=== PATIENT | male | born 1955 | race Caucasian/White ===

== ENCOUNTER → 2020-11-11 08:45 | Outpatient (BNVA) | payer MEDICAID, SELFPAY | PROVIDERS: PCP Internal Medicine; Visit Provider Internal Medicine Pulmonary Disease | DX: J44.9 Chronic obstructive pulmonary disease, unspecified (principal); J45.20 Mild intermittent asthma, uncomplicated; R91.8 Other nonspecific abnormal finding of lung field; R06.00 Dyspnea, unspecified; R60.0 Localized edema; Z87.891 Personal history of nicotine dependence; Z79.899 Other long term (current) drug therapy | CPT/HCPCS: 99212 ==

== ENCOUNTER 2020-11-22 16:51 | Emergency (ER) | payer MEDICAID, SELFPAY ==
[2020-11-22 16:57] VITALS: BP 170/103; PULSE 92; RESP 18; TEMP 37.2; O2SAT 20; BMI 34.7
--- NOTE | 2020-11-22 16:59 | XR_ITS ---
EXAMINATION: XR hand wrist LT CLINICAL INFORMATION: Reason for Exam pt s/p laceration c saw COMPARISON: None. TECHNIQUE: 3 views left hand FINDINGS: There is posttraumatic deformity of the distal tuft of the third distal phalanx with absence of the soft tissues and osseous structures. There is a displaced ossific fracture fragment dorsally and medially. There is soft tissue swelling and deformity. No other abnormality seen in the remaining fingers and hand. XR/XR hand wrist LT IMPRESSION: Posttraumatic deformity of the distal tuft of the third distal phalanx with absence of the distal tuft and surrounding soft tissues consistent with history of laceration. There is a displaced ossific fragment dorsally and medially. There is diffuse soft tissue swelling and deformity.
--- NOTE | 2020-11-22 17:25 | ED.WOUNDLAC ---
HPI - Wound/Laceration General Chief Complaint: Wound/Laceration Stated Complaint: lac with saw Time Seen by Provider: 11/22/20 16:59 Source: patient Mode of arrival: ambulatory Limitations: no limitations History of Present Illness HPI narrative: Patient presents to ED for left middle finger laceration. Patient states he was fixing his boiler and was using a saw and his finger got caught in the saw by accident while not looking. Patient states he is up-to-date with his tetanus. Patient states no other trauma. Related Data Home Medications Medication Instructions Recorded Confirmed acetaminophen 500 mg capsule 500 mg PO QID PRN 11/11/20 albuterol sulfate 90 mcg/actuation 2 puff INHALATION QID 11/11/20 aerosol inhaler allopurinol 100 mg tablet 100 mg PO DAILY 11/11/20 amlodipine 10 mg tablet 10 mg PO DAILY 11/11/20 aspirin 81 mg tablet,delayed 81 mg PO DAILY 11/11/20 release atorvastatin 40 mg tablet 40 mg PO DAILY 11/11/20 bisacodyl 5 mg tablet,delayed 5 mg PO BEDTIME 11/11/20 release fluticasone propionate 50 1 spray INTRANASAL DAILY 11/11/20 mcg/actuation nasal spray,suspension glyburide 5 mg tablet 5 mg PO DAILY 11/11/20 lisinopril 40 mg tablet 40 mg PO DAILY 11/11/20 metformin 1,000 mg tablet 1,000 mg PO DAILY 11/11/20 omeprazole 20 mg tablet,delayed 20 mg PO DAILY 11/11/20 release ondansetron HCl 4 mg tablet 4 mg PO Q6H 11/11/20 peg 3350-electrolytes 236 240 ml PO Q10M 11/11/20 gram-22.74 gram-6.74 gram-5.86 gram solution tramadol 50 mg tablet 50 mg PO DAILY 11/11/20 Previous Rx's Medication Instructions Recorded prednisone 5 mg tablet 5 mg PO DAILY #30 tab 08/29/20 lorazepam 1 mg tablet 1 mg PO ONCE PRN 1 Days #1 tab 11/11/20 clindamycin HCl 300 mg PO TID 10 Days #30 cap 11/22/20 oxycodone-acetaminophen [Percocet] 1 tab PO TID PRN #9 tab 11/22/20 Allergies Allergy/AdvReac Type Severity Reaction Status Date / Time penicillin V Allergy Unknown Unknown Verified 11/11/20 08:48 Penicillins [PENICILLINS] Allergy Unknown RASH Verified 11/11/20 08:48 Review of Systems Review of Systems: Yes all other systems are reviewed and are negative Constitutional: Constitutional: Reports as per HPI and Reports no additional constitutional complaints Eyes: Eyes: Reports as per HPI and Reports no additional eye complaints ENT: Reports system reviewed and no additional complaints, except as documented and Reports as per HPI Cardiovascular: Cardiovascular: Reports as per HPI and Reports no additional cardiovascular complaints Respiratory: Respiratory: Reports as per HPI and Reports no additional respiratory complaints Gastrointestinal: Gastrointestinal: Reports as per HPI and Reports no additional gastrointestinal complaints Genitourinary: Genitourinary: Reports no additional male genitourinary complaints and Reports as per HPI Musculoskeletal: Musculoskeletal: Reports no additional musculoskeletal complaints and Reports as per HPI Comments: Left middle finger laceration. Neurologic: Reports system reviewed and no additional complaints, except as documented and Reports as per HPI Psychiatric: Psychiatric: Reports no additional psychiatric complaints and Reports as per HPI [facility] Past Medical History Medical History (Updated 11/23/20 @ 00:00 by Judy Smith) Diabetes HTN (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) Social History Social History (Updated 11/11/20 @ 08:52 by Sabrina Wilson MA) Smoking Status: Never smoker Use of substances other than those prescribed or required for medical reasons: No Advance Directives: No Advance Directives Information Provided: No Physical Exam Vital Signs: Vital Signs: Last Vital Signs Temp 98.9 F 11/22/20 20:00 Pulse 68 11/22/20 20:00 Resp 15 11/22/20 20:00 BP 142/68 H 11/22/20 20:00 Pulse Ox 98 11/22/20 20:00 Body Mass Index 34.7 Const: General: cooperative, healthy appearing, comfortable, no acute distress, well developed, alert, awake and Physically active Orientation/consciousness: patient oriented x3 HENMT: Head: Yes normal to inspection and Yes No palpable skull fracture present Eyes: General: appearance normal, both eyes and all related structures Neck: Neck: Yes normal visual inspection, Yes full ROM, Yes no lymphadenopathy, Yes no meningeal signs, Yes trachea midline, Yes supple and No tender Chest: Chest palpation & inspection: normal inspection of the chest and normal palpation of entire chest wall Resp: Effort & Inspection: normal respiratory effort and able to speak in complete sentences Cardio: Jugular venous distension: no JVD Heart sounds: S1 normal heart sound present and S2 normal heart sound present GI: Inspection: Yes normal to inspection and No abdominal wall ecchymosis Palpation (GI): Soft to palpation, not firm, nontender, no guarding and not rigid : General: Yes CVA tenderness and Yes no CVA tenderness Back/Spine/Pelvis: Back: no CVA tenderness and CVA tenderness Skin: General skin exam: no rashes or lesions noted and elasticity normal Neuro: General: patient oriented x3, no meningeal signs and CN's II-XI intact bilaterally Cranial nerves: Yes CN's II-XII intact bilaterally Extrem: Other: Left middle finger laceration at the IP through another version presenting as partial amputation/crush injury. Finger is macerated with no borders to bring wound back together. Patient has sensation at the dIP and able to flex and extend finger and at DIP. Psych: Appearance: grossly normal, well kempt and not disheveled Course Course Course Narrative: Patient's laceration is severe when not be able to be repaired in the ED. plan stat x-ray to [facility] any fractures and contact Orthopedic provider on-call. Reevaluation(s) Reevaluation #1: Spoke with PA tomorrow of Orthopedics who contacted Dr. Mar of hand surgeon and recommend patient receive 1 dose of IV antibiotics and very loosely closed the wound as best as possible. Recommend good wound cleaning. And pressure dressing and patient will follow-up with orthopedic clinic. As expected wound margins cannot be repaired will just put some stictcehes to help with the bleeding. Do not need any preop labs. States patient will have office procedure. Time: 18:00 Reevaluation #2: Patient wound was clean with normal saline and Betadine. Also normal saline flush was used to clean directly into the wound. Left middle finger was anesthetized with lidocaine 2% and 5 mL was used. Size 4 nylon sutures was used to loosely hold tip of the DIP to rest the finger as recommended by orthopedic PA who was contacted the hand surgeon. 3 sutures were placed Pressure dressing was placed. Patient given clindamycin IV. Patient states he is up-to-date with tetanus. Time: 20:50 MDM - Wound/Laceration MDM Narrative Medical decision making narrative: Complex laceration of left middle finger, partial amputation Discharge Plan Discharge Clinical Impression: Laceration Patient Disposition: Home, Self-Care Instructions: Laceration (ED) Additional Instructions: Return to the ED immediately for worsening pain, fever, chills, profuse bleeding, or any other concerning symptoms. Please follow-up with hand surgeon you were referred to by Tuesday for office procedure for left middle index finger partial amputation at the distal interphalangeal. Keep wound covered at all times. Please be compliant with antibiotics. Prescriptions: New clindamycin HCl 300 mg capsule 300 mg PO TID 10 Days Qty: 30 RF: 0 oxycodone-acetaminophen [Percocet] 5-325 mg tablet 1 tab PO TID PRN (Reason: pain) Qty: 9 RF: 0 No Action prednisone 5 mg tablet 5 mg PO DAILY Qty: 30 RF: 3 lorazepam [Ativan] 1 mg tablet 1 mg PO ONCE PRN (Reason: anxiety) 1 Days Qty: 1 RF: 0 Referrals: Karen Mar MD [Physician] - 2 days (Please follow-up with hand surgeon by Tuesday for partial amputation of left middle distal interphalangeal of middle finger. Patient discharged on antibiotics and pressure dressing.) Interventions: ED Discharge Assessment Last Done: 11/22/20 21:38 Discharge Date/Time: 11/22/20 21:40 Print Language: Croatian
[2020-11-22] MEDS: Lidocaine HCl 2 % MPF 5 ML VIAL INFILTRATI ×2 (18:44→18:45)
[2020-11-22] MEDS: oxyCODONE HCl Immed Release 5 MG TABLET PO (18:44)
[2020-11-22 19:03] VITALS: BP 147/91; PULSE 68; RESP 15; O2SAT 98
[2020-11-22] MEDS: Ketorolac Tromethamine 30 MG/ML VIAL IVPUSH (19:15)
[2020-11-22] MEDS: Clindamycin Phosphate/D5W 600 MG/50 ML PIGGYBACK 100 MG IV (19:15)
[2020-11-22 20:00] VITALS: BP 142/68; PULSE 68; RESP 15; TEMP 37.2; O2SAT 98
== END 2020-11-22 21:40 | disposition home or self-care (01) ==
PROVIDERS: Emergency Provider Emergency Medicine
DX: S68.123A Partial traumatic metacarpophalangeal amputation of left middle finger, initial encounter (principal); W31.2XXA Contact with powered woodworking and forming machines, initial encounter; Y93.89 Activity, other specified; Y92.018 Other place in single-family (private) house as the place of occurrence of the external cause; Y99.9 Unspecified external cause status
CPT/HCPCS: 13131; 73110; 73130; 96365; 96375; 99284; J1885

== ENCOUNTER 2020-11-24 12:19 | Outpatient (REF) | payer MEDICAID, SELFPAY ==
--- NOTE | 2020-11-24 12:24 | XR_ITS ---
EXAMINATION: XR HAND, LEFT CLINICAL INFORMATION: Laceration COMPARISON: Previous x-ray October 2019 TECHNIQUE: PA, lateral, and oblique views of the left hand. FINDINGS: There is amputation of the distal tuft of the left third finger. There is an ossified density in the soft tissues dorsal to the remaining distal phalanx of the third finger. This is new in the interval from October 2019. There is evidence of trauma to the overlying soft tissues. No soft tissue foreign body is seen. There is a cortical excrescence of the radial distal aspect of the proximal phalanx of the fifth finger probably representing an osteochondroma. This is similar to previous exam. XR/XR hand LT 2V IMPRESSION: Amputation of the distal tuft of the third finger and trauma to the overlying soft tissues. Soft tissue ossification dorsal to the remaining distal phalanx questionable for displaced fracture fragment.
== END 2020-11-24 12:20 | disposition home or self-care (01) ==
LOC: HO.XRAY 12:19
PROVIDERS: Visit Provider Orthopaedic Surgery
DX: S68.623A Partial traumatic transphalangeal amputation of left middle finger, initial encounter (principal)
CPT/HCPCS: 73120; 99202

== ENCOUNTER 2020-11-25 07:42 | Day surgery (SDC) | payer MEDICAID, SELFPAY ==
[2020-11-25 08:13] LABS: Glucose, Whole Blood 133 mg/dL (60-115)
[2020-11-25 08:16] VITALS: BMI 36.1
[2020-11-25 08:24] VITALS: BP 169/91; PULSE 58; RESP 18; TEMP 37.2; O2SAT 98
--- NOTE | 2020-11-25 11:37 | W.PM.OPN ---
Operative Note Operative Note Date of Service: 11/25/20 Narrative: Operative Note Narrative: Preop diagnosis: Left middle finger partial traumatic amputation Postop diagnosis: Same Procedure: 1. Left middle finger DIP level revision amputation 2. I&D of left middle finger amputation site Surgeon: Karen Mar MD Anesthesia: Mac plus regional block Findings: Traumatic amputation through distal phalanx with significant soft tissue injury and loss Implants: None Tourniquet time: None minutes EBL: 5.0 ml Specimen: Known Drains: None Complications: None Disposition: Brought to the recovery room in stable condition Plan: Continue 10 day course of oral antibiotics Follow-up in 1 week for wound check Anticipate suture removal 3 weeks postop Indications: The patient is a 65 year old man with a left middle finger traumatic amputation through the distal phalanx secondary to a table saw . The risks and benefits of operative treatment, including but not limited to risk of damage to blood vessels, nerves, tendons, infection, recurrence, persistent pain or numbness, incomplete resolution of preoperative symptoms, or need for further surgery were discussed with the patient and they wished to proceed with surgery. Procedure: Once consent was obtained a digital block was performed by me in preop hold using a combination of 1% lidocaine with 1/100 1000 epinephrine. The patient was brought back to the operating suite and placed in the operating table in a supine position. A tourniquet was applied to the proximal aspect of the left upper extremity and the limb was prepped and draped in a standard surgical fashion. A tourniquet was not inflated during the case. There was significant soft tissue loss and degloving of the distal phalanx. The wound was relatively clean with no debris or signs of infection. The wound was debrided devitalized tissue using iris scissors and # 15. Blade. After evaluating the soft tissues I made the decision to proceed with a DIP level revision amputation. The remaining distal phalanx was carefully detached from its tendinous and ligamentous insertions and the distal phalanx was removed. A rongeur was used to remove some of the cartilage from the distal articular surface of the middle phalanx. The wound was then copiously irrigated with normal saline.. There was a flap of soft tissue attached by a fairly narrow skin bridge across the dorsum of the digit extending ulnarly. Even though it had a fairly narrow pedicle of tissue, a flap of tissue appear to be reasonably well perfused. This flap of tissue was used to cover some dorsally and then over the distal ulnar aspect of the amputation site. It was reapproximated to some of the remaining volar soft tissue using some 4-0 Prolene suture material. I was satisfied with our closure, and the tissue appeared to be well perfused. A sterile dressing was then applied, assuring that it was relatively loose about the digit. The patient appears to have tolerated the procedure well and with no complications. All digits were well vascularized conclusion of the case.
[2020-11-25 13:13] VITALS: BP 147/87; PULSE 59; RESP 18; TEMP 37.1; O2SAT 98
== END 2020-11-25 13:38 | disposition home or self-care (01) ==
PROVIDERS: Visit Provider Orthopaedic Surgery
PROC: (CPT 26951; principal; 2020-11-25 09:50)
DX: S68.623A Partial traumatic transphalangeal amputation of left middle finger, initial encounter (principal); W27.0XXA Contact with workbench tool, initial encounter; Y93.89 Activity, other specified; Y92.9 Unspecified place or not applicable; Y99.8 Other external cause status; I10 Essential (primary) 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; E11.9 Type 2 diabetes mellitus without complications; J45.909 Unspecified asthma, uncomplicated; Z79.51 Long term (current) use of inhaled steroids; Z79.84 Long term (current) use of oral hypoglycemic drugs; Z88.0 Allergy status to penicillin; Z79.899 Other long term (current) drug therapy; Z79.52 Long term (current) use of systemic steroids
CPT/HCPCS: 26951; 11042; 82947

== ENCOUNTER → 2020-12-02 12:33 | Outpatient (BNVA) | payer MEDICAID, SELFPAY | PROVIDERS: Visit Provider Orthopaedic Surgery | DX: S68.623D Partial traumatic transphalangeal amputation of left middle finger, subsequent encounter (principal) | CPT/HCPCS: 99212 ==

== ENCOUNTER → 2020-12-09 08:34 | Outpatient (BNVA) | payer MEDICAID, SELFPAY | PROVIDERS: Visit Provider Orthopaedic Surgery | DX: S68.623D Partial traumatic transphalangeal amputation of left middle finger, subsequent encounter (principal) | CPT/HCPCS: 99212 ==

== ENCOUNTER → 2020-12-10 13:20 | Outpatient (REF) | payer MEDICAID, SELFPAY ==
--- NOTE | 2020-12-10 13:24 | CA_ITS ---
Transthoracic Echocardiogram Patient (Last, First, Middle): Abimael Duncan, Gender: Male Date of : 1955 Age: 65 Procedure Date: 12/10/2020 Procedure Type: Transthoracic Echocardiogram Location: OP Height: 170.18 cm Weight: 104.33 kg BSA: 2.15 m2 Heart Rate: bpm BP: 128 / 70 mmHg Tower Foreman: Referring MD: Eliecer Tatum MD Band Instrument Maker: Kevin Chester MD Symptoms: R06.00 - Dyspnea, unspecified Study Quality: Good ECG Rhythm: Sinus Conclusions: - Essentially normal study Findings Left Ventricle Normal left ventricular size, thickness, and systolic function. The visually estimated ejection fraction is between 60-65%. Diastolic function is normal for age. Right Ventricle Normal right ventricular cavity size and systolic function. Atria The left atrium is mildly dilated. The right atrium is normal in size. Aortic Valve Normal aortic valve structure and function. There is no aortic valve stenosis. There is no aortic valve regurgitation. Mitral Valve Normal mitral valve structure and function. There is trace mitral valve regurgitation. There is no mitral valve stenosis. Pulmonic Valve The pulmonic valve is likely normal. Tricuspid Valve Normal tricuspid valve structure. There is trace tricuspid valve regurgitation. The right ventricular systolic pressure is normal. The right ventricular systolic pressure is 25 mmHg. Normal right atrial pressure. There is no evidence of pulmonary 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. Great Vessels All visible segments of the aorta are normal in size. The pulmonary artery was not well visualized. Venous The inferior vena cava is normal in size and collapses greater than 50% with inspiration. Pericardium/Pleural There is no evidence of pericardial effusion. Prior Study Comparison No significant change compared to prior study dated: 03/05/2019. Measurements 2D Linear Measurements IVSd: 1.28 0.6-0.9/0.6-1.0 cm LVIDd: 5.03 3.9-5.3/4.2-5.9 cm LVIDd Index: 2.34 2.4-3.2/2.2-3.1 cm/m2 LVIDs: 3.01 2.0-3.6 cm LVPWd: 1.28 0.7-1.1 cm Ao Root: 3.10 2.1-3.5 cm LA Diam: 4.10 2.7-3.8/3.0-4.0 cm LAIDs Index: 1.91 1.5-2.3 cm/m2 LV Mass: 322.38 67-162/88-224 g LV Mass Index: 149.94 43-95/49-115 g/m2 LVOT Diam: 2.20 3.0+(-)1.3 cm 2D Systolic Function EF 4C: 61.50 >55% EF 2C: 59.00 >55% EF BiP: 58.90 >55% Mitral Valve MV Pk E: 0.84 MV PK A: 0.73 MV Decel Time: 222.00 E/A: 1.20 E'Lateral: 9.19 E'Medial: 6.77 E/E' Med: 12.40 E/E' Lat: 9.10 PHT: 65.00 MVA PHT: 3.38 Decel [place]: 3.78 Aortic Valve AoV Pk Dwayne: 1.71 AoV Mn Dwayne: 1.02 AoV VTI: 0.36 AoV Pk Grad: 12.00 Aov Mn Grad: 5.00 DANA Cont.VTI: 2.84 LVOT LVOT Pk Dwayne: 1.17 LVOT Mn Dwayne: 0.78 LVOT VTI: 0.27 LVOT Pk Grad: 5.00 LVOT Mn Grad: 3.00 LVOT Diam: 2.20 LVOT Area: 3.80 Diastolic Function MV Pk E: 0.84 MV Pk A: 0.73 E/A: 1.20 E'Medial: 6.77 E/E' Med: 12.40 E' Laterial: 9.19 E/E' Lat: 9.10 Tricuspid Valve TR Pk Dwayne: 2.37 TR Pk Grad: 22.00 RA Press: 3.00 RVSP: 25.00 Great Vessels Aorta Ao Root-2D: 3.10 2.0-3.7 cm Ao Asc: 3.80 2.1-3.4 cm Pulmonary Valve PV Pk Dwanye: 1.21 Peak PV Grad: 6.00 Updated in Other Vendor System with Status of Final Kevin Chester MD electronically signed on 12/11/2020 2:03:55 PM with status of Final
== END ==
LOC: HO.CARD 13:20
PROVIDERS: Visit Provider Internal Medicine Pulmonary Disease
DX: R06.00 Dyspnea, unspecified (principal)
CPT/HCPCS: 93306

== ENCOUNTER → 2020-12-16 13:25 | Outpatient (BNVA) | payer MEDICAID, SELFPAY | PROVIDERS: Visit Provider Orthopaedic Surgery | DX: S68.623D Partial traumatic transphalangeal amputation of left middle finger, subsequent encounter (principal); M25.649 Stiffness of unspecified hand, not elsewhere classified | CPT/HCPCS: 99212 ==

== ENCOUNTER → 2021-01-02 10:00 | Outpatient (BNVA) | payer MEDICAID, SELFPAY | PROVIDERS: Visit Provider Physician Assistant | DX: S68.623A Partial traumatic transphalangeal amputation of left middle finger, initial encounter (principal) | CPT/HCPCS: 99212 ==

== ENCOUNTER → 2021-01-09 11:00 | Outpatient (BNVA) | payer MEDICAID, SELFPAY | PROVIDERS: PCP Nurse Practitioner Family; Visit Provider Internal Medicine Pulmonary Disease | DX: J44.9 Chronic obstructive pulmonary disease, unspecified (principal); K21.9 Gastro-esophageal reflux disease without esophagitis; R91.8 Other nonspecific abnormal finding of lung field | CPT/HCPCS: 99212 ==

== ENCOUNTER → 2021-01-14 10:05 | Outpatient (BNVA) | payer MEDICAID, SELFPAY | PROVIDERS: PCP Internal Medicine; Visit Provider Student in an Organized Health Care Education/Training Program | DX: M35.3 Polymyalgia rheumatica (principal); M1A.00X0 Idiopathic chronic gout, unspecified site, without tophus (tophi); Z79.52 Long term (current) use of systemic steroids | CPT/HCPCS: 99212 ==

== ENCOUNTER → 2021-01-19 12:11 | Outpatient (BNVA) | payer MEDICAID, SELFPAY | PROVIDERS: Visit Provider Orthopaedic Surgery | DX: S68.623D Partial traumatic transphalangeal amputation of left middle finger, subsequent encounter (principal) | CPT/HCPCS: 99212 ==

== ENCOUNTER 2021-02-05 10:30 | Outpatient (RCR) | payer MEDICAID, SELFPAY ==
--- NOTE | 2020-12-22 13:28 | MHC.OT.OEV ---
[address] [phone] F: [phone] Occupational Therapy Evaluation Diagnosis: S/P L MF transphalagngeal DP amputation Date of Onset: 11/22/20 Date of Surgery: 11/25/20 Attending Provider: Karen Mar Prescribed Treatment: Evaluate and treat MD Follow Up Appointment: 12/23/20 History of Current Condition: Pt was fixing boiler and got his left MF finger caught in a saw while not looking. Underwent partial traumatic transphalangeal amputation of the left middle finger on 11/25/[address] Mar. 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 Independent with ADLs. Living Situation, Family and/or Social Support: Lives with , has supportive son Current Level of Function and Occupation Self Care, Employment, Leisure: assists with IADLs. Emerging independence with ADLs since surgery. Sleep: Occasional disturbances with sleep due to pain Driving: No problems reported Vision: Low vision Pain Assessment Pain Score: 0-6/10 Pain Scale Used: Numeric (0 - 10) Pain Location and Description: L MF Aggravating Factors: Cold Alleviating Factors: Exercise, ball squeeze, not currently taking pain medication Skin and Soft Tissue Assessment Skin and Soft Tissue: Missing Swelling Wound Comments: Healing wound on L MF, Dry and Cracked. Scant blood drainage. Pin size opening. R hand arthritic particularly in IPs Sensory Assessment Temperature: Light Touch: Left Impaired Proprioception: Vibration: Comments: [place] beatriz monofilaments: diminished protective sensation in L digits, reports numbness in L MF HX of DM Edema Assessment Upper Extremity: Left Impaired Lower Extremity: Comments: L PIP circ 7.7 cm; MCP circ 23.2 cm R PIP circ 8.0cm; MCP circ 23.5 cm Dexterity Assessment Dexterity: B/L Impaired Comments: Functional dexterity: L 80.02 sec (nonfunctional), R 61 sec Special Tests Comments: AROM(PROM) Strength Wrist Flexion: Extension: Ulnar Deviation: Radial Deviation: Comments: GROSSLY WFL, GUARDING LUE Flexion: Extension: Ulnar Deviation: Radial Deviation: Comments: Digits Index MCP: PIP: DIP: Long MCP: L 0/60; R 0/69 PIP: L 0/51; R 0/90 DIP: Ring MCP: PIP: DIP: Small MCP: PIP: DIP: Comments: Gross Grasp: R 55 lbs Lateral Pinch: R 11 lbs Two-Point Pinch: R 2 lbs Three-Jaw Navin: Comments: Deferred L hand strength Patient Education Primary Language: Photofinishing Laboratory Worker Required: No Current Knowledge: Understands information with skills for self-management Teaching Method: Demonstration Handouts Education Needs Identified on Evaluation: ADL's Disease Information Equipment Use Exercise Pain How did patient/family demonstrate learning? Patient demonstrates Patient verbalizes Barriers to Learning: Vision Readiness for Learning: Accepting Who was educated? 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 Pt is now 3 weeks, 6 days post surgery with limitations in ROM, strength, pain, sensation and functional grasp. Pt is retired and independent at baseline with ADLs, IADLs and drives. Pt will continue to benefit from skilled OT to achieve optimal functional level. STG Duration: 3 weeks Short Term Goals: Ind HEP Ind edema management Ind with sensory regeneration tasks L PIP flexion >75 deg L gross grasp >40 lbs Report pain <3/10 with functional use LTG Duration: 6 weeks Obstetrics Gyn Physician Goals: L PIP flexion >85 deg L gross grasp >50 lbs Improve functional dexterity test < 45 sec in L hand Make fist with L tip <1cm to DPC Frequency and Duration: The patient will be seen 2x/week 6 weeks Treatment Plan: Therapeutic Exercise Therapeutic Activity Home Exercise Program Splinting Neuro Re-ed Patient Education Desensitization/Sensory Re-ed Edema Control ADL Training Ultrasound Paraffin Fluidotherapy MHP Cold Packs Joint Mobilization Soft Tissue Mobilization Kinesiotaping Electronically Signed By: Poornima Chavez OT/s Reviewed/agree with student documentation: Yes Therapist: Vanda Garcia OTR/L Please sign and return to therapist, Thank you for your referral.
--- NOTE | 2021-02-05 11:07 | MHC.OT.DC ---
[address] [phone] F: [phone] Occupational Therapy Discharge Note Provider: Dr. Mar Diagnosis: S/P L MF transphalagngeal DP amputation Date of Surgery: 11/25/20 Date of Evaluation: 12/22/20 Date of Discharge: 02/05/21 Treatments to Date: 5 Cancellations to Date: 0 No Shows to Date: 1 Discharge Status: Achieved Goals Improved Function Independent with HEP Discharge Summary: Abimael is progressing very well. He has good sense of self management for range, tendon gliding, strengthening, desensitization and scar/stump/edema management w/ massage and coban wrapping. He is motivated and hopeful to return to full activity soon. Left D3 MCP 84 PIP flex 90 degrees Left D3 1 cm tip-palm Gross Grasp L 55lb [place] Krista 4.31 Electronically Signed By: Amber Yates OTR/L Please Sign and return to therapist, thank you for your referral.
== END 2021-02-24 07:48 | disposition other institution (70) ==
LOC: HO.OT 10:30
PROVIDERS: PCP Internal Medicine; Visit Provider Orthopaedic Surgery
DX: S68.623D Partial traumatic transphalangeal amputation of left middle finger, subsequent encounter (principal); M25.649 Stiffness of unspecified hand, not elsewhere classified
CPT/HCPCS: 97110; 97140; 97167; 97530

== ENCOUNTER → 2021-02-12 10:58 | Outpatient (BNVA) | payer MEDICAID, SELFPAY | PROVIDERS: Visit Provider Physician Assistant ==

== ENCOUNTER → 2021-02-23 08:44 | Outpatient (BNVA) | payer MEDICAID, SELFPAY | PROVIDERS: Visit Provider Orthopaedic Surgery | DX: S68.623D Partial traumatic transphalangeal amputation of left middle finger, subsequent encounter (principal) | CPT/HCPCS: 99212 ==

== ENCOUNTER → 2021-02-25 14:21 | Outpatient (BNVA) | payer MEDICAID, SELFPAY | PROVIDERS: Visit Provider Internal Medicine Cardiovascular Disease | DX: R06.00 Dyspnea, unspecified (principal); I10 Essential (primary) 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; Z79.899 Other long term (current) drug therapy | CPT/HCPCS: 93005; 99212 ==

== ENCOUNTER 2021-03-19 08:24 | Day surgery (SDC) | payer MEDICAID, SELFPAY ==
[2021-03-13 10:47] VITALS: BMI 35.7
--- NOTE | 2021-03-18 10:40 | HO.ANESPROP2 ---
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) Abnormal colonoscopy (Acute) HTN (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) (Acute) Polymyalgia rheumatica (Acute) Past Medical History Medical History Asthma Asthma-COPD overlap syndrome Diabetes Gastroesophageal reflux disease Gout History of high cholesterol HTN (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) 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 home 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 Polymyalgia rheumatica Pulmonary nodules Surgical History Surgical History Hx of circumcision Hx of colonoscopy Status post amputation of finger Social History Social History Household Members: Spouse Alcohol intake: current Alcohol intake frequency: does not drink Smoking Status: Never smoker Advance Directives Information Provided: No Current occupational status: unemployed Meds Allergies Allergy/AdvReac Type Severity Reaction Status Date / Time Penicillins [PENICILLINS] Allergy Intermediate RASH Verified 03/13/21 10:36 Home Medications Medication Instructions Recorded Confirmed Last Taken Type acetaminophen 500 mg capsule 500 mg PO QID PRN 11/11/20 02/12/21 Unknown History albuterol sulfate 90 mcg/actuation 2 puff INHALATION QID 11/11/20 03/13/21 Unknown History aerosol inhaler amlodipine 10 mg tablet 10 mg PO DAILY 11/11/20 03/13/21 Unknown History aspirin 81 mg tablet,delayed 81 mg PO DAILY 11/11/20 03/19/21 03/01/21 History release atorvastatin 40 mg tablet 40 mg PO DAILY 11/11/20 03/13/21 Unknown History fluticasone propionate 50 1 spray INTRANASAL DAILY 11/11/20 03/13/21 Unknown History mcg/actuation nasal spray,suspension glyburide 5 mg tablet 5 mg PO DAILY 11/11/20 03/13/21 Unknown History lisinopril 40 mg tablet 40 mg PO DAILY 11/11/20 03/13/21 Unknown History metformin 1,000 mg tablet 1,000 mg PO DAILY 11/11/20 03/13/21 Unknown History ondansetron HCl 4 mg tablet 4 mg PO Q6H 11/11/20 03/13/21 Unknown History tramadol 50 mg tablet 50 mg PO DAILY 11/11/20 03/13/21 Unknown History fluticasone furoate-vilanterol 1 puff PO DAILY 03/13/21 03/13/21 Unknown History [Breo Ellipta] Exam Exam Date and Time: March 18, 2021 1040 Height,Weight and Vital Signs: Height 5 ft 7 in Weight 103.6 kg Assessment and Plan Assessment Anesthesia Assessment: Chart Reviewed Documented by User: Marnie Temple 03/19/21 09:40 [facility] Past Medical History Medical History Asthma Asthma-COPD overlap syndrome Diabetes Gastroesophageal reflux disease Gout History of high cholesterol 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 (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) 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 Polymyalgia rheumatica Pulmonary nodules Surgical History Surgical History Hx of circumcision Hx of colonoscopy Status post amputation of finger Social History Social History Household Members: Spouse Alcohol intake: current Alcohol intake frequency: does not drink Smoking Status: Never smoker Advance Directives Information Provided: No Current occupational status: unemployed Meds Allergies Allergy/AdvReac Type Severity Reaction Status Date / Time Penicillins [PENICILLINS] Allergy Intermediate RASH Verified 03/13/21 10:36 Home Medications Medication Instructions Recorded Confirmed Last Taken Type acetaminophen 500 mg capsule 500 mg PO QID PRN 11/11/20 02/12/21 Unknown History albuterol sulfate 90 mcg/actuation 2 puff INHALATION QID 11/11/20 03/13/21 Unknown History aerosol inhaler amlodipine 10 mg tablet 10 mg PO DAILY 11/11/20 03/13/21 Unknown History aspirin 81 mg tablet,delayed 81 mg PO DAILY 11/11/20 03/19/21 03/01/21 History release atorvastatin 40 mg tablet 40 mg PO DAILY 11/11/20 03/13/21 Unknown History fluticasone propionate 50 1 spray INTRANASAL DAILY 11/11/20 03/13/21 Unknown History mcg/actuation nasal spray,suspension glyburide 5 mg tablet 5 mg PO DAILY 11/11/20 03/13/21 Unknown History lisinopril 40 mg tablet 40 mg PO DAILY 11/11/20 03/13/21 Unknown History metformin 1,000 mg tablet 1,000 mg PO DAILY 11/11/20 03/13/21 Unknown History ondansetron HCl 4 mg tablet 4 mg PO Q6H 11/11/20 03/13/21 Unknown History tramadol 50 mg tablet 50 mg PO DAILY 11/11/20 03/13/21 Unknown History fluticasone furoate-vilanterol 1 puff PO DAILY 03/13/21 03/13/21 Unknown History [Breo Ellipta] Exam Airway Mallampati Class: III TM Dist: >3cm Denture: Upper and Lower Loose/Missing/Broken Teeth: Yes, Upper and Lower Heart: RRR Lungs: CTA Assessment and Plan Assessment Anesthesia Assessment: Anesthesia Plan Discussed Final Anesthetic Review NPO: Yes ASA Class: III Final Preanesthetic Review: Meds/Allgs Chart Reviewed, Consent Obtained/Reviewed and Anes Risks/Benef Reviewed Patient Risk: Intermediate Procedure Risk: Low Anesthetic Plan Anesthetic Plan: MAC: Disposition: Standard PACU
[2021-03-19 08:29] VITALS: BP 157/89; PULSE 86; RESP 20; TEMP 36.1; O2SAT 98
[2021-03-19] MEDS: Lactated Ringers 1,000 ML 100 ML IVCONT (08:40)
[2021-03-19 09:13] LABS: Glucose, Whole Blood 189 mg/dL (60-115)
--- NOTE | 2021-03-19 09:37 | MHC.SHP ---
Pre-Procedural Eval Section B Chief Complaint: Screening Relevant Family History (Specify if Yes): No Relevant Social History: None Present Medications: see Short Stay Collaborative assessment Medical History: Significant History (Asthma Asthma-COPD overlap syndrome Diabetes Gastroesophageal reflux disease Gout History of high cholesterol HTN (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) [facility] 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 Polymyalgia rheumatica Pulmonary nodules) History of Previous Operations: Relevant previous surgery/procedure and date(s) (Hx of circumcision Hx of colonoscopy Status post amputation of finger) Allergies: Allergies Allergy/AdvReac Type Severity Reaction Status Date / Time Penicillins [PENICILLINS] Allergy Intermediate RASH Verified 03/13/21 10:36 Review of Systems Sugical H&P ROS: Negative: Constitution, Cardiovascular, Respiratory, Neurological, Psychiatric, Hem-Onc, Allergic/Immunologic, Gastrointestinal, Genitourinary, Musculoskeletal, Integumentary, Endocrine and Eyes/Ears/Nose/Throat Exam Surgical H&P Exam: Normal: HEENT, Normal: Heart, Normal: Lungs, Normal: Extremities, Normal: Abdomen, Normal: Skin and Normal: Neurological Plan Diagnosis/Plan: Unchanged I have reviewed the history and physical and performed a pertinent physical examination on my patient. No changes have occurred unless specified.
--- NOTE | 2021-03-19 09:39 | PM.OP ---
Brief Operative Note Date of Service: 03/19/21 Pre-op diagnosis: colon screening Post-op diagnosis: same Procedure: see op note Surgeon: Louis Milner MD Anesthesia: MAC Was an Safekeeping Clerk used for this Procedure?: No Estimated blood loss (mL): 0 Condition: stable Disposition: PACU
--- NOTE | 2021-03-19 09:39 | W.PM.OPN ---
Operative Note Operative Note Date of Service: 03/19/21 Narrative: Operative Information Procedure Description: Colonoscopy COLONOSCOPY Instrument: Olympus variable stiffness pediatric scope 190L Colonoscopy Monitoring: Vital signs and clinical assessment, continuous EKG monitoring, Pulse oximetry, Carbon Dioxide monitoring and blood pressure monitoring were done throughout the procedure. Colon withdrawal time was 15 minutes. Procedure: The patient was placed in the left lateral decubitis position and pre-procedure medications were administered. After a digital rectal examination of the ano-rectum, the video colonoscope was inserted into the rectum and advanced through the colon to the cecum/TI. The colonoscope was slowly withdrawn in a retrograde panoramic fashion and the colon mucosa was carefully examined including a retroflexed view of the rectum. Findings and interventions are described below. Procedure Difficulty:easy Findings: Severe simmons diverticulosis with variable sized tics thru out the colon Terminal Ileum-normal Cecum:normal Ascending Colon: 9-10 mm sessile polyp removed in retroflexion with cold snare. 5-7 mm sessile polyp removed with forceps. Transverse Colon -normal Descending Colon:normal Sigmoid Colon: normal Rectum: Retroflexion with moderate sized internal hemorrhoids, grade I Anorectum - normal Colon preparation: [place] Bowel Preparation Scale Right colon; 2 Transverse colon: 2 Left colon; 1 (0 = Unprepared colon segment with mucosa not seen due to solid stool that cannot be cleared. 1 = Portion of mucosa of the colon segment seen, but other areas of the colon segment not well seen due to staining, residual stool and/or opaque liquid. 2 = Minor amount of residual staining, small fragments of stool and/or opaque liquid, but mucosa of colon segment seen well. 3 = Entire mucosa of colon segment seen well with no residual staining, small fragments of stool or opaque liquid) Impression and Post Procedure Diagnosis: polyps internal hemorrhoids diverticular disease Plan: High fiber diet leaflet Avoid straining at stool, epsom salts and sitz bath, anusol supps or cream prn Repeat Colonoscopy in 1-2 years or earlier if clinically indicated Above findings were reviewed with the patient and relevant handouts were provided if indicated.
[2021-03-19 10:23] VITALS: BP 116/69; PULSE 63; RESP 16; TEMP 36.6; O2SAT 95
[2021-03-19 10:38] VITALS: BP 132/86; PULSE 70; RESP 17; TEMP 36.6; O2SAT 98
== END 2021-03-19 11:02 | disposition home or self-care (01) ==
PROVIDERS: Visit Provider Internal Medicine Gastroenterology
PROC: 0DJD8ZZ Inspection of Lower Intestinal Tract, Via Natural or Artificial Opening Endoscopic (ICD-10-PCS; CPT 45378; principal; 2021-03-19 10:00)
DX: Z12.11 Encounter for screening for malignant neoplasm of colon (principal); D12.2 Benign neoplasm of ascending colon; K57.30 Diverticulosis of large intestine without perforation or abscess without bleeding; K64.0 First degree hemorrhoids; J44.9 Chronic obstructive pulmonary disease, unspecified; R91.8 Other nonspecific abnormal finding of lung field; I10 Essential (primary) 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; E11.9 Type 2 diabetes mellitus without complications; M35.3 Polymyalgia rheumatica; Z79.52 Long term (current) use of systemic steroids; Z79.82 Long term (current) use of aspirin; Z79.51 Long term (current) use of inhaled steroids; Z79.84 Long term (current) use of oral hypoglycemic drugs; Z79.899 Other long term (current) drug therapy
CPT/HCPCS: 45385; 45380; 82947; 88305

== ENCOUNTER → 2021-04-15 09:37 | Outpatient (BNVA) | payer MEDICARE, MEDICAID, SELFPAY | PROVIDERS: Visit Provider Physician Assistant | DX: D12.6 Benign neoplasm of colon, unspecified (principal); K57.30 Diverticulosis of large intestine without perforation or abscess without bleeding | CPT/HCPCS: 99212 ==

== ENCOUNTER → 2021-08-26 14:14 | Outpatient (BNVA) | payer MEDICARE, MEDICAID, SELFPAY | PROVIDERS: Visit Provider Internal Medicine Cardiovascular Disease | DX: I10 Essential (primary) 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 (principal) | CPT/HCPCS: 99212 ==

== ENCOUNTER → 2021-09-02 09:33 | Outpatient (BNVA) | payer MEDICARE, MEDICAID, SELFPAY | PROVIDERS: Visit Provider Internal Medicine Pulmonary Disease | DX: J45.909 Unspecified asthma, uncomplicated (principal); R91.8 Other nonspecific abnormal finding of lung field | CPT/HCPCS: 99212 ==

== ENCOUNTER → 2021-09-09 09:47 | Outpatient (BNVA) | payer MEDICARE, MEDICAID, SELFPAY | PROVIDERS: PCP Internal Medicine; Visit Provider Nurse Practitioner Family | DX: M35.3 Polymyalgia rheumatica (principal); M1A.00X0 Idiopathic chronic gout, unspecified site, without tophus (tophi) | CPT/HCPCS: 99212 ==

== ENCOUNTER 2021-10-12 09:54 | Outpatient (REF) | payer MEDICARE, MEDICAID, SELFPAY ==
--- NOTE | ~2021-10-12 | XR_ITS ---
EXAMINATION: XR HAND, RIGHT XR HAND, LEFT CLINICAL INFORMATION: Bilateral pain. COMPARISON: Radiographs right hand 11/03/2019, radiographs left hand 11/24/2020. TECHNIQUE: Each hand is imaged in 4 views. There are total of 8 views. FINDINGS: Right: There is no fracture or dislocation or destructive process. Ulnar variance is neutral. There is no interval carpal narrowing or erosive change or chondrocalcinosis. Again, there is a benign corticated ossicle lateral wrist just distal to the radial styloid. The MCP and PIP joints are unremarkable. Again, there are osteoarthritic changes involving the 3rd finger DIP joint. No erosive change. Small exostosis from the lateral aspect head 1st metacarpal, stable. No periarticular mineralization or tophi. Left: There has been amputation of the 3rd finger distal phalanx since prior study 11/24/2020. No destructive process or periostitis. The ulnar variance is neutral. The carpus shows no joint narrowing or erosive change or chondrocalcinosis. The MCP, PIP, DIP joints are unremarkable. XR/XR hand RT min 3V IMPRESSION: Right: -Osteoarthritic changes 3rd finger DIP joint similar to prior study. -No erosive changes. Left: -Amputation 3rd finger distal phalanx since prior exam 11/24/2020. -No focal joint narrowing or erosive changes.
--- NOTE | ~2021-10-12 | XR_ITS ---
EXAMINATION: XR SHOULDER, LEFT CLINICAL INFORMATION: Left shoulder pain COMPARISON: 01/15/2020 TECHNIQUE: AP external rotation, Grashey, scapular Y, and axillary views of the left shoulder. FINDINGS: At the glenohumeral joint, alignment is normal and joint space is maintained. No glenohumeral arthritic deformity, fracture or subluxation. The humeral head is well positioned over the intact glenoid. The acromioclavicular joint is notable for a small marginal osteophytes. No hook-shaped acromion or acromiohumeral distance narrowing. No calcium deposition within rotator cuff tendons. The visualized left lung is normal. XR/XR shoulder LT min 2V IMPRESSION: * Chronic, mild osteoarthritis of the acromioclavicular joint. * No evidence of calcific tendinitis at the rotator cuff.
--- NOTE | ~2021-10-12 | XR_ITS ---
EXAMINATION: XR HAND, RIGHT XR HAND, LEFT CLINICAL INFORMATION: Bilateral pain. COMPARISON: Radiographs right hand 11/03/2019, radiographs left hand 11/24/2020. TECHNIQUE: Each hand is imaged in 4 views. There are total of 8 views. FINDINGS: Right: There is no fracture or dislocation or destructive process. Ulnar variance is neutral. There is no interval carpal narrowing or erosive change or chondrocalcinosis. Again, there is a benign corticated ossicle lateral wrist just distal to the radial styloid. The MCP and PIP joints are unremarkable. Again, there are osteoarthritic changes involving the 3rd finger DIP joint. No erosive change. Small exostosis from the lateral aspect head 1st metacarpal, stable. No periarticular mineralization or tophi. Left: There has been amputation of the 3rd finger distal phalanx since prior study 11/24/2020. No destructive process or periostitis. The ulnar variance is neutral. The carpus shows no joint narrowing or erosive change or chondrocalcinosis. The MCP, PIP, DIP joints are unremarkable. XR/XR hand LT min 3V IMPRESSION: Right: -Osteoarthritic changes 3rd finger DIP joint similar to prior study. -No erosive changes. Left: -Amputation 3rd finger distal phalanx since prior exam 11/24/2020. -No focal joint narrowing or erosive changes.
[2021-10-12 10:04] LABS: MANUAL DIFF FLAG NO
[2021-10-12 10:37] LABS: Basophils Percent Auto 0.2 % (0-2); Eosinophils Absolute Auto 0.3 X10*3/uL (0.0-0.4); Eosinophils Percent Auto 4.3 % (0-4); Hematocrit 43.5 % (42.0-52.0); Hemoglobin 14.5 g/dl (14.0-18.0); Imm Gran Abs Auto 0.02 X10*3/uL (0.00-0.03); Imm Gran Pct Auto 0.3 % (0.0-0.4); Lymphocytes Absolute Auto 2.1 X10*3/uL (1.2-4.9); Lymphocytes Percent Auto 36.3 % (20-40); Mean Corpuscular HGB Conc 33.3 g/dl (31.0-36.0); Mean Corpuscular Hemoglobin 29.8 pg (27.0-33.0); Mean Corpuscular Volume 89.5 fL (80.0-98.0); Mean Platelet Volume 11.4 fL (9.4-12.4); Monocytes Absolute Auto 0.5 X10*3/uL (0.1-1.2); Monocytes Percent Auto 9.3 % (2-11); Neutrophils Absolute Auto 2.9 x10*3/uL (2.0-8.3); Neutrophils Percent Auto 49.6 % (45-73); Platelet Count 267 X10*3/uL (160-400); Red Blood Count 4.86 X10*6/uL (4.60-5.80); Red Cell Distribution Width 11.5 % (11.0-16.0); White Blood Count 5.8 X10*3/uL (4.8-10.8)
[2021-10-12 11:12] LABS: Alanine Aminotransferase 16 U/L (0-40); Alkaline Phosphatase 79 U/L (39-117); Anion Gap 13 (12-20); Aspartate Amino Transferase 12 U/L (5-37); Bilirubin Total 0.5 mg/dL (0.0-1.0); Blood Urea Nitrogen 14 mg/dL (9-16); C Reactive Protein 0.29 mg/dL (< or = 0.50); Calcium 9.2 mg/dL (8.4-10.2); Carbon Dioxide 26 mmol/L (22-29); Chloride 103 mmol/L (96-108); Estimated Glomerular Filt Rate > 60; Glucose Random 312 mg/dL (60-115); Potassium 4.4 mmol/L (3.3-5.1); Sodium 138 mmol/L (135-145); Total Protein 7.3 g/dL (6.5-8.0); Uric Acid 5.7 mg/dL (3.4-7.0)
[2021-10-12 11:22] LABS: Erythrocyte Sedimentation Rate 5 MM/HR (0-15)
== END 2021-10-12 09:55 | disposition home or self-care (01) ==
LOC: HO.XRAY 09:54
PROVIDERS: Student in an Organized Health Care Education/Training Program; PCP Nurse Practitioner Family; Visit Provider Nurse Practitioner Family
DX: M1A.00X0 Idiopathic chronic gout, unspecified site, without tophus (tophi) (principal); M35.3 Polymyalgia rheumatica; M25.512 Pain in left shoulder; M79.642 Pain in left hand; M79.641 Pain in right hand
CPT/HCPCS: 36415; 73030; 73130; 80053; 84550; 85025; 85652; 86140

== ENCOUNTER 2021-10-30 07:35 | Outpatient (REF) | payer MEDICARE, MEDICAID, SELFPAY ==
[2021-10-30 10:35] LABS: Alanine Aminotransferase 20 U/L (0-40); Albumin Level 4.2 g/dL (3.5-5.0); Alkaline Phosphatase 78 U/L (39-117); Anion Gap 13 (12-20); Aspartate Amino Transferase 17 U/L (5-37); Blood Urea Nitrogen 13 mg/dL (9-16); Calcium 9.4 mg/dL (8.4-10.2); Carbon Dioxide 26 mmol/L (22-29); Chloride 105 mmol/L (96-108); Estimated Glomerular Filt Rate > 60; Glucose Random 152 mg/dL (60-115); Potassium 4.6 mmol/L (3.3-5.1); Sodium 139 mmol/L (135-145); Total Protein 7.5 g/dL (6.5-8.0)
[2021-10-30 10:41] LABS: Erythrocyte Sedimentation Rate 8 MM/HR (0-15)
[2021-10-30 10:59] LABS: Uric Acid 6.2 mg/dL (3.4-7.0)
== END 2021-10-30 07:36 | disposition home or self-care (01) ==
LOC: HO.LAB 07:35
PROVIDERS: PCP Internal Medicine; Visit Provider Nurse Practitioner Family
DX: M35.3 Polymyalgia rheumatica (principal); M1A.00X0 Idiopathic chronic gout, unspecified site, without tophus (tophi)
CPT/HCPCS: 36415; 80053; 84550; 85652; 86140; 99212

== ENCOUNTER 2022-01-01 08:06 | Outpatient (REF) | payer MEDICARE, MEDICAID, SELFPAY ==
[2022-01-01 09:52] LABS: C Reactive Protein 0.39 mg/dL (< or = 0.50)
[2022-01-01 10:25] LABS: Erythrocyte Sedimentation Rate 5 MM/HR (0-15)
== END 2022-01-01 08:07 | disposition home or self-care (01) ==
LOC: HO.LAB 08:06
PROVIDERS: PCP Internal Medicine; Visit Provider Nurse Practitioner Family
DX: M35.3 Polymyalgia rheumatica (principal); M1A.00X0 Idiopathic chronic gout, unspecified site, without tophus (tophi); Z79.52 Long term (current) use of systemic steroids
CPT/HCPCS: 36415; 85652; 86140; 99212

== ENCOUNTER 2022-02-19 10:41 | Outpatient (REF) | payer MEDICARE, MEDICAID, SELFPAY ==
--- NOTE | ~2022-02-19 | CT_ITS ---
EXAMINATION: CT CHEST WITHOUT CONTRAST CLINICAL INFORMATION: Pulmonary nodules. COMPARISON: Previous chest CT most recent November 2018 and chest x-ray November 2019. TECHNIQUE: Multidetector volumetric CT imaging of the chest was done. Axial MIP volume rendering provided. Sagittal and coronal reformatted images were obtained. This CT examination was performed using dose optimization techniques as appropriate, variously including the following: *Automated exposure control *Adjustment of mA and/or kV according to patient size (this includes techniques or standardized protocols for targeted exams where dose is matched to indication/reason for exam; i.e. extremities or head) *Use of iterative reconstruction technique DLP: 236 mGy-cm FINDINGS: LUNGS: There is a new 4 mm semisolid right lower lobe peripheral or subpleural nodule adjacent to the major fissure axial image 284 series 5. The calcified right pulmonary nodules and 4 mm noncalcified right lower lobe nodule adjacent to the major fissure probably representing a subpleural lymph node are stable. MEDIASTINUM: There are calcified right hilar and mediastinal lymph nodes likely related to old granulomatous disease. No enlarged lymph nodes are seen. The mediastinum is otherwise normal. PLEURA: There is no pleural effusion. No pleural mass or thickening. AXILLA: No lymphadenopathy. UPPER ABDOMEN: The liver is low in attenuation suggestive of fatty infiltration. OSSEOUS STRUCTURES: There are degenerative changes of the spine. CT/CT chest wo con IMPRESSION: New 4 mm semisolid peripheral or subpleural right lower lobe nodule adjacent to the major fissure. This may represent a subpleural lymph node. Otherwise calcified and noncalcified right pulmonary nodules are stable. Fleischner guidelines were followed.
== END 2022-02-19 10:42 | disposition home or self-care (01) ==
LOC: HO.CT 10:41
PROVIDERS: PCP Internal Medicine; Visit Provider Internal Medicine Pulmonary Disease
DX: R91.8 Other nonspecific abnormal finding of lung field (principal)
CPT/HCPCS: 71250

== ENCOUNTER 2022-03-08 09:28 | Outpatient (REF) | payer MEDICARE, MEDICAID, SELFPAY ==
[2022-03-08 10:00] LABS: MANUAL DIFF FLAG NO
[2022-03-08 11:10] LABS: Basophils Percent Auto 0.1 % (0-2); Eosinophils Absolute Auto 0.3 X10*3/uL (0.0-0.4); Eosinophils Percent Auto 3.6 % (0-4); Hematocrit 41.9 % (42.0-52.0); Hemoglobin 13.8 g/dl (14.0-18.0); Imm Gran Abs Auto 0.02 X10*3/uL (0.00-0.03); Imm Gran Pct Auto 0.3 % (0.0-0.4); Lymphocytes Absolute Auto 1.6 X10*3/uL (1.2-4.9); Lymphocytes Percent Auto 20.4 % (20-40); Mean Corpuscular HGB Conc 32.9 g/dl (31.0-36.0); Mean Corpuscular Hemoglobin 29.7 pg (27.0-33.0); Mean Corpuscular Volume 90.3 fL (80.0-98.0); Mean Platelet Volume 11.2 fL (9.4-12.4); Monocytes Absolute Auto 0.8 X10*3/uL (0.1-1.2); Neutrophils Percent Auto 65.6 % (45-73); Platelet Count 242 X10*3/uL (160-400); Red Blood Count 4.64 X10*6/uL (4.60-5.80); Red Cell Distribution Width 11.8 % (11.0-16.0); White Blood Count 7.7 X10*3/uL (4.8-10.8)
[2022-03-08 11:39] LABS: C Reactive Protein 1.51 mg/dL (< or = 0.50)
[2022-03-08 12:11] LABS: Erythrocyte Sedimentation Rate 7 MM/HR (0-15)
== END 2022-03-08 09:29 | disposition home or self-care (01) ==
LOC: HO.LAB 09:28
PROVIDERS: Nurse Practitioner Family; PCP Internal Medicine; Visit Provider Internal Medicine Pulmonary Disease
DX: J45.909 Unspecified asthma, uncomplicated (principal); Z91.09 Other allergy status, other than to drugs and biological substances; R91.8 Other nonspecific abnormal finding of lung field; M35.3 Polymyalgia rheumatica
CPT/HCPCS: 36415; 82785; 85025; 85652; 86003; 86140; 99212

== ENCOUNTER → 2022-03-09 08:54 | Outpatient (BNVA) | payer MEDICARE, MEDICAID, SELFPAY | PROVIDERS: PCP Internal Medicine; Visit Provider Nurse Practitioner Family | DX: M35.3 Polymyalgia rheumatica (principal); M1A.00X0 Idiopathic chronic gout, unspecified site, without tophus (tophi) | CPT/HCPCS: 99212 ==

== ENCOUNTER → 2022-05-06 08:47 | Outpatient (BNVA) | payer MEDICARE, MEDICAID, SELFPAY | PROVIDERS: PCP Internal Medicine; Visit Provider Nurse Practitioner Family | DX: M35.3 Polymyalgia rheumatica (principal); M1A.00X0 Idiopathic chronic gout, unspecified site, without tophus (tophi) | CPT/HCPCS: 99212 ==

== ENCOUNTER 2022-05-07 09:18 | Outpatient (REF) | payer MEDICARE, MEDICAID, SELFPAY ==
[2022-05-07 10:40] LABS: C Reactive Protein 0.34 mg/dL (< or = 0.50); Uric Acid 5.8 mg/dL (3.4-7.0)
[2022-05-07 10:49] LABS: Erythrocyte Sedimentation Rate 6 MM/HR (0-15)
== END 2022-05-07 09:19 | disposition home or self-care (01) ==
LOC: HO.LAB 09:18
PROVIDERS: Visit Provider Nurse Practitioner Family
DX: M35.3 Polymyalgia rheumatica (principal)
CPT/HCPCS: 36415; 84550; 85652; 86140

== ENCOUNTER → 2022-06-02 09:16 | Outpatient (BNVA) | payer MEDICARE, MEDICAID, SELFPAY | PROVIDERS: PCP Internal Medicine; Visit Provider Internal Medicine Pulmonary Disease | DX: J45.909 Unspecified asthma, uncomplicated (principal); Z91.09 Other allergy status, other than to drugs and biological substances; R91.8 Other nonspecific abnormal finding of lung field | CPT/HCPCS: 99212 ==

== ENCOUNTER 2022-06-23 08:34 | Outpatient (REF) | payer MEDICARE, MEDICAID, SELFPAY | END 2022-06-23 08:35 | disposition home or self-care (01) | LOC: HO.MDS 08:34 | PROVIDERS: Visit Provider Internal Medicine Pulmonary Disease | DX: J45.50 Severe persistent asthma, uncomplicated (principal); Z79.52 Long term (current) use of systemic steroids | CPT/HCPCS: 96372 ==

== ENCOUNTER 2022-07-07 09:06 | Outpatient (REF) | payer MEDICARE, MEDICAID, SELFPAY ==
[2022-07-07 11:37] LABS: C Reactive Protein 0.39 mg/dL (< or = 0.50)
[2022-07-07 12:33] LABS: Erythrocyte Sedimentation Rate 7 MM/HR (0-15)
== END 2022-07-07 09:07 | disposition home or self-care (01) ==
LOC: HO.LAB 09:06
PROVIDERS: PCP Nurse Practitioner Family; Visit Provider Nurse Practitioner Family
DX: M35.3 Polymyalgia rheumatica (principal)
CPT/HCPCS: 36415; 85652; 86140

== ENCOUNTER → 2022-07-15 07:50 | Outpatient (BNVA) | payer MEDICARE, MEDICAID, SELFPAY | PROVIDERS: PCP Internal Medicine; Visit Provider Nurse Practitioner Family | DX: M35.3 Polymyalgia rheumatica (principal); M1A.00X0 Idiopathic chronic gout, unspecified site, without tophus (tophi) | CPT/HCPCS: 99212 ==

== ENCOUNTER 2022-07-21 09:29 | Outpatient (REF) | payer MEDICARE, MEDICAID, SELFPAY | END 2022-07-21 09:30 | disposition home or self-care (01) | LOC: HO.MDS 09:29 | PROVIDERS: Visit Provider Internal Medicine Pulmonary Disease | DX: J45.50 Severe persistent asthma, uncomplicated (principal); M35.3 Polymyalgia rheumatica; Z79.52 Long term (current) use of systemic steroids | CPT/HCPCS: 96372; J2357 ==

== ENCOUNTER 2022-08-13 08:22 | Outpatient (REF) | payer MEDICARE, MEDICAID, SELFPAY ==
[2022-08-13 10:15] LABS: Erythrocyte Sedimentation Rate 6 MM/HR (0-15)
== END 2022-08-13 08:23 | disposition home or self-care (01) ==
LOC: HO.LAB 08:22
PROVIDERS: Visit Provider Nurse Practitioner Family
DX: M35.3 Polymyalgia rheumatica (principal)
CPT/HCPCS: 36415; 85652; 86140

== ENCOUNTER → 2022-08-16 09:42 | Outpatient (BNVA) | payer MEDICARE, MEDICAID, SELFPAY | PROVIDERS: PCP Internal Medicine; Visit Provider Nurse Practitioner Family | DX: M35.3 Polymyalgia rheumatica (principal); M1A.00X0 Idiopathic chronic gout, unspecified site, without tophus (tophi) | CPT/HCPCS: 99212 ==

== ENCOUNTER 2022-08-17 08:30 | Outpatient (REF) | payer MEDICARE, MEDICAID, SELFPAY | END 2022-08-17 08:31 | disposition home or self-care (01) | LOC: HO.MDS 08:30 | PROVIDERS: Visit Provider Internal Medicine Pulmonary Disease | DX: J45.50 Severe persistent asthma, uncomplicated (principal); Z79.52 Long term (current) use of systemic steroids | CPT/HCPCS: 96372 ==

== ENCOUNTER 2022-08-25 13:25 | Outpatient (REF) | payer MEDICARE, MEDICAID, SELFPAY ==
--- NOTE | ~2022-08-25 | CT_ITS ---
EXAMINATION: CT CHEST WITHOUT CONTRAST CLINICAL INFORMATION: Asthma. COMPARISON: None TECHNIQUE: Multidetector volumetric CT imaging of the chest was done. Axial MIP volume rendering provided. Sagittal and coronal reformatted images were obtained. This CT examination was performed using dose optimization techniques as appropriate, variously including the following: *Automated exposure control *Adjustment of mA and/or kV according to patient size (this includes techniques or standardized protocols for targeted exams where dose is matched to indication/reason for exam; i.e. extremities or head) *Use of iterative reconstruction technique DLP: 220 mGy-cm FINDINGS: ROVING TELLER: Unremarkable. LUNGS: The lungs are well expanded and clear of acute pneumonic process. There is 5 mm calcified nodule right upper lobe axial image 263/7, 5 mm nodule in right minor fissure axial image 324/7, previously measured 4 mm and a 3 mm nodule in the right major fissure axial image 371/7. No additional pulmonary nodule seen. There are mild atelectatic changes right middle lobe and lingula. MEDIASTINUM: Thyroid lobes are symmetric and normal. The central trachea and the bronchi are widely patent. The heart size and the great vessels are normal caliber. There are small shotty lymph nodes in the pretracheal space and aortic window. Small calcified lymph nodes are seen in the right subcarinal space. CORONARY ARTERY CALCIFICATION: Mild coronary artery calcifications are seen. PLEURA: There is no pleural effusion. No pleural mass or thickening. AXILLA: No lymphadenopathy. UPPER ABDOMEN: The liver is diffusely attenuated without any focal lesion. Spleen, pancreas and bilateral adrenal glands unremarkable. OSSEOUS STRUCTURES: No aggressive lytic or sclerotic process seen. There is mild ventral spondylosis mid dorsal and lumbar spine. CT/CT chest wo IV con IMPRESSION: 5 mm semisolid nodule right lower lobe adjacent to major fissure with minimal change since last study. There is a right upper lobe calcified granuloma and a calcified lymph node right subcarinal region likely old granulomatous disease. Fleischner guidelines were followed.
== END 2022-08-25 13:26 | disposition home or self-care (01) ==
LOC: HO.CT 13:25
PROVIDERS: Visit Provider Internal Medicine Pulmonary Disease
DX: J45.909 Unspecified asthma, uncomplicated (principal)
CPT/HCPCS: 71250

== ENCOUNTER → 2022-09-13 13:17 | Outpatient (BNVA) | payer MEDICARE, MEDICAID, SELFPAY | PROVIDERS: PCP Internal Medicine; Referring Provider Internal Medicine; Visit Provider Internal Medicine Cardiovascular Disease | DX: J45.909 Unspecified asthma, uncomplicated (principal); I10 Essential (primary) 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; R07.89 Other chest pain | CPT/HCPCS: 93005; 99212 ==

== ENCOUNTER 2022-09-14 08:12 | Outpatient (REF) | payer MEDICARE, MEDICAID, SELFPAY | END 2022-09-14 08:13 | disposition home or self-care (01) | LOC: HO.MDS 08:12 | PROVIDERS: Visit Provider Internal Medicine Pulmonary Disease | DX: J45.50 Severe persistent asthma, uncomplicated (principal); Z79.52 Long term (current) use of systemic steroids | CPT/HCPCS: 96372; J2357 ==

== ENCOUNTER → 2022-09-22 09:42 | Outpatient (BNVA) | payer MEDICARE, MEDICAID, SELFPAY | PROVIDERS: PCP Internal Medicine; Visit Provider Internal Medicine Pulmonary Disease | DX: J45.909 Unspecified asthma, uncomplicated (principal); Z91.09 Other allergy status, other than to drugs and biological substances; R91.8 Other nonspecific abnormal finding of lung field | CPT/HCPCS: 99212 ==

== ENCOUNTER 2022-09-30 09:41 | Outpatient (REF) | payer MEDICARE, MEDICAID, SELFPAY ==
[2022-09-30 10:30] LABS: Blood Urea Nitrogen 25 mg/dL (9-16); C Reactive Protein 0.76 mg/dL (< or = 0.50); Estimated Glomerular Filt Rate 58
[2022-09-30 11:12] LABS: Erythrocyte Sedimentation Rate 5 MM/HR (0-15)
== END 2022-09-30 09:42 | disposition home or self-care (01) ==
LOC: HO.LAB 09:41
PROVIDERS: PCP Nurse Practitioner Family; Visit Provider Nurse Practitioner Family
DX: M1A.00X0 Idiopathic chronic gout, unspecified site, without tophus (tophi) (principal); M35.3 Polymyalgia rheumatica
CPT/HCPCS: 36415; 82565; 84520; 84550; 85652; 86140

== ENCOUNTER 2022-10-12 07:36 | Outpatient (REF) | payer MEDICARE, MEDICAID, SELFPAY | END 2022-10-12 07:37 | disposition home or self-care (01) | LOC: HO.MDS 07:36 | PROVIDERS: Visit Provider Internal Medicine Pulmonary Disease | DX: J45.50 Severe persistent asthma, uncomplicated (principal); Z79.52 Long term (current) use of systemic steroids | CPT/HCPCS: 96372; J2357 ==

== ENCOUNTER → 2022-11-18 10:42 | Outpatient (BNVA) | payer MEDICARE, MEDICAID, SELFPAY | PROVIDERS: PCP Nurse Practitioner Family; Visit Provider Nurse Practitioner Family | DX: M35.3 Polymyalgia rheumatica (principal); M79.672 Pain in left foot; M1A.00X0 Idiopathic chronic gout, unspecified site, without tophus (tophi); Z79.52 Long term (current) use of systemic steroids | CPT/HCPCS: 99212 ==

== ENCOUNTER 2022-11-22 09:54 | Outpatient (REF) | payer MEDICARE, MEDICAID, SELFPAY ==
--- NOTE | ~2022-11-22 | XR_ITS ---
EXAMINATION: XR FOOT, LEFT CLINICAL INFORMATION: Left foot pain. COMPARISON: None TECHNIQUE: AP, lateral, and oblique views of the left foot. FINDINGS: The bones and soft tissues are normal. No fracture. Alignment is anatomic. Joint spaces are maintained. XR/XR foot LT 2V IMPRESSION: Unremarkable left foot.
[2022-11-22 11:05] LABS: C Reactive Protein 0.46 mg/dL (< or = 0.50)
[2022-11-22 12:13] LABS: Erythrocyte Sedimentation Rate 10 MM/HR (0-15)
== END 2022-11-22 09:55 | disposition home or self-care (01) ==
LOC: HO.LAB 09:54
PROVIDERS: Visit Provider Nurse Practitioner Family
DX: M35.3 Polymyalgia rheumatica (principal); M79.672 Pain in left foot
CPT/HCPCS: 36415; 73620; 85652; 86140

== ENCOUNTER → 2022-12-30 15:31 | Outpatient (BNVA) | payer MEDICARE, MEDICAID, SELFPAY | PROVIDERS: PCP Nurse Practitioner Family; Visit Provider Nurse Practitioner Family | DX: M35.3 Polymyalgia rheumatica (principal); M79.672 Pain in left foot; M1A.00X0 Idiopathic chronic gout, unspecified site, without tophus (tophi) | CPT/HCPCS: 99212 ==

== ENCOUNTER 2023-01-18 09:36 | Outpatient (REF) | payer MEDICARE, MEDICAID, SELFPAY ==
[2023-01-18 11:38] LABS: C Reactive Protein 1.04 mg/dL (< or = 0.50)
[2023-01-18 12:09] LABS: Erythrocyte Sedimentation Rate 13 MM/HR (0-15)
== END 2023-01-18 09:37 | disposition home or self-care (01) ==
LOC: HO.LAB 09:36
PROVIDERS: Visit Provider Nurse Practitioner Family
DX: M35.3 Polymyalgia rheumatica (principal)
CPT/HCPCS: 36415; 85652; 86140

== ENCOUNTER 2023-02-01 09:44 | Outpatient (REF) | payer MEDICARE, MEDICAID, SELFPAY ==
[2023-02-01 11:28] LABS: Erythrocyte Sedimentation Rate 7 MM/HR (0-15)
[2023-02-01 11:40] LABS: C Reactive Protein 0.98 mg/dL (< or = 0.50)
== END 2023-02-01 09:45 | disposition home or self-care (01) ==
LOC: HO.LAB 09:44
PROVIDERS: Visit Provider Nurse Practitioner Family
DX: M35.3 Polymyalgia rheumatica (principal)
CPT/HCPCS: 36415; 85652; 86140

== ENCOUNTER 2023-03-04 08:50 | Outpatient (REF) | payer MEDICARE, MEDICAID, SELFPAY ==
[2023-03-04 09:46] LABS: C Reactive Protein 3.64 mg/dL (< or = 0.50)
[2023-03-04 09:58] LABS: Erythrocyte Sedimentation Rate 7 MM/HR (0-15)
== END 2023-03-04 08:51 | disposition home or self-care (01) ==
LOC: HO.LAB 08:50
PROVIDERS: Visit Provider Nurse Practitioner Family
DX: M35.3 Polymyalgia rheumatica (principal)
CPT/HCPCS: 36415; 85652; 86140

== ENCOUNTER → 2023-03-07 11:45 | Outpatient (BNVA) | payer MEDICARE, MEDICAID, SELFPAY | PROVIDERS: PCP Nurse Practitioner Family; Visit Provider Nurse Practitioner Family | DX: M35.3 Polymyalgia rheumatica (principal); M1A.00X0 Idiopathic chronic gout, unspecified site, without tophus (tophi) | CPT/HCPCS: 99212 ==

== ENCOUNTER 2023-03-23 09:50 | Outpatient (REF) | payer MEDICARE, MEDICAID, SELFPAY ==
[2023-03-23 12:57] LABS: C Reactive Protein 0.27 mg/dL (< or = 0.50)
[2023-03-23 13:57] LABS: Erythrocyte Sedimentation Rate 5 MM/HR (0-15)
== END 2023-03-23 09:51 | disposition home or self-care (01) ==
LOC: HO.LAB 09:50
PROVIDERS: Absent Provider Nurse Practitioner Family; PCP Nurse Practitioner Family; Visit Provider Internal Medicine Pulmonary Disease
DX: M35.3 Polymyalgia rheumatica (principal); J45.909 Unspecified asthma, uncomplicated; R91.8 Other nonspecific abnormal finding of lung field; Z91.09 Other allergy status, other than to drugs and biological substances
CPT/HCPCS: 36415; 85652; 86140; 99212

== ENCOUNTER → 2023-04-06 13:36 | Outpatient (BNVA) | payer MEDICARE, MEDICAID, SELFPAY | PROVIDERS: PCP Nurse Practitioner Primary Care; Visit Provider Nurse Practitioner Family | DX: M35.3 Polymyalgia rheumatica (principal); M1A.00X0 Idiopathic chronic gout, unspecified site, without tophus (tophi); R07.89 Other chest pain; Z79.82 Long term (current) use of aspirin; Z79.52 Long term (current) use of systemic steroids; Z79.899 Other long term (current) drug therapy | CPT/HCPCS: 99212 ==

== ENCOUNTER 2023-04-07 09:08 | Outpatient (REF) | payer MEDICARE, MEDICAID, SELFPAY ==
[2023-04-07 09:52] LABS: C Reactive Protein 0.27 mg/dL (< or = 0.50)
[2023-04-07 10:22] LABS: Erythrocyte Sedimentation Rate 4 MM/HR (0-15)
== END 2023-04-07 09:09 | disposition home or self-care (01) ==
LOC: HO.LAB 09:08
PROVIDERS: Visit Provider Nurse Practitioner Family
DX: M35.3 Polymyalgia rheumatica (principal)
CPT/HCPCS: 36415; 85652; 86140

== ENCOUNTER → 2023-04-14 14:42 | Outpatient (BNVA) | payer MEDICARE, MEDICAID, SELFPAY | PROVIDERS: PCP Nurse Practitioner Primary Care; Visit Provider Internal Medicine Cardiovascular Disease | DX: R07.89 Other chest pain (principal) | CPT/HCPCS: 93005; 99212 ==

== ENCOUNTER → 2023-04-21 09:45 | Outpatient (REF) | payer MEDICARE, MEDICAID, SELFPAY ==
--- NOTE | 2023-04-21 09:47 | CA_ITS ---
Acquisition Time: 2023-04-21 10:50:43 Total Exercise Time: 00:07:33 Test Indications: CHEST PAIN Medications: SEE H Protocol: CHETAN Max HR: 106 BPM 69% of Pred: 153 BPM Max BP: 166/076 mmHG Max Work Load: 8.7 METS Exercise stress test with exercise 7 min 33 sec of Chetan protocol, achieving 69% MPHR, 8.7 METs, with fatigue and moderate shortness of breath and request to stop, no chest discomfort, without arrythmia, with blunted chronormotropic and normotensive response to exercise, without EKG changes meeting criteria for ischemia at achieved workload. Test reviewed with Dr Briceño. Referred By: Christiano Briceño Overread By: ABRAHAN JOHNSTON
== END ==
LOC: HO.CARD 09:45
PROVIDERS: PCP Nurse Practitioner Primary Care; Visit Provider Internal Medicine Cardiovascular Disease
DX: R07.89 Other chest pain (principal)
CPT/HCPCS: 93017

== ENCOUNTER → 2023-05-09 09:55 | Outpatient (BNVA) | payer MEDICARE, MEDICAID, SELFPAY | PROVIDERS: PCP Nurse Practitioner Primary Care; Visit Provider Internal Medicine Rheumatology | DX: M35.3 Polymyalgia rheumatica (principal); Z79.52 Long term (current) use of systemic steroids | CPT/HCPCS: 99212 ==

== ENCOUNTER 2023-06-01 14:01 | Emergency (ER) | payer MEDICARE, MEDICAID, SELFPAY ==
--- NOTE | ~2023-06-01 | XR_ITS ---
EXAMINATION: XR HAND, LEFT CLINICAL INFORMATION: Injury at base of thumb COMPARISON: Left hand 10/12/2021 TECHNIQUE: PA, lateral, and oblique views of the left hand. FINDINGS: Again seen is amputation of the distal phalanx of the third digit unchanged from prior. There is disruption of the soft tissues at the level of the first metacarpal phalangeal joint indicative of a soft tissue injury. No bony abnormality or fracture is seen. No radiopaque foreign body detected. No significant arthritic changes are seen. XR/XR hand LT 2V IMPRESSION: No evidence of an acute osseous injury. Soft tissue injury as described above.
--- NOTE | 2023-06-01 14:04 | ED.WOUNDLAC ---
HPI - Wound/Laceration General Chief Complaint: Wound/Laceration Stated Complaint: L Thumb Lac Time Seen by Provider: 06/01/23 15:35 Source: patient and family (patient's son) Mode of arrival: ambulatory Limitations: no limitations History of Present Illness HPI narrative: Patient is a 68 year old assigned male at with a history of GERD, diabetes, HTN, and asthma presenting to the emergency department today with a laceration to his left thumb. Patient states that he was using a hand saw and caught his left hand. Patient denies any dizziness, lightheadedness, abdominal pain, nausea, vomiting, fever, chills, blurry vision, double vision, loss of vision, chest pain, difficulty breathing, shortness of breath, back pain, night sweats, pain with urination, increased urinary frequency, increased urinary urgency, blood in his urine or stool, syncope or a near syncopal episode, bowel incontinence, bladder incontinence, bowel retention, bladder retention, or any other complaints at this time. Patient states that he had his last tetanus shot 2 years ago. Onset (ago): minute(s) Patient tetanus UTD: Yes Context: accidental Associated symptoms: none Treatments prior to arrival: bandage Related Data Home Medications Medication Instructions Recorded Confirmed acetaminophen 500 mg capsule 500 mg PO QID PRN 11/11/20 05/09/23 albuterol sulfate 90 mcg/actuation 2 puff inhalation QID 11/11/20 05/09/23 aerosol inhaler (ProAir HFA) amlodipine 10 mg tablet (Norvasc) 10 mg PO DAILY 11/11/20 05/09/23 aspirin 81 mg tablet,delayed 81 mg PO DAILY 11/11/20 05/09/23 release fluticasone propionate 50 1 spray intranasal DAILY 11/11/20 05/09/23 mcg/actuation nasal spray,suspension glyburide 5 mg tablet 5 mg PO DAILY 11/11/20 04/14/23 lisinopril 40 mg tablet 40 mg PO DAILY 11/11/20 05/09/23 metformin 1,000 mg tablet 1,000 mg PO DAILY 11/11/20 05/09/23 omeprazole 40 mg capsule,delayed 40 mg PO DAILY PRN 10/30/21 05/09/23 release atorvastatin 20 mg tablet 20 mg PO DAILY 09/13/22 05/09/23 dulaglutide 1.5 mg/0.5 mL 1.5 mg subcut QWEEK 09/13/22 05/09/23 subcutaneous pen injector (Trulicity) empagliflozin 25 mg tablet 25 mg PO QAM 09/13/22 05/09/23 (Jardiance) glipizide 5 mg tablet 5 mg PO DAILY 09/13/22 05/09/23 Previous Rx's Medication Instructions Recorded budesonide-formoterol HFA 160 2 puff inhalation BID 30 days #1 ea 03/23/23 mcg-4.5 mcg/actuation aerosol inhaler (Symbicort) prednisone 1 mg tablet 1 mg PO Q OTHER DAY #15 tabs 05/09/23 cephalexin 500 mg capsule 500 mg PO Q6H 7 days #28 caps 06/01/23 doxycycline hyclate 100 mg tablet 100 mg PO BID 7 days #14 tabs 06/01/23 Allergies Allergy/AdvReac Type Severity Reaction Status Date / Time Penicillins [PENICILLINS] Allergy Intermediate RASH Verified 05/09/23 10:39 Review of Systems Constitutional: Constitutional: Reports no additional constitutional complaints, Denies chills, Denies fever(s) and Denies night sweats Eyes: Eyes: Reports no additional eye complaints, Denies blurry vision, Denies change in vision, Denies diplopia, Denies eye discharge, Denies loss of vision and Denies eye pain ENT: Denies dizziness Cardiovascular: Cardiovascular: Reports no additional cardiovascular complaints, Denies chest pain, Denies lightheadedness, Denies Loss of Consciousness and Denies dyspnea Respiratory: Respiratory: Reports no additional respiratory complaints and Denies dyspnea Gastrointestinal: Gastrointestinal: Reports no additional gastrointestinal complaints, Denies abdominal pain, Denies melena, Denies hematochezia, Denies change in bowel habits and Denies change in stool character Genitourinary: Genitourinary: Reports no additional male genitourinary complaints, Denies hematuria, Denies oliguria, Denies difficulty urinating, Denies dysuria, Denies urinary frequency, Denies urinary hesitancy, Denies urinary incontinence and Denies urinary urgency Musculoskeletal: Musculoskeletal: Reports no additional musculoskeletal complaints, Denies numbness and Denies tingling Comments: left hand laceration Neurologic: Denies dizziness, Denies loss of vision, Denies numbness and Denies tingling Psychiatric: Psychiatric: Reports no additional psychiatric complaints Endocrine: Endocrine: Reports no additional endocrine complaints Hematologic/Lymphatic: Hematologic/Lymphatic: Reports no additional hematologic/lymphatic complaints Allergic/Immunologic: Allergic/Immunologic: Reports no additional allergic/immunologic complaints [facility] Past Medical History Attestation statement: The following information was validated with the patient. 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 Polymyalgia rheumatica Pulmonary nodules Surgical History Hx of circumcision Hx of colonoscopy Status post amputation of finger Family History Family History Mother Myocardial infarction, Onset Age: 58 Social History Social History Household Members: Spouse Household Members Other:: son Housing: House Alcohol intake: current Alcohol intake frequency: a few times a week Alcohol type: beer Patient Tobacco Use Status: Never used Tobacco Smoked in Last 30 Days: No Use of substances other than those prescribed or required for medical reasons: No Advance Directives: No Advance Directives Information Provided: Yes Current occupational status: retired Physical Exam Vital Signs: Vital Signs: Last Vital Signs Pulse 67 06/01/23 14:06 Resp 20 06/01/23 14:06 BP 90/58 L 06/01/23 14:06 Pulse Ox 98 06/01/23 14:06 O2 Del Method Room Air 06/01/23 14:06 BMI result Body Mass Index 33.7 Const: General: cooperative, no acute distress, alert and awake Nutritional Appearance: well nourished Orientation/consciousness: patient oriented x3 Limitations: no limitations HEENT: Head: Yes normal to inspection and Yes atraumatic Ears: hearing grossly normal bilaterally and external ears normal General nose exam: Normal external nose present, no nasal discharge noted and no epistaxis Face and sinus: Yes normal facial exam, No abrasion and No laceration Mouth: Normal oral and palatal mucosa present, no drooling and no muffled voice Eyes: General: appearance normal, both eyes and all related structures Periorbital: periorbital findings normal Eyelids: Yes eyelids normal Conjunctivae: conjunctivae normal Pupils: Equal, round and reactive pupils present EOM: EOMs intact bilaterally Neck: Neck: Yes normal visual inspection, Yes full ROM and Yes no lymphadenopathy Chest: Chest palpation & inspection: normal inspection of the chest Resp: Effort & Inspection: normal respiratory effort and able to speak in complete sentences GI: Inspection: Yes normal to inspection Neuro: General: patient oriented x3 and moves all extremities Cranial nerves: Yes Equal, round and reactive pupils present Cognition (Neuro): normal cognition Motor exam (neuro): 5/5 motor strength present throughout Sensory Exam: Normal double simultaneous stimulation for sensation Coordination: [id number] test normal Extrem: Other: patient has a partial amputation of the left 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 Patient has a 3cm laceration to the left palm at the base of the thumb with jagged edges, no active bleeding. General: Yes full ROM (able to touch left thumb to all left finger tips) and Yes capillary refill normal Psych: Appearance: grossly normal Mental Status: mental status grossly normal Affect: normal affect Attitude: cooperative Thought process: Normal thought process present Thought content: Normal thought content present Insight: Good insight present (Psych) Course Course Course Narrative: RME - 68 yo right hand dominant male with history of DM, PMR, HTN, gout who presents to the ER for evaluation of a left hand laceration sustained on a table saw just prior to arrival. he got lightheaded and dizzy after he cut himself. slight oozing on arrival to the ER with 1.5 inch lac that will require suture repair. TDAP UTD in last 2 years Plan: lac repair Medications Administered Discontinued Medications Generic Name Dose Route Start Last Admin Trade Name Freq PRN Reason Stop Dose Admin Lidocaine HCl 10 ml 06/01/23 16:15 06/01/23 16:41 Lidocaine Hcl 1 % Mpf 5 Ml Vial SUBCUT 06/01/23 16:16 10 ml ONCE ONE Administration Medical Decision Making Medical Decision Making [facility] Narrative: Patient is a 68 year old assigned male at with a history of HTN, gout, asthma, GERD, and diabetes presenting to the emergency department today with a laceration to his left palm. Patient's physical exam was as noted in the physical exam portion of this chart. Patient's left hand x-ray showed no acute process. I explained my physical exam findings as well as all test results to the patient and the patient's son. I answered all questions asked by the patient and the patient's son. Patient's left hand was soaked in an idoine and saline mixture. Patient's left hand laceration was repaired with 3 5-0 prolene sutures and dermabond, without incident. Patient's PMS was intact prior to and after laceration repair. I stressed the importance of the patient not getting the repaired area wet for at LEAST 7 days. I stressed the importance of the patient having his sutures removed in 7-10 days. I stressed the importance of the patient performing daily wound checks and dressing changes. Given the organic nature of the injury and his history of diabetes, patient will be given antibiotics. Patient has a known rash to N however, has not had any issues with cephalsporins before and is willing to take one. I stressed the importance of the patient taking his medication as prescribed. I stressed the importance of the patient following up with his primary care provider. I stressed the importance of the patient returning to the emergency department immediately if his symptoms were to worsen or if he were to develop any dizziness, shortness of breath, difficulty breathing, chest pain, blurry vision, loss of vision, nausea, vomiting, abdominal pain, fever, chills, back pain, or any other complaints. Patient [and the patient's] verbalized agreement and understanding with this treatment plan and discharge. Differential Diagnosis Differential Diagnoses: The differential diagnosis associated with the presentation includes Laceration Abrasion Avulsion Independent Interpretation I performed an independent interpretation of an: Plain X-Ray Interpretation: My interpretation is in agreement with the radiologist's impression of this imaging study. EXAMINATION: XR HAND, LEFT CLINICAL INFORMATION: Injury at base of thumb? COMPARISON: Left hand 10/12/2021? TECHNIQUE: PA, lateral, and oblique views of the left hand. FINDINGS: Again seen is amputation of the distal phalanx of the third digit unchanged from prior. There is disruption of the soft tissues at the level of the first metacarpal phalangeal joint indicative of a soft tissue injury. No bony abnormality or fracture is seen. No radiopaque foreign body detected. No significant arthritic changes are seen. XR/XR hand LT 2V IMPRESSION: No evidence of an acute osseous injury. Soft tissue injury as described above. Dictated By: Martin Brown MD Signed By: Electronically signed by Martin Brown MD 06/01/23 [id number] Radiology Impression Discussion of test interpretation with radiology: I have reviewed the radiologist's reading. Independent Historian Clinical information obtained from an independent historian. History obtained from or confirmed by: Other (patient's son provided additional history and confirmed the history provided by the patient. ) Prescription Management I considered prescription management with: Antibiotic (given the organic nature of the injury (saw + wood) and his history of diabetes, patient prescribed antibiotics for this injury.) Chronic Conditions Patient?s care impacted by: Diabetes Procedures Laceration Laceration 1: Site: hand Side (If applicable): left Size (cm): 3 Description: irregular Depth: simple, single layer Local Anesthetic: lidocaine 1% Amount of anesthesia used (mL): 5 Pre-repair: wound explored, irrigated extensively and deep structures intact Skin layer closed with: other (prolene and dermabond) Size (cm): 5-0 and other Number of sutures: 3 Technique: simple, interrupted and other (and dermabond) Discharge Plan Discharge Clinical Impression: Laceration of hand Patient Disposition: Home, Self-Care Instructions: Care For Your Stitches (DC), Laceration (DC), Skin Adhesive Care (ED) Additional Instructions: Take your antibiotics as prescribed. Have your sutures removed in 7-10 days. The skin glue will dissolve on it's own in 7-10 days. Do NOT get the affected area wet. Perform daily wound checks and dressing changes. Follow up with your primary care provider. Return to the emergency department immediately if your symptoms worsen or if you develop any dizziness, shortness of breath, difficulty breathing, chest pain, blurry vision, loss of vision, nausea, vomiting, abdominal pain, fever, chills, back pain, or any other complaints. Prescriptions: New cephalexin 500 mg capsule 500 mg PO Q6H 7 Days Qty: 28 0RF doxycycline hyclate 100 mg tablet 100 mg PO BID 7 Days Qty: 14 0RF No Action amlodipine [Norvasc] 10 mg tablet 10 mg PO DAILY aspirin 81 mg tablet,delayed release (DR/EC) 81 mg PO DAILY fluticasone propionate 50 mcg/actuation spray,suspension 1 spray intranasal DAILY Rx Instructions: administer into each nostril albuterol sulfate [ProAir HFA] 90 mcg/actuation HFA aerosol inhaler 2 puff inhalation QID glyburide 5 mg tablet 5 mg PO DAILY lisinopril 40 mg tablet 40 mg PO DAILY metformin 1,000 mg tablet 1,000 mg PO DAILY acetaminophen 500 mg capsule 500 mg PO QID PRN Trulicity 1.5 mg/0.5 mL pen injector 1.5 mg subcut QWEEK glipizide 5 mg tablet 5 mg PO DAILY Jardiance 25 mg tablet 25 mg PO QAM atorvastatin 20 mg tablet 20 mg PO DAILY omeprazole 40 mg capsule,delayed release(DR/EC) 40 mg PO DAILY PRN budesonide-formoterol [Symbicort] 160-4.5 mcg/actuation HFA aerosol inhaler 2 puff inhalation BID 30 Days Qty: 1 6RF prednisone 1 mg tablet 1 mg PO Q OTHER DAY Qty: 15 1RF Referrals: [facility] [Primary Care Provider] - Interventions: ED Discharge Assessment Last Done: 06/01/23 16:54 Discharge Date/Time: 06/01/23 16:55 Print Language: Slovenian
[2023-06-01 14:06] VITALS: BP 90/58; PULSE 67; RESP 20; O2SAT 98; BMI 33.7
[2023-06-01] MEDS: Lidocaine HCl 1 % MPF 5 ML VIAL 10 ML SUBCUT (16:41)
== END 2023-06-01 16:55 | disposition home or self-care (01) ==
PROVIDERS: Emergency Provider Emergency Medicine
DX: S61.012A Laceration without foreign body of left thumb without damage to nail, initial encounter (principal); W27.0XXA Contact with workbench tool, initial encounter; I10 Essential (primary) 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; Y93.9 Activity, unspecified; Y92.9 Unspecified place or not applicable; Y99.9 Unspecified external cause status
CPT/HCPCS: 12002; 73120; 99284

== ENCOUNTER 2023-08-08 08:46 | Outpatient (AMB) | payer MEDICARE, MEDICAID, SELFPAY ==
--- NOTE | 2023-08-08 08:47 | MHC.OFFVIS ---
Intake Vital Signs 08/08/23 09:05 Height 5 ft 7 in Weight 228 lb 2.855 oz BMI 35.7 BP 132/64 Blood Pressure Location Rt brachial Position Sitting Pulse 62 Pulse Source Pulse Oximeter Temp 97.5 F Temp Source Skin Pulse Oximetry (%) 96 Oxygen Delivery Method Room Air Intake Visit Reasons: PMR Intake Note: Patient presents today for PMR follow up. Door Liner Required: Yes Door Liner Language: Fiberglass Laminator Name: Megan [id number] Information Interpreted: clinical only Accompanied by: Spouse Allergies Penicillins [PENICILLINS] Allergy (Intermediate, Verified 08/08/23 09:14) RASH Medication List - Last Reviewed 08/08/23 by BRYSON Wallace acetaminophen 500 mg PO QID PRN albuterol sulfate 90 mcg/actuation (ProAir HFA) 2 puffs inhalation QID amlodipine (Norvasc) 10 mg PO DAILY aspirin 81 mg PO DAILY aspirin 1 tab PO DAILY atorvastatin 20 mg PO DAILY budesonide-formoterol 160-4.5 mcg/actuation (Symbicort) 2 puffs inhalation BID 30 days dulaglutide (Trulicity) 1.5 mg subcut QWEEK empagliflozin (Jardiance) 25 mg PO QAM fluticasone propionate 50 mcg/actuation 1 spray intranasal DAILY glipizide ER 5 mg PO QAM glyburide 5 mg PO DAILY hydroxyzine HCl 25 mg PO BEDTIME PRN lisinopril 40 mg PO DAILY metformin 1,000 mg PO DAILY naproxen 500 mg PO BID omeprazole 40 mg PO DAILY PRN prednisone 1 mg PO Q OTHER DAY HPI HPI Comments History of Present Illness Details The patient returns today with his for evaluation of his PMR. We utilized the [employer] translating service to facilitate the visit. He remains on prednisone 1 mg every other day. He still indicates he has some pain in his legs on days that he does not take the prednisone. There is no headache, jaw claudication or visual disturbance. Takes occasional acetaminophen for pains as well. Diabetes control seems to be good. 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 Polymyalgia rheumatica Pulmonary nodules Surgical History Hx of circumcision Status post amputation of finger Hx of colonoscopy Family History Mother Myocardial infarction, Onset Age: 58 Social History (Updated 08/08/23 @ 09:15 by BRYSON Wallace) Household Members: Spouse Household Members Other:: son Housing: House Alcohol intake: current Alcohol intake frequency: a few times a week Alcohol type: beer Patient Tobacco Use Status: Former Tobacco user Current occupational status: retired Review of Systems Const Details: Negative for appetite change, weight change, fever, chills, malaise and fatigue Eyes Details: Negative for vision change, dry eyes,headaches and dizziness Card Details: Negative chest pain, edema and syncope Resp Details: Negative for SOB, cough and wheezing GI Details: Negative indigestion/heartburn, nausea, abdominal pain, bowel changes, diarrhea, constipation and bloody stool. Endo Details: Negative for polyuria and polydypsia Physical Exam Vital Signs: Last Vital Signs Temp 97.5 F 08/08/23 09:05 Pulse 62 08/08/23 09:05 BP 132/64 08/08/23 09:05 Pulse Ox 96 08/08/23 09:05 Oxygen Delivery Method Room Air 08/08/23 09:05 BMI result Body Mass Index 35.7 APPEARANCE: Patient in no acute distress EYES no redness, pupils equal and reactive to light, eyelids normal; no temporal artery tenderness, redness or swelling. EXTREMITIES: No edema, no calf tenderness, normal peripheral pulses. JOINT EXAM: ?? Cervical Spine: Full range of motion without pain; no tenderness. Thoracic Spine:? No tenderness on palpation. Lumbar Spine:? Alignment normal.? Full range of motion without pain, no tenderness to palpation. Hands:? LEFT: Normal pain-free range of motion without tenderness, soft tissue swelling, increased warmth or erythema. Able to make a full fist and has a good yard stocker strength. Loss of DIP 3rd digit (trauma) ? RIGHT: Normal pain-free range of motion without tenderness, soft tissue swelling, increased warmth or erythema. Able to make a full fist and has a good yard stocker strength. Heberdens node 3rd digit. Wrists:? Normal pain-free range of motion without tenderness, swelling, increased warmth or erythema. Elbows: Normal pain-free range of motion without tenderness, swelling, increased warmth or erythema. Shoulders:?? LEFT: Full range of motion with slight pain with full abduction. Slight trapezial and anterior tenderness. No swelling, weakness, erythema or warmth. ? RIGHT: Full range of motion with no pain. No tenderness, swelling, weakness, erythema or warmth. The Hips:? Full range of motion without pain. Hip bursa:? No tenderness. Knees:? Normal pain-free range of motion without tenderness, swelling, increased warmth or erythema.? There is no effusion or crepitation Results Reviewed Results Reviewed: Laboratory Tests 04/07/23 09:15 ESR 4 C-Reactive Protein 0.27 Assessment & Plan Assessment & Plan (1) Polymyalgia rheumatica: Comment: January 2020-started on 15mg prednisone Self stopped prednisone October 2021-restarted 7 mg prednisone now tapered off, August 2022 Prednisone restarted September 2022. Code(s): M35.3 - Polymyalgia rheumatica Plan PMR with still apparently some symptoms on days that he does not take the prednisone. We will recheck his inflammatory markers but they have been low for quite a while. There are no signs of giant cell arteritis. ESR and CRP are ordered for today. We will get back to him with recommendations on the prednisone dose when blood work returns. A follow-up at 3-4 months would be reasonable. Coding Level of Care Code Est Pt Level 3 (12353) Diagnoses Polymyalgia rheumatica M35.3
[2023-08-08 09:05] VITALS: BP 132/64; PULSE 62; TEMP 36.4; O2SAT 96; BMI 35.7
== END 2023-08-08 09:09 | disposition home or self-care (01) ==
PROVIDERS: PCP Nurse Practitioner Primary Care; Visit Provider Internal Medicine Rheumatology
DX: M35.3 Polymyalgia rheumatica (principal)
CPT/HCPCS: 99213

== ENCOUNTER → 2023-08-08 08:46 | Outpatient (BNVA) | payer MEDICARE, MEDICAID, SELFPAY | PROVIDERS: PCP Nurse Practitioner Primary Care; Visit Provider Internal Medicine Rheumatology | DX: M35.3 Polymyalgia rheumatica (principal) | CPT/HCPCS: 36415; 85652; 86140; 99212 ==

== ENCOUNTER 2023-08-08 09:13 | Outpatient (REF) | payer MEDICAID, SELFPAY ==
[2023-08-08 11:23] LABS: C Reactive Protein 0.33 mg/dL (< or = 0.50)
[2023-08-08 11:59] LABS: Erythrocyte Sedimentation Rate 6 MM/HR (0-15)
== END 2023-08-08 09:14 | disposition home or self-care (01) ==
LOC: HO.10HDL 09:13
PROVIDERS: Visit Provider Internal Medicine Rheumatology
DX: M35.3 Polymyalgia rheumatica (principal)
CPT/HCPCS: 36415; 85652; 86140

== ENCOUNTER 2023-08-11 12:52 | Outpatient (REF) | payer MEDICARE, MEDICAID, SELFPAY ==
--- NOTE | ~2023-08-11 | CT_ITS ---
EXAMINATION: CT CHEST WITHOUT CONTRAST CLINICAL INFORMATION: Other nonspecific abnormal finding of lung field. Follow-up pulmonary nodules COMPARISON: Previous chest CT scans most recent August 2022 TECHNIQUE: Multidetector volumetric CT imaging of the chest was done. Axial MIP volume rendering provided. Sagittal and coronal reformatted images were obtained. This CT examination was performed using dose optimization techniques as appropriate, variously including the following: *Automated exposure control *Adjustment of mA and/or kV according to patient size (this includes techniques or standardized protocols for targeted exams where dose is matched to indication/reason for exam; i.e. extremities or head) *Use of iterative reconstruction technique DLP: 227 mGy-cm FINDINGS: ORTHOPAEDIC DOCTOR: Right lung nodule LUNGS: Stable 5 mm calcified right upper lobe nodule axial image 254 series 5. Stable 4 mm peripheral or subpleural noncalcified right lower lobe nodule axial image 320 series 5 probably representing a pleural lymph node. Stable 6 mm calcified right middle lobe nodule axial image 368 series 5. Scarring or subsegmental atelectasis In the right middle lobe and lingula, stable. No new pulmonary findings. MEDIASTINUM: Calcified right hilar lymph and subcarinal mediastinal nodes. Small noncalcified paratracheal mediastinal lymph nodes. These are stable. No enlarged lymph nodes. Normal heart size. No pericardial effusion. Mild coronary artery calcification. Normal caliber thoracic aorta. CORONARY ARTERY CALCIFICATION: Mild PLEURA: There is no pleural effusion. No pleural mass or thickening. AXILLA: No lymphadenopathy. UPPER ABDOMEN: Fatty liver. OSSEOUS STRUCTURES: Degenerative changes of the spine. CT/CT chest wo IV con IMPRESSION: Old granulomatous disease. Stable calcified and noncalcified pulmonary nodules. According to Fleischner criteria no additional chest CT follow-up recommended. Mild coronary artery calcification. Fatty infiltration of the liver. Fleischner guidelines were followed.
== END 2023-08-11 12:53 | disposition home or self-care (01) ==
LOC: HO.CT 12:52
PROVIDERS: PCP Nurse Practitioner Primary Care; Visit Provider Internal Medicine Pulmonary Disease
DX: R91.8 Other nonspecific abnormal finding of lung field (principal)
CPT/HCPCS: 71250

== ENCOUNTER 2023-08-29 14:44 | Outpatient (AMB) | payer MEDICARE, MEDICAID, SELFPAY ==
--- NOTE | 2023-08-29 15:05 | A.OFFVIS_ITS ---
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 Required: No Cultural Centre Manager: Cultural Centre Manager Present Accompanied by: Spouse Allergies Penicillins [PENICILLINS] Allergy (Intermediate, Verified 08/08/23 09:14) RASH Medication List - Last Reconciled 08/29/23 by Christiano Briceño MD acetaminophen 500 mg PO QID PRN albuterol sulfate 90 mcg/actuation (ProAir HFA) 2 puffs inhalation QID amlodipine (Norvasc) 10 mg PO DAILY aspirin 1 tab PO DAILY atorvastatin 20 mg PO DAILY budesonide-formoterol 160-4.5 mcg/actuation (Symbicort) 2 puffs inhalation BID 30 days dulaglutide (Trulicity) 1.5 mg subcut QWEEK empagliflozin (Jardiance) 25 mg PO QAM fluticasone propionate 50 mcg/actuation 1 spray intranasal DAILY glipizide ER 5 mg PO QAM hydroxyzine HCl 25 mg PO BEDTIME PRN lisinopril 40 mg PO DAILY metformin 1,000 mg PO DAILY naproxen 500 mg PO BID omeprazole 40 mg PO DAILY PRN prednisone 1 mg PO Q OTHER DAY HPI HPI Comments History of Present Illness Details Pleasant 67-year-old gentleman here for follow-up. He has background 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. He has history of asthma and is following with pulmonology. Previously had cardiac catheterization performed for chest discomfort which did not reveal any coronary disease. He is saying when he is exerting he gets chest discomfort and shortness of breath. He is describing a tightness in his chest. Blood pressure control is good currently. 08/29/23: He returns for follow-up. He was referred for exercise stress tests. He was able to exercise for 7 minutes 33 seconds on Neo protocol without any significant chest discomfort. He has some shortness of breath and fatigue. His blood pressure response was good but heart rate rise was blunted. He returns for follow-up and is complaining that off and on he gets right-sided chest pain. He is also following with pulmonology. These symptoms do not happen with activity. He during stress test he did not have any chest discom fort. 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 Polymyalgia rheumatica Gastroesophageal reflux disease Asthma Gout History of high cholesterol Laceration of right hand involving extensor tendon HTN (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) Diabetes Pulmonary nodules Asthma-COPD overlap syndrome Dyspnea on exertion Surgical History Hx of circumcision Status post amputation of finger Hx of colonoscopy Family History Mother Myocardial infarction, Onset Age: 58 Social History (Updated 08/08/23 @ 09:15 by BRYSON Wallace) Household Members: Spouse Household Members Other:: son Housing: House Alcohol intake: current Alcohol intake frequency: a few times a week Alcohol type: beer Patient Tobacco Use Status: Former Tobacco user Current occupational status: retired Review of Systems Const Denies chills, Denies fatigue, Denies fever(s), Denies frequent falls, Denies weakness, Denies weight gain and Denies weight loss ENT Denies dizziness Card Denies chest pain, Denies leg edema, Denies lightheadedness, Denies palpitations , Denies dyspnea, Denies dyspnea on exertion, Denies orthopnea and Denies other (loss of consciousness) Resp Denies cough, Denies dyspnea and Denies dyspnea on exertion GI Denies hematochezia and Denies change in stool character Musc Denies abnormal gait, Denies muscle weakness, Denies numbness, Denies radiating pain into limb and Denies tingling Neuro Denies abnormal gait, Denies dizziness, Denies frequent falls, Denies numbness, Denies tingling and Denies weakness Endo Denies fatigue and Denies palpitations Physical Exam Vital Signs: Last Vital Signs Pulse 90 08/29/23 15:06 BP 108/62 08/29/23 15:06 BMI result Body Mass Index 34.2 GENERAL APPEARANCE: in no acute distress, well developed, well nourished. NECK/THYROID: no carotid bruit, no jugular venous distention. SKIN: no suspicious lesions, warm and dry. HEART: no murmurs, regular rate and rhythm, S1, S2 normal. LUNGS: clear to auscultation bilaterally. ABDOMEN: normal, bowel sounds present, soft, nontender, nondistended. EXTREMITIES: no clubbing, cyanosis, or edema. PERIPHERAL PULSES: equal. NEUROLOGIC: nonfocal, alert and oriented. PSYCH: mood/affect full range. Assessment & Plan Assessment & Plan (1) HTN (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): Code(s): I10 - Essential (primary) 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 (2) Chest discomfort: Code(s): R07.89 - Other chest pain Plan Pleasant 68-year-old gentleman who is here for follow-up. He previously had cardiac catheterization performed. No coronary disease was noticed. On last visit he was complaining of chest discomfort. Was referred for exercise stress test. During exercise he had dyspnea but no chest discomfort. No dynamic EKG changes were noticed. He was able to exercise to 8.7 metabolic equivalents. On follow-up he is complaining of right-sided chest discomfort off and on. Clearly not exertional and as mentioned he did not have any exercise related symptoms. I have reassured him that this is unlikely to be a cardiac symptoms. He is following with pulmonology. If he does not find a cause then he should see Gastroenterology. He will see us back in 1 year. Thank you for allowing me to participate in the care of your patient. Please feel free to contact me if you have any questions. Coding Level of Care Code Est Pt Level 3 (07860) Diagnoses HTN (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) I10 Chest discomfort R07.89
[2023-08-29 15:06] VITALS: BP 108/62; PULSE 90; BMI 34.2
== END 2023-08-29 15:30 | disposition home or self-care (01) ==
PROVIDERS: PCP Nurse Practitioner Primary Care; Visit Provider Internal Medicine Cardiovascular Disease
DX: I10 Essential (primary) 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 (principal); R07.89 Other chest pain
CPT/HCPCS: 99213

== ENCOUNTER → 2023-08-29 14:44 | Outpatient (BNVA) | payer MEDICARE, MEDICAID, SELFPAY | PROVIDERS: PCP Nurse Practitioner Primary Care; Visit Provider Internal Medicine Cardiovascular Disease | DX: R07.89 Other chest pain (principal); I10 Essential (primary) 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 | CPT/HCPCS: 99212 ==

== ENCOUNTER 2023-08-30 11:24 | Outpatient (AMB) | payer MEDICARE, MEDICAID, SELFPAY ==
[2023-08-30 11:25] VITALS: BP 111/64; PULSE 77; O2SAT 96; BMI 35.0
--- NOTE | 2023-08-30 11:25 | MHC.OFFVIS ---
Intake Vital Signs 08/30/23 11:25 Height 5 ft 7 in Weight 223 lb 12.307 oz BMI 35.0 BP 111/64 Blood Pressure Location Rt brachial Position Sitting Pulse 77 Pulse Source Doppler Pulse Oximetry (%) 96 Oxygen Delivery Method Room Air Intake Visit Reasons: Asthma Allergies Penicillins [PENICILLINS] Allergy (Intermediate, Verified 08/30/23 11:26) RASH HPI Asthma HPI Details 68-year-old gentleman, former under 20 pack-year smoker, quit 2003 followed for pulmonary nodules, asthma, environmental allergies, and dyspnea on exertion after walking 2-3 blocks.? He tried Xolair, however did not receive significant symptomatic benefit. At the last office visit his been switched to Symbicort and now his symptoms are well controlled. He denies any recent exacerbations. He completed his follow-up CT chest that showed old granulomatous nodules. 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 Polymyalgia rheumatica Gastroesophageal reflux disease Asthma Gout History of high cholesterol Laceration of right hand involving extensor tendon HTN (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) Diabetes Pulmonary nodules Asthma-COPD overlap syndrome Dyspnea on exertion Surgical History Hx of circumcision Status post amputation of finger Hx of colonoscopy Family History Mother Myocardial infarction, Onset Age: 58 Social History (Updated 08/30/23 @ 11:27 by Deidra Gutierrez Edmundo) Household Members: Spouse Household Members Other:: son Housing: House Alcohol intake: current Alcohol intake frequency: a few times a week Alcohol type: beer Patient Tobacco Use Status: Former Tobacco user Current occupational status: retired Review of Systems Const Denies daytime sleepiness, Denies excessive sweating, Denies fatigue, Denies fever(s), Denies lethargy, Denies malaise, Denies night sweats, Denies snoring and Denies weight loss Eyes Denies blurry vision and Denies itchy eyes ENT Denies nasal congestion, Denies post nasal drip, Denies sinus pain, Denies sinus pressure and Denies other ( Thrush) Card Denies chest pain, Denies pedal edema, Denies dyspnea, Denies orthopnea and Denies paroxysmal nocturnal dyspnea Resp Denies cough, Denies hemoptysis, Denies excessive phlegm production, Denies dyspnea, Denies snoring and Denies wheezing GI Denies abdominal pain and Denies heartburn Musc Denies myalgias, Denies arthralgias and Denies joint swelling Skin/Breast Denies rash Neuro Denies memory loss and Denies seizure-like activity Psych Denies abnormal sleep pattern, Denies anxiety and Denies memory loss Endo Denies excessive sweating, Denies fatigue and Denies heat intolerance Zoltan/Lymph Denies easy bruising Aller/Immun Denies itchy eyes, Denies seasonal rhinorrhea and Denies wheezing Physical Exam Vital Signs: Last Vital Signs Pulse 77 08/30/23 11:25 BP 111/64 08/30/23 11:25 Pulse Ox 96 08/30/23 11:25 Oxygen Delivery Method Room Air 08/30/23 11:25 BMI result Body Mass Index 35.0 Const General: no acute distress and alert Nutritional Appearance: not obese Orientation/consciousness: Other orientation findings ( oriented) HEENT Head: Yes atraumatic Eyes General: appearance normal, both eyes and all related structures Sclerae: sclerae normal EOM: EOMs intact bilaterally Neck Neck: Yes supple Lymphatic: no lymphadenopathy noted Resp Effort & Inspection: normal respiratory effort and no use of accessory muscles Auscultation: clear to auscultation bilaterally Cardio Rate: regular rate Rhythm: regular rhythm Heart sounds: no gallops, no murmurs and no rubs Skin General skin exam: other ( warm) Extrem General: No clubbing, No cyanosis and No edema Assessment & Plan Assessment & Plan (1) Asthma-COPD overlap syndrome: Code(s): J44.9 - Chronic obstructive pulmonary disease, unspecified Plan: Well controlled on Symbicort and albuterol MDI. Continue current regimen. (2) Pulmonary nodules: Code(s): R91.8 - Other nonspecific abnormal finding of lung field Plan: Results of CT chest reviewed, old granulomatous nodules. No further imaging follow-up required at this time. Coding Level of Care Code Est Pt Level 4 (28823) Diagnoses Asthma-COPD overlap syndrome J44.9 Pulmonary nodules R91.8
== END 2023-08-30 11:40 | disposition home or self-care (01) ==
PROVIDERS: Visit Provider Internal Medicine Pulmonary Disease
DX: J44.9 Chronic obstructive pulmonary disease, unspecified (principal); R91.8 Other nonspecific abnormal finding of lung field
CPT/HCPCS: 99214

== ENCOUNTER → 2023-08-30 11:24 | Outpatient (BNVA) | payer MEDICARE, MEDICAID, SELFPAY | PROVIDERS: Visit Provider Internal Medicine Pulmonary Disease | DX: J44.9 Chronic obstructive pulmonary disease, unspecified (principal); R91.8 Other nonspecific abnormal finding of lung field; Z91.09 Other allergy status, other than to drugs and biological substances | CPT/HCPCS: 99212 ==

== ENCOUNTER 2023-09-23 10:01 | Outpatient (REF) | payer MEDICARE, MEDICAID, SELFPAY ==
[2023-09-23 11:51] LABS: Anion Gap 10 (12-20); Blood Urea Nitrogen 20 mg/dL (9-16); Calcium 9.4 mg/dL (8.4-10.2); Carbon Dioxide 29 mmol/L (22-29); Chloride 106 mmol/L (96-108); Cholesterol 157 mg/dL (<200); Estimated Glomerular Filt Rate > 60; Glucose Random 177 mg/dL (60-115); HDL Cholesterol 47 mg/dL (>40); LDL Cholesterol Calculated 81 mg/dL (<100); Potassium 4.2 mmol/L (3.3-5.1); Sodium 141 mmol/L (135-145); Triglycerides 148 mg/dL (<150)
[2023-09-23 12:24] LABS: Prostate Specific Antigen 0.14 ng/mL (<0.05-4.0)
[2023-09-23 12:30] LABS: Creatinine Urine 57.91 mg/dL
== END 2023-09-23 10:02 | disposition home or self-care (01) ==
LOC: HO.HHCL 10:01
PROVIDERS: Visit Provider Nurse Practitioner Primary Care
DX: E11.69 Type 2 diabetes mellitus with other specified complication (principal); E78.5 Hyperlipidemia, unspecified; I10 Essential (primary) 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; R39.15 Urgency of urination; Z12.5 Encounter for screening for malignant neoplasm of prostate
CPT/HCPCS: 36415; 80048; 80061; 82043; 82570; 84153

== ENCOUNTER → 2023-11-16 10:36 | Outpatient (REF) | payer MEDICARE, MEDICAID, SELFPAY | LOC: HO.SL 10:36 | PROVIDERS: PCP Internal Medicine; Visit Provider Nurse Practitioner Primary Care | DX: G47.33 Obstructive sleep apnea (adult) (pediatric) (principal); R06.83 Snoring; R40.0 Somnolence | CPT/HCPCS: 95806 ==

== ENCOUNTER → 2023-11-16 19:00 | Outpatient (BNV) | payer MEDICARE, MEDICAID, SELFPAY | PROVIDERS: PCP Internal Medicine; Visit Provider Internal Medicine | DX: G47.33 Obstructive sleep apnea (adult) (pediatric) (principal) | CPT/HCPCS: 95806 ==

== ENCOUNTER 2023-12-01 10:16 | Outpatient (AMB) | payer MEDICAID, SELFPAY ==
[2023-12-01 10:32] VITALS: BP 130/90; PULSE 65; TEMP 36.1; O2SAT 96; BMI 35.8
--- NOTE | 2023-12-01 10:32 | MHC.OFFVIS ---
Intake Vital Signs 12/01/23 10:32 Height 5 ft 7 in Weight 228 lb 6.382 oz BMI 35.8 BP 130/90 H Blood Pressure Location Lt brachial Position Sitting Pulse 65 Pulse Source Pulse Oximeter Temp 97 F Temp Source Skin Pulse Oximetry (%) 96 Oxygen Delivery Method Room Air Intake Visit Reasons: NOVEMBER 2023-pmr with emt i/85 Intake Note: Patient last seen 08/08/[address] Vaz, presents today for follow up. Currently on prednisone 1 mg qd. Requesting prednisone refill. Lining Stamper Required: Yes Lining Stamper Language: Sales And Marketing Professional Name: Refused Information Interpreted: clinical only Accompanied by: Spouse Allergies Penicillins [PENICILLINS] Allergy (Intermediate, Verified 12/01/23 10:34) RASH HPI HPI Comments History of Present Illness Details Mr Duncan, 68 yo male, returns today with his for follow-up of his PMR. He refused the [employer] translating service for this visit. He remains on prednisone 1 mg every other day. He still indicates he has some pain in his legs on days that he does not take the prednisone. There is no headache, jaw claudication or visual disturbance. Takes occasional acetaminophen for pains as well. Diabetes control seems to be good. He reports he cannot lift more than 10lbs and sometimes he cannot because of weakness, no pain. He can lift from the ground but cannot lift overhead. 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 Polymyalgia rheumatica Gastroesophageal reflux disease Asthma Gout History of high cholesterol Laceration of right hand involving extensor tendon HTN (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) Diabetes Pulmonary nodules Asthma-COPD overlap syndrome Dyspnea on exertion Surgical History Hx of circumcision Status post amputation of finger Hx of colonoscopy Family History Mother Myocardial infarction, Onset Age: 58 Social History Household Members: Spouse Household Members Other:: son Housing: House Alcohol intake: current Alcohol intake frequency: a few times a week Alcohol type: beer Patient Tobacco Use Status: Former Tobacco user Current occupational status: retired Review of Systems Const All systems reviewed & are unremarkable except as noted in HPI and below Physical Exam Vital Signs: BMI result Body Mass Index 35.8 APPEARANCE: Patient in no acute distress, groomed, nourished. normal gait EYES no redness, eyelids normal; no temporal artery tenderness, redness or swelling. EXTREMITIES: No edema, no calf tenderness, normal peripheral pulses. JOINT EXAM: Hands:? LEFT: Normal pain-free range of motion without tenderness, soft tissue swelling, increased warmth or erythema. Able to make a full fist and has a good solder leveler printed circuit boards strength. Loss of DIP 3rd digit (trauma). ? RIGHT: Normal pain-free range of motion without tenderness, soft tissue swelling, increased warmth or erythema. Able to make a full fist and has a good solder leveler printed circuit boards strength. Heberdens node 3rd digit. Wrists:? Normal pain-free range of motion without tenderness, swelling, increased warmth or erythema. Elbows: Normal pain-free range of motion without tenderness, swelling, increased warmth or erythema. Shoulders:?? LEFT: Full range of motion with slight pain with full abduction. Slight trapezial and anterior tenderness. No swelling, weakness, erythema or warmth. ? RIGHT: Full range of motion with no pain. No tenderness, swelling, weakness, erythema or warmth. The Hip bursa:? No tenderness. no tenderness to thighs and buttocks Knees:? Normal pain-free range of motion without tenderness, swelling, increased warmth or erythema.? There is no effusion or crepitation Assessment & Plan Assessment & Plan (1) Polymyalgia rheumatica: Comment: January 2020-started on 15mg prednisone Self stopped prednisone October 2021-restarted 7 mg prednisone now tapered off, August 2022 Prednisone restarted September 2022. Code(s): M35.3 - Polymyalgia rheumatica (2) Muscle weakness of left upper extremity: Code(s): M62.81 - Muscle weakness (generalized) (3) Muscle weakness of right upper extremity: Code(s): M62.81 - Muscle weakness (generalized) (4) senior living (current) use of systemic steroids: Code(s): Z79.52 - senior living (current) use of systemic steroids Plan #PMR:Mr Paul here for follow-up of PMR. He still apparently has some symptoms on days that he does not take the prednisone. He continues on prednisone 1mg QOD and seem to be doing well on that. His inflammatory marker have been at goal for quite a while. There are no signs of giant cell arteritis on PE today. #Upper Extremity Weakness/Alf Use of Steroids: He does have some upper extremity weakness which may be from halfway use of prednisone use deconditioning. He refused PT so I am encouraging him to start a muscle training routine to regain some strength. I have recommended starting with ten lb weights and do 5 reps 3 times per week and progress according to the outline I gave him. He agrees and does have the equipment at home. I discussed with him that without this exercise his muscles will continue to weaken. He is also on atorvastatin so there is consideration of the possible side effects on muscles. Normal follow-up at 3-4 months would be reasonable but I will see him in 6 weeks to see how things a progressing with the routine. . 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
== END 2023-12-01 11:15 | disposition home or self-care (01) ==
PROVIDERS: PCP Internal Medicine; Visit Provider Nurse Practitioner Family
DX: M35.3 Polymyalgia rheumatica (principal); M62.81 Muscle weakness (generalized); Z79.52 Long term (current) use of systemic steroids
CPT/HCPCS: 99213

== ENCOUNTER → 2023-12-01 10:16 | Outpatient (BNVA) | payer MEDICAID, SELFPAY | PROVIDERS: PCP Internal Medicine; Visit Provider Nurse Practitioner Family ==

== ENCOUNTER 2023-12-06 08:25 | Outpatient (REF) | payer MEDICARE, MEDICAID, SELFPAY | END 2023-12-06 08:26 | disposition home or self-care (01) | LOC: HO.SH 08:25 | PROVIDERS: Visit Provider Nurse Practitioner Primary Care | DX: Z01.118 Encounter for examination of ears and hearing with other abnormal findings (principal); H90.3 Sensorineural hearing loss, bilateral | CPT/HCPCS: 92557; 92567 ==

== ENCOUNTER 2023-12-20 09:27 | Outpatient (REF) | payer MEDICARE, MEDICAID, SELFPAY ==
--- NOTE | 2023-12-20 10:59 | MHC.AU.HA1 ---
Hearing Aid Evaluation Date of Visit: 12/20/23 Coroner Technician Used: Syriac- In Person Historical Information: Description of Hearing: Moderate to severe sensorineural hearing loss. Current personal amplification information, if applicable: None. Summary: Accompanied by . Reviewed hearing aid options. His primary objectives are to have clearer hearing for TV and conversations. Abimael would like to proceed with an ITC style aid, concerned about losing a RONAK and it fitting with his glasses. He is not interested in pairing aids with a phone at this time. Impressions taken without incidence Au. Hearing Aid Prescription: Based on the individual?s shared listening needs, communication environments, dexterity, desire for connectivity, and personal preferences, the following prescription for amplification has been made: Right ear: Make, Model, Color: Oticon Own 2 ITC Battery Size: 312 Left ear: Make, Model, Color: Oticon Own 2 ITC Battery Size: 312 Plan of Care: Patient wishes to purchase hearing aids as prescribed Action Taken/Action Needed: [place]old Impressions Taken Hearing Instrument Fitting to be scheduled when materials arrive Primary Diagnosis: H90.3 Bilateral Sensorineural Hearing Loss Signature: Provider: Swetha Mares, [facility]
== END 2023-12-20 09:28 | disposition home or self-care (01) ==
LOC: HO.HAP 09:27
PROVIDERS: Visit Provider Nurse Practitioner Primary Care
DX: Z46.1 Encounter for fitting and adjustment of hearing aid (principal); H90.3 Sensorineural hearing loss, bilateral
CPT/HCPCS: 92591; V5275

== ENCOUNTER 2024-01-11 13:58 | Outpatient (REF) | payer MEDICAID, SELFPAY ==
--- NOTE | 2024-01-11 15:17 | MHC.AU.HA2 ---
Hearing Instrument Fitting- Adult- Binaural Date of Visit: 01/11/24 Capsule Maker Used: [facility] in-personKristian Hearing Instruments Dispensed: Right Ear: Make, Model, Color, Serial Number: Oticon Own 2 ITC Beige [id number] Wallpaper Embosser Helper Repair Warranty: 01/29/2027 Wallpaper Embosser Helper Loss and Damage Warranty: 01/29/2027 [facility] Service Plan: 01/11/25 Battery Size: 312 Type of Wax Guard: Minifit pro wax Left Ear: Make, Model, Color, Serial Number: Oticon Own 2 ITC Beige [id number] Wallpaper Embosser Helper Repair Warranty: 01/29/2027 Wallpaper Embosser Helper Loss and Damage Warranty: 01/29/2027 [facility] Service Plan: 01/11/25 Battery Size: 312 Type of Wax Guard: Minifit pro wax Summary of Fitting: Fit with and oriented to binaural Oticon Own 2 ITC HAs. Verified to DSL5 Adult targets. Ran feedback mobility architect manager. Set to adaptation 1 with gradual increase. Good subjective comfort and benefit reported. VC currently disabled. Practiced insertion and removal, battery procedures, cleaning and wax guard change. Recommendations: Recommendations: Hearing instrument care and maintenance were discussed and practiced. A hearing instrument follow-up was scheduled. Diagnosis Code(s): Primary Diagnosis: H90.3 Bilateral Sensorineural Hearing Loss Signature: Provider: Swetha Mares, [facility]
== END 2024-01-11 13:59 | disposition home or self-care (01) ==
LOC: HO.HAP 13:58
PROVIDERS: Visit Provider Internal Medicine
DX: Z46.1 Encounter for fitting and adjustment of hearing aid (principal); H90.3 Sensorineural hearing loss, bilateral
CPT/HCPCS: V5011; V5020; V5160; V5259; V5266

== ENCOUNTER 2024-01-26 14:00 | Outpatient (REF) | payer MEDICARE, MEDICAID, SELFPAY | END 2024-01-26 14:01 | disposition home or self-care (01) | LOC: HO.HAP 14:00 | PROVIDERS: Visit Provider Internal Medicine | DX: Z13.89 Encounter for screening for other disorder (principal) ==

== ENCOUNTER 2024-02-08 10:05 | Outpatient (AMB) | payer MEDICAID, SELFPAY ==
--- NOTE | 2024-02-08 10:06 | A.OFFVIS_ITS ---
Intake Vital Signs 02/08/24 10:11 Height 5 ft 7 in Weight 222 lb 7.143 oz BMI 34.8 BP 112/78 Blood Pressure Location Rt brachial Position Sitting Pulse 69 Pulse Source Pulse Oximeter Temp 97.2 F Temp Source Skin Pulse Oximetry (%) 94 Oxygen Delivery Method Room Air Intake Visit Reasons: PMR/CONFIRMED Intake Note: Patient last seen 12/01/23 by Emory, presents today for a 6 week follow up. Clinical Psychologist Licensed Required: No Accompanied by: Spouse Allergies Penicillins [PENICILLINS] Allergy (Intermediate, Verified 02/08/24 10:06) RASH HPI HPI Comments History of Present Illness Details Mr Duncan, 68 yo male, returns today with his for follow-up of his PMR. He refused the iPad translating service for this visit. He remains on prednisone 1 mg every other day. He feels better most of the time and he things he is getting stronger. He did start doing more push ups. He still indicates he has some pain in his legs on days that he does not take the prednisone. There is no headache, jaw claudication or visual disturbance. Takes occasional acetaminophen for pains as well. Diabetes control seems to be good. 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 Polymyalgia rheumatica Gastroesophageal reflux disease Asthma Gout History of high cholesterol Laceration of right hand involving extensor tendon HTN (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) Diabetes Pulmonary nodules Asthma-COPD overlap syndrome Dyspnea on exertion Surgical History Hx of circumcision Status post amputation of finger Hx of colonoscopy Family History Mother Myocardial infarction, Onset Age: 58 Social History Household Members: Spouse Household Members Other:: son Housing: House Alcohol intake: current Alcohol intake frequency: a few times a week Alcohol type: beer Patient Tobacco Use Status: Former Tobacco user Current occupational status: retired Review of Systems Const All systems reviewed & are unremarkable except as noted in HPI and below Physical Exam Vital Signs: Last Vital Signs Temp 97.2 F 02/08/24 10:11 Pulse 69 02/08/24 10:11 BP 112/78 02/08/24 10:11 Pulse Ox 94 02/08/24 10:11 Oxygen Delivery Method Room Air 02/08/24 10:11 BMI result Body Mass Index 34.8 Assessment & Plan Assessment & Plan (1) Polymyalgia rheumatica: Comment: January 2020-started on 15mg prednisone Self stopped prednisone October 2021-restarted 7 mg prednisone now tapered off, August 2022 Prednisone restarted September 2022. 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 He still apparently has some symptoms on days that he does not take the prednisone. He continues on prednisone 1mg QOD and seem to be doing well on that. His inflammatory marker have been at goal for quite a while. There are no signs of giant cell arteritis on PE today. Patient will continue with the prednisone 1 mg EOD or as needed. Will uptaain updated labs 1 week before next visit. #Upper Extremity Weakness/Classification Officer Use of Steroids: He will continue with his exercises to improve strength. He does have some upper extremity weakness which may be from fdc use of prednisone use deconditioning. He refused PT so I am encouraging him to start a muscle training routine to regain some strength. I have recommended starting with ten lb weights and do 5 reps 3 times per week and progress according to the outline I gave him. He agrees and does have the equipment at home. I discussed with him that without this exercise his muscles will continue to weaken. He is also on atorvastatin so there is consideration of the possible side effects on muscles. Follow-up in 6 months Orders: Orders C Reactive Protein Today M35.3 - Polymyalgia rheumatica Erythrocyte Sedimentation Rate Today M35.3 - Polymyalgia rheumatica Coding Level of Care Code Est Pt Level 3 (83161) Diagnoses Polymyalgia rheumatica M35.3 Muscle weakness of left upper extremity M62.81 Muscle weakness of right upper extremity M62.81 retirement (current) use of systemic steroids Z79.52
[2024-02-08 10:11] VITALS: BP 112/78; PULSE 69; TEMP 36.2; O2SAT 94; BMI 34.8
== END 2024-02-08 10:39 | disposition home or self-care (01) ==
PROVIDERS: PCP Internal Medicine; Visit Provider Nurse Practitioner Family
DX: M35.3 Polymyalgia rheumatica (principal); M62.81 Muscle weakness (generalized); Z79.52 Long term (current) use of systemic steroids
CPT/HCPCS: 99213

== ENCOUNTER → 2024-02-08 10:05 | Outpatient (BNVA) | payer MEDICARE, MEDICAID, SELFPAY | PROVIDERS: PCP Internal Medicine; Visit Provider Nurse Practitioner Family | DX: M35.3 Polymyalgia rheumatica (principal); M62.81 Muscle weakness (generalized); Z79.52 Long term (current) use of systemic steroids | CPT/HCPCS: 99212 ==

== ENCOUNTER 2024-02-23 11:03 | Outpatient (AMB) | payer MEDICARE, MEDICAID, SELFPAY ==
[2024-02-23 11:06] VITALS: BP 102/62; PULSE 63; O2SAT 95; BMI 34.0
--- NOTE | 2024-02-23 11:06 | MHC.OFFVIS ---
Intake Vital Signs 02/23/24 11:06 Height 5 ft 7 in Weight 217 lb 2.485 oz BMI 34.0 BP 102/62 Blood Pressure Location Rt brachial Position Sitting Pulse 63 Pulse Source Doppler Pulse Oximetry (%) 95 Oxygen Delivery Method Room Air Intake Visit Reasons: Asthma [employer] Required: Yes [employer] Name: Deidra Perry Ela.L.M Allergies Penicillins [PENICILLINS] Allergy (Intermediate, Verified 02/23/24 11:10) RASH HPI Asthma HPI Details 68-year-old gentleman, former under 20 pack-year smoker, quit 2003 followed for pulmonary nodules, asthma, environmental allergies, and dyspnea on exertion after walking 2-3 blocks.? He tried Xolair, however did not receive significant symptomatic benefit. Patient was continued on Symbicort and now his symptoms are well controlled. He denies any recent exacerbations. His follow-up CT chest that showed old granulomatous nodules. 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 Polymyalgia rheumatica Gastroesophageal reflux disease Asthma Gout History of high cholesterol Laceration of right hand involving extensor tendon HTN (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) Diabetes Pulmonary nodules Asthma-COPD overlap syndrome Dyspnea on exertion Surgical History Hx of circumcision Status post amputation of finger Hx of colonoscopy Family History Mother Myocardial infarction, Onset Age: 58 Social History Household Members: Spouse Household Members Other:: son Housing: House Alcohol intake: current Alcohol intake frequency: a few times a week Alcohol type: beer Patient Tobacco Use Status: Former Tobacco user Current occupational status: retired Review of Systems Const Denies daytime sleepiness, Denies excessive sweating, Denies fatigue, Denies fever(s), Denies lethargy, Denies malaise, Denies night sweats, Denies snoring and Denies weight loss Eyes Denies blurry vision and Denies itchy eyes ENT Denies nasal congestion, Denies post nasal drip, Denies sinus pain, Denies sinus pressure and Denies other ( Thrush) Card Denies chest pain, Denies pedal edema, Denies dyspnea, Denies orthopnea and Denies paroxysmal nocturnal dyspnea Resp Denies cough, Denies hemoptysis, Denies excessive phlegm production, Denies dyspnea, Denies snoring and Denies wheezing GI Denies abdominal pain and Denies heartburn Musc Denies myalgias, Denies arthralgias and Denies joint swelling Skin/Breast Denies rash Neuro Denies memory loss and Denies seizure-like activity Psych Denies abnormal sleep pattern, Denies anxiety and Denies memory loss Endo Denies excessive sweating, Denies fatigue and Denies heat intolerance Zoltan/Lymph Denies easy bruising Aller/Immun Denies itchy eyes, Denies seasonal rhinorrhea and Denies wheezing Physical Exam Vital Signs: Last Vital Signs Pulse 63 02/23/24 11:06 BP 102/62 02/23/24 11:06 Pulse Ox 95 02/23/24 11:06 Oxygen Delivery Method Room Air 02/23/24 11:06 BMI result Body Mass Index 34.0 Const General: no acute distress and alert Nutritional Appearance: not obese Orientation/consciousness: Other orientation findings ( oriented) HEENT Head: Yes atraumatic Eyes General: appearance normal, both eyes and all related structures Sclerae: sclerae normal EOM: EOMs intact bilaterally Neck Neck: Yes supple Lymphatic: no lymphadenopathy noted Resp Effort & Inspection: normal respiratory effort and no use of accessory muscles Auscultation: clear to auscultation bilaterally Cardio Rate: regular rate Rhythm: regular rhythm Heart sounds: no gallops, no murmurs and no rubs Skin General skin exam: other ( warm) Extrem General: No clubbing, No cyanosis and No edema Assessment & Plan Assessment & Plan (1) Asthma-COPD overlap syndrome: Code(s): J44.9 - Chronic obstructive pulmonary disease, unspecified Plan: Well controlled on Symbicort and albuterol MDI. Continue current regimen. (2) Environmental allergies: Code(s): Z91.09 - Other allergy status, other than to drugs and biological substances Plan: Well controlled on as needed Flonase. Continue current regimen. Coding Level of Care Code Est Pt Level 4 (28597) Diagnoses Asthma-COPD overlap syndrome J44.9 Environmental allergies Z91.09
== END 2024-02-23 11:30 | disposition home or self-care (01) ==
PROVIDERS: PCP Internal Medicine; Visit Provider Internal Medicine Pulmonary Disease
DX: J44.9 Chronic obstructive pulmonary disease, unspecified (principal); Z91.09 Other allergy status, other than to drugs and biological substances
CPT/HCPCS: 99214

== ENCOUNTER → 2024-02-23 11:03 | Outpatient (BNVA) | payer MEDICARE, MEDICAID, SELFPAY | PROVIDERS: PCP Internal Medicine; Visit Provider Internal Medicine Pulmonary Disease | DX: J44.9 Chronic obstructive pulmonary disease, unspecified (principal); Z91.09 Other allergy status, other than to drugs and biological substances | CPT/HCPCS: 99212 ==

== ENCOUNTER 2024-04-18 08:45 | Outpatient (REF) | payer MEDICARE, MEDICAID, SELFPAY ==
[2024-04-18 12:19] LABS: Hemoglobin 14.1 g/dl (14.0-18.0)
[2024-04-18 12:46] LABS: TSH reflex Free T4 1.46 uIU/mL (0.32-4.0)
[2024-04-18 12:51] LABS: Vitamin B12 440 pg/mL (200-900)
[2024-04-19 12:29] LABS: RPR Rapid Plasma Reagin NON-REACTIVE (NON-REACTIVE)
== END 2024-04-18 08:46 | disposition home or self-care (01) ==
LOC: HO.HHCL 08:45
PROVIDERS: Visit Provider Nurse Practitioner Primary Care
DX: R41.3 Other amnesia (principal)
CPT/HCPCS: 36415; 82607; 84443; 85014; 85018; 86592

== ENCOUNTER 2024-05-23 09:22 | Outpatient (REF) | payer OTHER, SELFPAY ==
[2024-05-23 11:30] LABS: Alanine Aminotransferase 20 U/L (0-40); Albumin Level 4.3 g/dL (3.5-5.0); Alkaline Phosphatase 75 U/L (39-117); Aspartate Amino Transferase 18 U/L (5-37); Bilirubin Direct 0.2 mg/dL (0.0-0.5); Bilirubin Total 0.5 mg/dL (0.0-1.0); Cholesterol 135 mg/dL (<200); HDL Cholesterol 48 mg/dL (>40); LDL Cholesterol Calculated 67 mg/dL (<100); Total Protein 7.8 g/dL (6.5-8.0); Triglycerides 101 mg/dL (<150)
== END 2024-05-23 09:23 | disposition home or self-care (01) ==
LOC: HO.HHCL 09:22
PROVIDERS: Visit Provider Nurse Practitioner Primary Care
DX: E11.69 Type 2 diabetes mellitus with other specified complication (principal); E78.5 Hyperlipidemia, unspecified
CPT/HCPCS: 36415; 80061; 80076

== ENCOUNTER 2024-07-30 09:39 | Outpatient (REF) | payer OTHER, SELFPAY ==
[2024-07-30 10:59] LABS: C Reactive Protein 0.67 mg/dL (< or = 0.50)
[2024-07-30 11:28] LABS: Erythrocyte Sedimentation Rate 6 MM/HR (0-15)
== END 2024-07-30 09:40 | disposition home or self-care (01) ==
LOC: HO.10HDL 09:39
PROVIDERS: Visit Provider Nurse Practitioner Family
DX: M35.3 Polymyalgia rheumatica (principal)
CPT/HCPCS: 36415; 85652; 86140

== ENCOUNTER 2024-08-10 10:01 | Outpatient (AMB) | payer OTHER, SELFPAY ==
[2024-08-10 10:24] VITALS: BP 100/58; BMI 33.1
--- NOTE | 2024-08-10 10:24 | A.OFFVIS_ITS ---
Vital Signs 08/10/24 10:24 Height 5 ft 7 in Weight 211 lb 10.3 oz BMI 33.1 BP 100/58 L Blood Pressure Location Lt brachial Position Sitting Intake Visit Reasons: PMR - Remain on Pred 1 mg EOD Intake Note: Patient last seen by Amaya Cat on 02/08/24. Presents today for PMR follow up and test results. Accompanied by: Spouse Allergies Penicillins [PENICILLINS] Allergy (Intermediate, Verified 08/10/24 10:26) RASH HPI Comments Details: Patient is a 68-year-old male with 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, diabetes (no A1c in file unsure of control), hyperlipidemia who presents for follow-up of his polymyalgia rheumatica. Interval History: Last seen 02/08/2024 with Amaya Cat. At that time patient was stable however still complaining of pain on the days that he does not take prednisone (taking prednisone alternating 1 mg days) Plan at that time was to continue monitoring. Patient had no signs or symptoms of giant cell arteritis at that time either. Today patient continues to feel well. Does report that he has pain on his non prednisone days. He denies headache, vision loss or blurry vision. No difficulty swallowing. Rheumatologic History: Patient diagnosed with polymyalgia rheumatica in 01/2022 after presenting with pain, stiffness, weakness in his proximal muscle groups including his shoulders and his thighs. He was started on 15 mg of prednisone which resolved her symptoms and this was slowly tapered. Discontinued prednisone 10/2021 Restarted 7 mg prednisone 08/2022 and this was tapered off (unsure of the stop date) Prednisone restarted at low dose in 09/2022. Currently on 1 mg prednisone alternate days for the since Nov 2023 Medication History: Prednisone * Started 15mg 01/2022 * Discontinued 10/2021 * Restarted 05/2022 7mg * Discontinued ? 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 Polymyalgia rheumatica Gastroesophageal reflux disease Asthma Gout History of high cholesterol Laceration of right hand involving extensor tendon HTN (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) Diabetes Pulmonary nodules Asthma-COPD overlap syndrome Dyspnea on exertion Surgical History Hx of circumcision Status post amputation of finger Hx of colonoscopy Family History Mother Myocardial infarction, Onset Age: 58 Social History Household Members: Spouse Household Members Other:: son Housing: House Alcohol intake: current Alcohol intake frequency: a few times a week Alcohol type: beer Patient Tobacco Use Status: Former Tobacco user Current occupational status: retired Review of Systems Const Details: Review of Systems Constitutional: Denies fever, chills, weight loss ENT: Denies vision changes, eye pain or eye redness, dental caries, dry mouth GI: Denies nausea, vomiting, diarrhea, abdominal pain, change in BM Pulm: Denies SOB, MARCANO, hemoptysis, wheezing Cards: Denies chest pain, palpitations Skin: Denies Raynaud's, rash, nail changes, photosensitivity, FIELD AGENT: Denies headaches, weakness, paresthesias, recurrent falls MSK: Denies joint pain and joint stiffness. Denies joint swelling, muscle weakness, bone pain Review of Symptoms All other systems reviewed and are unremarkable except noted above Physical Exam Vital Signs: Last Vital Signs BP 100/58 L 08/10/24 10:24 BMI result Body Mass Index 33.1 Const Other: Physical Examination Patient well appearing and in no apparent painful distress Able to rise from chair without support. ?Gait normal. Constitutional: ?Mucous membranes pink and moist patient alert and cooperative HEENT: ?Conjunctiva and sclera clear. ?Pupils equal round and reactive to light. ?No lymphadenopathy. ?Normal dentition. Resp: ?Normal respiratory effort and able to speak in complete sentences. ?Clear to auscultation bilaterally. ?No crackles, rales, rhonchi, wheezes heard. Cards: ?Regular rate and rhythm. ?S1 and S2 heard no murmurs. ?Radial pulses intact bilaterally MSK: ?No swelling noted to bilateral hands. Tip of 3rd digit on the left hand has a healed amputation (secondary to accident) ?No evidence of synovitis. ?Able to move all joints with full range of motion, without limitation. No scalp tenderness, normal bilateral temporal artery pulsations 5/5 strength throughout all upper and lower extremity muscle groups. Results Reviewed Results Reviewed: Laboratory Tests 07/30/24 09:44 ESR 6 C-Reactive Protein 0.67 H All available lab results and imaging personally reviewed Assessment & Plan Assessment & Plan (1) Polymyalgia rheumatica: Comment: Prednisone ? Started 15mg 01/2022 ? Discontinued 10/2021 ? Restarted 05/2022 7mg ? Discontinued ? ? Restarted 09/2022 ?mg ? Tapered to 1mg 11/2023 Code(s): M35.3 - Polymyalgia rheumatica Category: Medical Plan: #PMR Patient is here for follow-up of PMR. He is unable to taper the prednisone. Has been on and off prednisone for the past 4 years. Discussed with him and his who was present for the appointment that the long-term risks and effects of prednisone can lead to worsening of his 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 and his diabetes. We will change his dose 2.5 mg prednisone every day with the goal to stop his prednisone within the next 6 months. Of note he does have slight increase in his CRP but his ESR remains normal. Discussed this with the patient and his also that this is not to be alarming but if this continues to get worse we will likely have to transition him to a DMARD such as methotrexate. Will send for the appropriate lab studies in preparation for possible commensation of methotrexate. 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: Code(s): Z79.52 - long-term (current) use of systemic steroids Category: Medical Plan: #Long-term use of steroids Discussed with patient the risks and benefits of steroid for his PMR Benefits include: * Reduced pain, improved mobility, increased participation in activities, and decreased progression of disease Risks include: * GI upset, potential ultrasound worsening or formation (especially in patients > 65 years old), elevated blood pressure/worsening 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, elevated blood sugar/worsening diabetes control, worsening of bone density, elevated lipids/worsening triglycerides, cataract formation, weight gain Recommended using proton pump inhibitors (PPIs) for the duration of steroid use to reduce the risk of gastric ulcers and vitamin-D daily to reduce the risk of osteoporosis Labs checked: A1c, T spot, hepatitis-B and C serologies We will check DEXA at next visit given his long-term use of steroids Plan I spent 45 minutes reviewing the record and labs, seeing the patient, discussing results and documenting in the medical record Orders: Orders C Reactive Protein 3 Months M35.3 - Polymyalgia rheumatica, Z79.52 - 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 Panel 3 Months M35.3 - Polymyalgia rheumatica, Z11.9 - Encounter for screening for infectious and parasitic diseases, unspecified, Z79.52 - long-term (current) use of systemic steroids T Spot TB 3 Months Z11.9 - Encounter for screening for infectious and parasitic diseases, unspecified, Z79.52 - long-term (current) use of systemic steroids Hepatitis A,B,C Profile 3 Months Z11.9 - Encounter for screening for infectious and parasitic diseases, unspecified, Z79.52 - long-term (current) use of systemic steroids Medications: Changed From prednisone 1 mg PO Q OTHER DAY 15 tabs 2RF M35.3 - Polymyalgia rheumatica To prednisone 0.5 mg (1/2 x 1 mg) PO DAILY 90 tabs 1RF M35.3 - Polymyalgia rheumatica Coding Level of Care Code Est Pt Level 4 (81368) Complex EM visit Add On G2211 Diagnoses Polymyalgia rheumatica M35.3 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
== END 2024-08-10 11:05 | disposition home or self-care (01) ==
PROVIDERS: PCP Internal Medicine; Visit Provider Student in an Organized Health Care Education/Training Program
DX: M35.3 Polymyalgia rheumatica (principal); Z79.52 Long term (current) use of systemic steroids
CPT/HCPCS: 99215; G2211

== ENCOUNTER → 2024-08-10 10:01 | Outpatient (BNVA) | payer OTHER, SELFPAY | PROVIDERS: PCP Internal Medicine; Visit Provider Student in an Organized Health Care Education/Training Program | DX: M35.3 Polymyalgia rheumatica (principal); Z79.52 Long term (current) use of systemic steroids | CPT/HCPCS: 99212 ==

== ENCOUNTER 2024-08-29 11:06 | Outpatient (AMB) | payer OTHER, SELFPAY ==
--- NOTE | 2024-08-29 11:15 | A.OFFVIS_ITS ---
Vital Signs 08/29/24 11:16 Height 5 ft 7 in Weight 213 lb BMI 33.4 BP 118/62 Blood Pressure Location Lt brachial Position Sitting Pulse 67 Pulse Source Doppler Pulse Oximetry (%) 95 Oxygen Delivery Method Room Air Intake Visit Reasons: Asthma Order Packer Or Packager Required: Yes Order Packer Or Packager Name: Deidra Perry Unique Allergies Penicillins [PENICILLINS] Allergy (Intermediate, Verified 08/10/24 10:26) RASH acetaminophen [From Percocet] Adverse Reaction (Intermediate, Verified 08/29/24 11:21) Agitated oxycodone [From Percocet] Adverse Reaction (Intermediate, Verified 08/29/24 11:21) Agitated HPI HPI Asthma: Details: 69-year-old gentleman, former under 20 pack-year smoker, quit 2003 followed for pulmonary nodules, asthma, environmental allergies, and dyspnea on exertion after walking 2-3 blocks.? He tried Xolair, however did not receive significant symptomatic benefit. Patient was continued on Symbicort and now his symptoms are well controlled. His follow-up CT chest that showed old granulomatous nodules. He denies recent exacerbations. 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 Polymyalgia rheumatica Gastroesophageal reflux disease Asthma Gout History of high cholesterol Laceration of right hand involving extensor tendon HTN (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) Diabetes Pulmonary nodules Asthma-COPD overlap syndrome Dyspnea on exertion Surgical History Hx of circumcision Status post amputation of finger Hx of colonoscopy Family History Mother Myocardial infarction, Onset Age: 58 Social History Household Members: Spouse Household Members Other:: son Housing: House Alcohol intake: current Alcohol intake frequency: a few times a week Alcohol type: beer Patient Tobacco Use Status: Former Tobacco user Current occupational status: retired Review of Systems Const Denies daytime sleepiness, Denies excessive sweating, Denies fatigue, Denies fever(s), Denies lethargy, Denies malaise, Denies night sweats, Denies snoring and Denies weight loss Eyes Denies blurry vision and Denies itchy eyes ENT Denies nasal congestion, Denies post nasal drip, Denies sinus pain, Denies sinus pressure and Denies other ( Thrush) Card Denies chest pain, Denies pedal edema, Denies dyspnea, Denies orthopnea and Denies paroxysmal nocturnal dyspnea Resp Denies cough, Denies hemoptysis, Denies excessive phlegm production, Denies dyspnea, Denies snoring and Denies wheezing GI Denies abdominal pain and Denies heartburn Musc Denies myalgias, Denies arthralgias and Denies joint swelling Skin/Breast Denies rash Neuro Denies memory loss and Denies seizure-like activity Psych Denies abnormal sleep pattern, Denies anxiety and Denies memory loss Endo Denies excessive sweating, Denies fatigue and Denies heat intolerance Zoltan/Lymph Denies easy bruising Aller/Immun Denies itchy eyes, Denies seasonal rhinorrhea and Denies wheezing Physical Exam Vital Signs: Last Vital Signs Pulse 67 08/29/24 11:16 BP 118/62 08/29/24 11:16 Pulse Ox 95 08/29/24 11:16 Oxygen Delivery Method Room Air 08/29/24 11:16 BMI result Body Mass Index 33.4 Const General: no acute distress and alert Nutritional Appearance: not obese Orientation/consciousness: Other orientation findings ( oriented) HEENT Head: Yes atraumatic Eyes General: appearance normal, both eyes and all related structures Sclerae: sclerae normal EOM: EOMs intact bilaterally Neck Neck: Yes supple Lymphatic: no lymphadenopathy noted Resp Effort & Inspection: normal respiratory effort and no use of accessory muscles Auscultation: clear to auscultation bilaterally Cardio Rate: regular rate Rhythm: regular rhythm Heart sounds: no gallops, no murmurs and no rubs Skin General skin exam: other ( warm) Extrem General: No clubbing, No cyanosis and No edema Assessment & Plan Assessment & Plan (1) Asthma-COPD overlap syndrome: Code(s): J44.9 - Chronic obstructive pulmonary disease, unspecified Category: Medical Plan: Reasonable control on current regimen of Symbicort and albuterol MDI, though patient is not fully compliant with Symbicort. Will switch albuterol MDI 2 Airsupra (2) Environmental allergies: Code(s): Z91.09 - Other allergy status, other than to drugs and biological substances Category: Medical Plan: Well controlled on Flonase. Continue current regimen. Medications: New albuterol-budesonide 90-80 mcg/actuation (Airsupra) 2 inhalations inhalation TID PRN 1 ea 6RF shortness of breath Refilled budesonide-formoterol 160-4.5 mcg/actuation (Symbicort) 2 puffs inhalation BID 1 ea 6RF 30 days Coding Level of Care Code Est Pt Level 4 (06903) Diagnoses Asthma-COPD overlap syndrome J44.9 Environmental allergies Z91.09
[2024-08-29 11:16] VITALS: BP 118/62; PULSE 67; O2SAT 95; BMI 33.4
== END 2024-08-29 11:32 | disposition home or self-care (01) ==
PROVIDERS: PCP Internal Medicine; Visit Provider Internal Medicine Pulmonary Disease
DX: J44.9 Chronic obstructive pulmonary disease, unspecified (principal); Z91.09 Other allergy status, other than to drugs and biological substances
CPT/HCPCS: 99214

== ENCOUNTER → 2024-08-29 11:06 | Outpatient (BNVA) | payer OTHER, SELFPAY | PROVIDERS: PCP Internal Medicine; Visit Provider Internal Medicine Pulmonary Disease | DX: J44.9 Chronic obstructive pulmonary disease, unspecified (principal); Z91.09 Other allergy status, other than to drugs and biological substances | CPT/HCPCS: 99212 ==

== ENCOUNTER 2024-10-09 09:24 | Outpatient (REF) | payer OTHER, SELFPAY ==
[2024-10-09 10:49] LABS: MANUAL DIFF FLAG NO
[2024-10-09 10:54] LABS: Basophils Percent Auto 0.2 % (0-2); Eosinophils Absolute Auto 0.2 X10*3/uL (0.0-0.4); Eosinophils Percent Auto 3.9 % (0-4); Hematocrit 44.3 % (42.0-52.0); Hemoglobin 15.1 g/dl (14.0-18.0); Imm Gran Abs Auto 0.01 X10*3/uL (0.00-0.03); Imm Gran Pct Auto 0.2 % (0.0-0.4); Lymphocytes Absolute Auto 1.6 X10*3/uL (1.2-4.9); Lymphocytes Percent Auto 30.7 % (20-40); Mean Corpuscular HGB Conc 34.1 g/dl (31.0-36.0); Mean Corpuscular Hemoglobin 30.1 pg (27.0-33.0); Mean Corpuscular Volume 88.4 fL (80.0-98.0); Monocytes Absolute Auto 0.6 X10*3/uL (0.1-1.2); Monocytes Percent Auto 12.1 % (2-11); Neutrophils Absolute Auto 2.7 x10*3/uL (2.0-8.3); Neutrophils Percent Auto 52.9 % (45-73); Platelet Count 258 X10*3/uL (160-400); Red Blood Count 5.01 X10*6/uL (4.60-5.80); Red Cell Distribution Width 12.1 % (11.0-16.0); White Blood Count 5.1 X10*3/uL (4.8-10.8)
[2024-10-09 11:10] LABS: Alanine Aminotransferase 28 U/L (0-40); Albumin Level 4.3 g/dL (3.5-5.0); Alkaline Phosphatase 76 U/L (39-117); Anion Gap 14 (12-20); Aspartate Amino Transferase 39 U/L (5-37); Blood Urea Nitrogen 12 mg/dL (9-16); C Reactive Protein 0.54 mg/dL (< or = 0.50); Calcium 9.1 mg/dL (8.4-10.2); Carbon Dioxide 24 mmol/L (22-29); Chloride 104 mmol/L (96-108); Estimated Glomerular Filt Rate > 60; Glucose Random 137 mg/dL (60-115); Potassium 4.3 mmol/L (3.3-5.1); Sodium 138 mmol/L (135-145); Total Protein 7.4 g/dL (6.5-8.0)
[2024-10-09 11:36] LABS: Erythrocyte Sedimentation Rate 6 MM/HR (0-15)
[2024-10-09 12:14] LABS: HBS Num1 212.01 mIU/mL (0-7.99); HBc Num1 5.77 S/CO (0.00-0.79); HBsAGNum1 0.42 S/CO (0.00-0.99); Hepatitis A Antibody IgM 0.24 Index (0-0.79); Hepatitis B Surface Antigen Negative (Negative); ~HepC Num1 0.32 S/CO (0.00-0.79); ~Hepatitis A Antibody IgM Nonreactive (Nonreactive); ~Hepatitis B Surface Antibody REACTIVE (Nonreactive); ~Hepatitis C Antibody Nonreactive (Nonreactive)
[2024-10-09 13:34] LABS: HBc Num2 6.17 S/CO; HBc Num3 6.11 S/CO; Hepatitis B Core Antibody Reactive (Nonreactive)
[2024-10-12 03:59] LABS: TS Negative Control Passed; TS Panel A 0; TS Panel B 0; TS Positive Control Passed; TSpotTB Negative (Negative)
== END 2024-10-09 09:25 | disposition home or self-care (01) ==
LOC: HO.10HDL 09:24
PROVIDERS: Visit Provider Student in an Organized Health Care Education/Training Program
DX: M35.3 Polymyalgia rheumatica (principal); Z11.9 Encounter for screening for infectious and parasitic diseases, unspecified; Z79.52 Long term (current) use of systemic steroids
CPT/HCPCS: 36415; 80053; 85025; 85652; 86140; 86481; 86704; 86706; 86709; 86803; 87340

== ENCOUNTER 2024-10-16 08:11 | Outpatient (AMB) | payer OTHER, SELFPAY ==
--- NOTE | 2024-10-16 08:18 | MHC.OFFVIS ---
Vital Signs 10/16/24 08:19 Height 5 ft 7 in Weight 212 lb 8.41 oz BMI 33.3 BP 132/56 L Blood Pressure Location Lt brachial Position Sitting Pulse 68 Pulse Source Pulse Oximeter Intake Visit Reasons: Remain on Pred 1 mg EOD/LM Intake Note: Patient presents for follow up on PMR/Prednisone. He was last seen in the office on 08/10/[address] Milian. Systems Librarian Required: No Accompanied by: Spouse Allergies Penicillins [PENICILLINS] Allergy (Intermediate, Verified 10/16/24 08:24) RASH acetaminophen [From Percocet] Adverse Reaction (Intermediate, Verified 10/16/24 08:24) Agitated oxycodone [From Percocet] Adverse Reaction (Intermediate, Verified 10/16/24 08:24) Agitated Medication List - Last Reconciled 10/16/24 by Magdalene Milian MD acetaminophen 500 mg PO QID PRN albuterol-budesonide 90-80 mcg/actuation (Airsupra) 2 inhalations inhalation TID PRN amlodipine (Norvasc) 10 mg PO DAILY aspirin 1 tab PO DAILY atorvastatin 20 mg PO DAILY budesonide-formoterol 160-4.5 mcg/actuation (Symbicort) 2 puffs inhalation BID 30 days dulaglutide (Trulicity) 1.5 mg subcut QWEEK empagliflozin (Jardiance) 25 mg PO QAM fluticasone propionate 50 mcg/actuation 1 spray intranasal DAILY glipizide ER 5 mg PO QAM hydroxyzine HCl 25 mg PO BEDTIME PRN lisinopril 40 mg PO DAILY metformin 1,000 mg PO DAILY naproxen 500 mg PO BID omeprazole 40 mg PO DAILY PRN HPI Comments Details: Patient is a 68-year-old male with 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, diabetes (no A1c in file unsure of control), hyperlipidemia who presents for follow-up of his polymyalgia rheumatica. Interval History: Last seen 08/10/2024 with me. At that time had a long discussion about tapering prednisone. Plan at that time was to continue 2.5 mg of prednisone daily with plans to transition to methotrexate Today patient states that he ran out of his Prednisone about a week ago. Patient states that he has been fine since stopping his prednisone 1 week ago. Denies temporal headache, vision changes, weight loss. Rheumatologic History: Patient diagnosed with polymyalgia rheumatica in 01/2022 after presenting with pain, stiffness, weakness in his proximal muscle groups including his shoulders and his thighs. He was started on 15 mg of prednisone which resolved her symptoms and this was slowly tapered. Discontinued prednisone 10/2021 Restarted 7 mg prednisone 08/2022 and this was tapered off (unsure of the stop date) Prednisone restarted at low dose in 09/2022. Currently on 1 mg prednisone alternate days for the since Nov 2023 Increased to 2.5mg 07/2024 Pred stopped 09/2024 Medication History: Prednisone Started 15mg 01/2022 Discontinued 10/2021 Restarted 05/2022 7mg Discontinued ? 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 Muscle weakness of right upper extremity Muscle weakness of left upper extremity Chest discomfort Left shoulder pain Bilateral hand pain Abnormal colonoscopy snf 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 Polymyalgia rheumatica Gastroesophageal reflux disease Asthma Gout History of high cholesterol Laceration of right hand involving extensor tendon HTN (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) Diabetes Pulmonary nodules Asthma-COPD overlap syndrome Dyspnea on exertion Surgical History Hx of circumcision Status post amputation of finger Hx of colonoscopy Family History Mother Myocardial infarction, Onset Age: 58 Social History Household Members: Spouse Household Members Other:: son Housing: House Alcohol intake: current Alcohol intake frequency: a few times a week Alcohol type: beer Patient Tobacco Use Status: Former Tobacco user Current occupational status: retired Review of Systems Const Details: Review of Systems Constitutional: Denies fever, chills, weight loss ENT: Denies vision changes, eye pain or eye redness, dental caries, dry mouth GI: Denies nausea, vomiting, diarrhea, abdominal pain, change in BM Pulm: Denies SOB, MARCANO, hemoptysis, wheezing Cards: Denies chest pain, palpitations Skin: Denies Raynaud's, rash, nail changes, photosensitivity, ASSISTANT PROGRAM DIRECTOR: Denies headaches, weakness, paresthesias, recurrent falls MSK: as per HPI All other systems reviewed and are unremarkable except noted above Physical Exam Vital Signs: Last Vital Signs Pulse 68 10/16/24 08:19 BP 132/56 L 10/16/24 08:19 BMI result Body Mass Index 33.3 Physical Examination CONSTITUITIONAL Patient alert and cooperative. Well appearing and in no apparent painful distress HEENT Conjunctiva and sclera clear. ?Pupils equal round and reactive to light. ?No lymphadenopathy. No temporal tenderness to palpation. Normal temporal artery pulsations bilaterally. CHEST/RESPIRATORY SYSTEM Normal respiratory effort and able to speak in complete sentences. ?Clear to auscultation bilaterally. ?No crackles, rales, rhonchi, wheezes heard. CARDIAC SYSTEM Regular rate and rhythm. ?S1 and S2 heard no murmurs. ?Radial pulses intact bilaterally MSK Hands: ?Good body component engineer strength bilaterally. Heberden's nodes noted throughout bilateral hands. Tatum's nodes also noted. Healed traumatic amputation to the left 3rd digit. No evidence of synovitis Wrists: ?Full range of motion at the wrists without pain. ?No tenderness to palpation or synovitis noted to the wrists. Elbows: Full range of motion without pain. No tenderness, weakness, swelling, increased warmth or erythema. Shoulders: Full range of motion without pain. No tenderness, weakness, swelling, increased warmth or erythema. Knees: ?Full range of motion. ?No tenderness, swelling, increased warmth or erythema.?No effusion or crepitations SKIN Skin intact without rashes. Results Reviewed Results Reviewed: Laboratory Tests 10/09/24 09:26 WBC 5.1 RBC 5.01 Hgb 15.1 Hct 44.3 Plt Count 258 ESR 6 Sodium 138 Potassium 4.3 Chloride 104 Carbon Dioxide 24 BUN 12 Creatinine 0.89 C-Reactive Protein 0.54 H Assessment & Plan Assessment & Plan (1) Polymyalgia rheumatica: Comment: Prednisone - Started 15mg 01/2022 - Discontinued 10/2021 - Restarted 05/2022 7mg - Discontinued ? - Restarted 09/2022 ?mg - Tapered to 1mg 11/2023 - Stopped 09/2024 Code(s): M35.3 - Polymyalgia rheumatica Category: Medical Plan: #PMR Patient is here for follow-up of PMR. Patient's prednisone was stopped at the pharmacy 1 week ago. Since that time he has been well with no return of stiffness or pain to his shoulders or hips. We will continue to monitor off the prednisone. I believe that there was an element of fear of tapering the prednisone. Reassured the patient that should his symptoms return he should call the office and we will proceed with treatment but for now we will monitor off prednisone. Given his longstanding history of prednisone use I will check a DXA today. TCA 6 months Plan I spent 20 minutes reviewing the record and labs, seeing the patient, discussing results and documenting in the medical record Orders: Orders Complete Blood Count Auto Diff 6 Months M35.3 - Polymyalgia rheumatica C Reactive Protein 6 Months M35.3 - Polymyalgia rheumatica Erythrocyte Sedimentation Rate 6 Months M35.3 - Polymyalgia rheumatica XR DEXA axial skeleton Today M81.0 - Age-related osteoporosis without current pathological fracture, Z79.52 - snf (current) use of systemic steroids Comprehensive Met. Panel 6 Months M35.3 - Polymyalgia rheumatica Medications: Discontinued prednisone Discontinued Reason: Doctor's Order 0.5 mg (1/2 x 1 mg) PO DAILY 90 tabs 1RF M35.3 - Polymyalgia rheumatica Coding Level of Care Code Est Pt Level 3 (51784) Diagnoses Polymyalgia rheumatica M35.3
[2024-10-16 08:19] VITALS: BP 132/56; PULSE 68; BMI 33.3
== END 2024-10-16 08:47 | disposition home or self-care (01) ==
PROVIDERS: PCP Internal Medicine; Visit Provider Student in an Organized Health Care Education/Training Program
DX: M35.3 Polymyalgia rheumatica (principal)
CPT/HCPCS: 99213

== ENCOUNTER → 2024-10-16 08:11 | Outpatient (BNVA) | payer OTHER, SELFPAY | PROVIDERS: PCP Internal Medicine; Visit Provider Student in an Organized Health Care Education/Training Program | DX: M35.3 Polymyalgia rheumatica (principal); M81.0 Age-related osteoporosis without current pathological fracture; Z79.52 Long term (current) use of systemic steroids | CPT/HCPCS: 99212 ==

== ENCOUNTER 2024-10-22 13:37 | Outpatient (AMB) | payer OTHER, SELFPAY ==
--- NOTE | 2024-10-22 13:38 | MHC.OFFVIS ---
Vital Signs 10/22/24 13:39 Height 5 ft 7 in Weight 212 lb 15.465 oz BMI 33.4 BP 100/62 Blood Pressure Location Rt brachial Position Sitting Pulse 66 Pulse Source Monitor Intake Visit Reasons: r/s 08/28/24 1 yr followup w/ekg Clinical Allergist Required: Yes Clinical Allergist Language: Data Manager Name: voice [phone] [id number] Director Of Enrollment: Director Of Enrollment Present Allergies Penicillins [PENICILLINS] Allergy (Intermediate, Verified 10/22/24 13:41) RASH acetaminophen [From Percocet] Adverse Reaction (Intermediate, Verified 10/22/24 13:41) Agitated oxycodone [From Percocet] Adverse Reaction (Intermediate, Verified 10/22/24 13:41) Agitated Medication List - Last Reconciled 10/22/24 by LESLIE Mccauley acetaminophen 500 mg PO QID PRN albuterol-budesonide 90-80 mcg/actuation (Airsupra) 2 inhalations inhalation TID PRN amlodipine (Norvasc) 10 mg PO DAILY aspirin 1 tab PO DAILY atorvastatin 20 mg PO DAILY atorvastatin 40 mg PO DAILY budesonide-formoterol 160-4.5 mcg/actuation (Symbicort) 2 puffs inhalation BID 30 days dulaglutide (Trulicity) mg subcut empagliflozin (Jardiance) 25 mg PO QAM empagliflozin-metformin 12.5-1,000 mg (Synjardy) tabs PO glipizide ER 5 mg PO QAM lisinopril 40 mg PO DAILY HPI HPI r/s 08/28/24 1 yr followup w/ekg: Details: Abimael is a 69-year-old male with past medical history 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, hyperlipidemia, diabetes, asthma, chest discomfort with prior cardiac catheterization showing no significant coronary artery disease who now presents for follow-up. Today he reports that he continues to have episodes of periodic chest pressure and shortness of breath when he does something that requires physical over exertion. He does not get this symptom with normal day-to-day activities. He says his symptoms will resolve in 5-10 minutes if he just sits and relaxes. Overall he says his symptom has lessened since last visit 08/2023. He said it is happening less often. No PND, orthopnea or edema. No palpitations, lightheadedness, presyncope, syncope, falls. Taking all meds as directed. Walks routinely for physical activity. 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 Muscle weakness of right upper extremity Muscle weakness of left upper extremity Chest discomfort Left shoulder pain Bilateral hand pain Abnormal colonoscopy long-term 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 Polymyalgia rheumatica Gastroesophageal reflux disease Asthma Gout History of high cholesterol Laceration of right hand involving extensor tendon HTN (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) Diabetes Pulmonary nodules Asthma-COPD overlap syndrome Dyspnea on exertion Surgical History Hx of circumcision Status post amputation of finger Hx of colonoscopy Family History Mother Myocardial infarction, Onset Age: 58 Social History Household Members: Spouse Household Members Other:: son Housing: House Alcohol intake: current Alcohol intake frequency: a few times a week Alcohol type: beer Patient Tobacco Use Status: Former Tobacco user Current occupational status: retired Review of Systems Const All systems reviewed & are unremarkable except as noted in HPI and below ENT Denies dizziness Card Denies chest pain at rest, Reports chest pain with activity (pressure), Denies rapid heart rate, Denies pedal edema, Denies edema, Denies leg edema, Denies lightheadedness, Denies palpitations, Denies dyspnea, Reports dyspnea on exertion and Denies orthopnea Resp Denies cough, Denies dyspnea and Reports dyspnea on exertion GI Denies hematochezia and Denies change in stool character Musc Denies abnormal gait, Denies limited range of motion, Denies muscle cramps, Denies muscle weakness, Denies numbness, Denies radiating pain into limb, Denies stiffness and Denies tingling Neuro Denies abnormal gait, Denies dizziness, Denies numbness and Denies tingling Endo Denies palpitations Physical Exam Vital Signs: Last Vital Signs Pulse 66 10/22/24 13:39 BP 100/62 10/22/24 13:39 BMI result Body Mass Index 33.4 Const General: cooperative, healthy appearing, comfortable and no acute distress Orientation/consciousness: patient oriented x3 Neck Neck: Yes normal visual inspection Resp Effort & Inspection: normal respiratory effort Auscultation: clear to auscultation bilaterally, no crackles, no rales, no rhonchi and no wheezes Cardio Jugular venous distension: no JVD Rate: regular rate Rhythm: regular rhythm Heart sounds: S1 normal heart sound present, S2 normal heart sound present, no murmurs and no rubs Neuro General: patient oriented x3 Extrem General: Yes normal to inspection, No no pedal edema and No calf tenderness Psych Appearance: grossly normal Mental Status: mental status grossly normal Speech and movement: Normal speech and movement present Office Procedures EKG Details: Today, read by me, sinus rhythm, rate 66, QTC 385 milliseconds [id number], Complete Results Reviewed Results Reviewed: 04/21/23 ETT Protocol: NEO Max HR: 106 BPM 69% of Pred: 153 BPM Max BP: 166/076 mmHG Max Work Load: 8.7 METS Exercise stress test with exercise 7 min 33 sec of Neo protocol, achieving 69% MPHR, 8.7 METs, with fatigue and moderate shortness of breath and request to stop, no chest discomfort, without arrythmia, with blunted chronormotropic and normotensive response to exercise, without EKG changes meeting criteria for ischemia at achieved workload. Test reviewed with Dr Briceño. Referred By: Christiano Briceño Overread By: BEULAH GALLEGOS 12/10/20 Echocardiogram Conclusions: - Essentially normal study Assessment & Plan Assessment & Plan (1) Chest discomfort: Code(s): R07.89 - Other chest pain Category: Medical Plan: History of chest discomfort with prior cardiac catheterization showing no significant CAD. On subsequent visits he reported chest pressure and underwent a exercise stress test last year with 7.5 minutes exercise, moderate shortness of breath, no chest discomfort and no EKG changes of ischemia. He does have a history of asthma/COPD overlap syndrome which can be contributing to his symptom. Today he reports that he will get chest pressure and shortness of breath if he over exerts. If he rests for 5 to 10 minutes his symptoms resolve. Overall his symptom has lessened in the last year. EKG done today showing normal sinus rhythm with no acute ST or T-wave abnormalities, rate 66. He follows with pulmonology. Symptoms are less more likely to be pulmonary related and less likely to be angina. He does have cardiac risk factors that need ongoing modification. [place] blood pressure goal less than 130/85, hemoglobin A1c goal less than 7 and LDL goal less than 70. Labs from 05/23/2024 showed LDL 67. Continue aspirin indefinitely. Continue atorvastatin, amlodipine and lisinopril. Reviewed signs and symptoms of true angina. If he does have increasing symptoms then further cardiac evaluation can be done. Emergency care if ever needed for symptoms. Cardiology follow-up 1 year, sooner if needed. (2) Asthma-COPD overlap syndrome: Code(s): J44.9 - Chronic obstructive pulmonary disease, unspecified Category: Medical Plan: Follows with Dr. Tatum for pulmonology (3) HTN (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): Code(s): I10 - Essential (primary) 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 Category: Medical Plan: Initial blood pressure this visit 100/62, recheck done by me 118/66. Continue amlodipine and lisinopril. Labs done 10/09/2024 showed potassium 4.3, creatinine 0.89. Plan Time spent on chart review, documentation, interview and assessment Coding Level of Care Code Est Pt Level 4 (58296) Complex EM visit Add On G2211 Diagnoses Chest discomfort R07.89 Asthma-COPD overlap syndrome J44.9 HTN (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) I10 CPT Codes EKG - CPT: [id number], Complete ([id number]) Time Spent (min) 28
[2024-10-22 13:39] VITALS: BP 100/62; PULSE 66; BMI 33.4
== END 2024-10-22 14:13 | disposition home or self-care (01) ==
PROVIDERS: PCP Internal Medicine; Visit Provider Nurse Practitioner Family
DX: R07.89 Other chest pain (principal); J44.9 Chronic obstructive pulmonary disease, unspecified; I10 Essential (primary) 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
CPT/HCPCS: 93010; 99214; G2211

== ENCOUNTER → 2024-10-22 13:37 | Outpatient (BNVA) | payer OTHER, SELFPAY | PROVIDERS: PCP Internal Medicine; Visit Provider Nurse Practitioner Family | DX: R07.89 Other chest pain (principal); I10 Essential (primary) 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; J44.9 Chronic obstructive pulmonary disease, unspecified | CPT/HCPCS: 93005; 99212 ==

== ENCOUNTER 2024-12-11 09:52 | Outpatient (REF) | payer OTHER, SELFPAY ==
--- NOTE | ~2024-12-11 | MM_ITS ---
EXAMINATION: DXA BONE DENSITY AXIAL HISTORY: Long-term use of systemic steroids. TECHNIQUE: Jobspot Dual energy absorptiometry (DEXA) of the lumbar spine, total left hip, and femoral neck was performed. COMPARISON: Comparison is made with the prior examination dated 07/25/2020. FINDINGS: The bone mineral density of the lumbar spine is 1.323 with a T-score of 0.9, and a Z-score of 0.8. This represents a BMD change of 2.6% compared to the prior exam. This is statistically significant. The bone mineral density of the left total hip is 1.032 with a T-score of -0.5, and a Z-score of -0.1. This represents BMD change of -4.5% compared to the prior exam. This is statistically significant. The bone mineral density of the left femoral neck is 0.984 with a T-score of -0.7, and a Z-score of 0.2. This represents BMD change of -0.3% compared to the prior exam. MM/XR DEXA axial skeleton IMPRESSION: Based on bone mineral density, and according to World Health Organization (WHO) criteria, the diagnosis is consistent with normal bone mineral density. All bone density values are in grams per centimeter squared (g/cm2). Statistically, 68% of repeat scans fall within 1 SD (+/- 0.010 g/cm2 for AP spine L1-L4) and 1 SD (+/- 0.012 g/cm2 for femur total) FRAX is a trademark of the [employer] [place] for Metabolic Bone Disease, a World Health Organization (WHO) Collaborating Center. Electronically signed by: Eloy Low MD 12/17/2024 11:29 AM [facility]
--- OUTSIDE RECORDS SUMMARY | 2024-12-11 10:28 | XMS_ITS | Encounter Summary ---
Author Organization [employer] Address [address] [place] [address] 7 [place] [address] Care Team Providers Care Bindery Operator Name Role Phone Karla Garza Primary Care Provider [phone] Kang Garvin PharmD Unavailable [phone] Reason for Visit * Reason Comments Med Refill Encounter Details Date Type Department Care Team ([facility] st Contact Info) Description 03/11/2023 Refill [facility] [address] [place], [place] [phone] Karla Garza ANP [address] [place] [address] Cardiovascular event risk Social History Tobacco Use Types Packs/Day Years Used Date Smoking Tobacco: Never Passive Smoke Exposure: Never Smokeless Tobacco: Never Alcohol Use Standard Drinks/Week Comments Yes 0 (1 standard drink = 0.6 oz pur e alcohol) Sex and Gender Information Value Date Recorded Sex Assigned at Male 09/13/2022 10:17 AM EDT Legal Sex Male 10:17 AM EDT Gender Identity Male 09/13/2022 10:17 AM EDT Sexual Orientation Straight 09/13/2022 10 :17 AM EDT documented as of this encounter Plan of Treatment Not on file documented as of this encounter Visit Diagnoses Diagnosis Cardiovascular event risk documented in this encounter Care Teams Bindery Operator Relationship Specialty Start Date End Date Karla Garza ANP [address] [place] [id number] PCP - General Family Medicine 10/05/22 Kang Garvin, PharmD [address] [place] [id number] Pharmacist Internal Medicine 04/26/24 documented as of this encounter
--- OUTSIDE RECORDS SUMMARY | 2024-12-11 10:28 | XMS_ITS | Encounter Summary ---
Author Organization [employer] Address [address] [facility] [address] [place] [address] Care Team Providers Care Pit Furnace Melter Name Role Phone Karla Garza Primary Care Provider [phone] Kang Garvin PharmD Unavailable [phone] Reason for Visit * Reason Comments Med Refill Encounter Details Date Type Department Care Team ([facility] st Contact Info) Description 07/23/2024 Refill [facility] [address] [place], [place] [phone] Karla Garza ANP [address] [place] [address] Type 2 diabetes mellitus with hyperlipidemia ([facility]/HCC) ([facility]) Social History Tobacco Use Types Packs/Day Years Used Date Smoking Tobacco: Never Passive Smoke Exposure: Never Smokeless Tobacco: Never Alcohol Use Standard Drinks/Week Comments Yes 0 (1 standard drink = 0.6 oz pur e alcohol) Housing Stability Answer Date Recorded What is your housing situation today? I have donald mcnamara 08/29/[address] you li ve. Do you have problems with any of the following? None of the above 08/29/2023 Food Insecurity Answer Date Recorded Within the past 12 months, y ou worried that your food would run out before you got money to buy more: Never True 08/29/2023 Within the past 12 months,th e food you bought just didn't last and you didn't have enough money to get more: Never True Transportation Answer Date Recorded In the past 12 months, has l ack of transportation kept you from medical appts, meetings, work or from getting things needed for daily living? No 08/29/2023 Utilities Answer Date Recorded In the past 12 months, has t he electric, gas, oil or water company threatened to shut off services in your home? No 08/29/2023 Depression Answer Date Recorded Patient Health Questionnaire-2 Score 0 03/31/2023 Sex and Gender Information Value Date Recorded Sex Assigned at Male 09/13/2022 10:17 AM EDT Legal Sex Male 10:17 AM EDT Gender Identity Male 09/13/2022 10:17 AM EDT Sexual Orientation Straight 09/13/2022 10 :17 AM EDT documented as of this encounter Plan of Treatment Not on file documented as of this encounter Goals Goal Patient Goal Type Associated Problems Recent Progress Patient-Stated? Author Blood Pressure < 140/90 Blood Pressure 116/60(2024 10:58 AM EST) No Kang Garvin, Nayely Hemoglobin A1c < 7 Result Component 6.3( 9:54 AM EST) No Kang Garvin PharmD documented as of this encounter Visit Diagnoses Diagnosis Type 2 diabetes mellitus with hyperlipidemia (CMS/HCC) (CMS/HCC) documented in this encounter Care Teams Pit Furnace Melter Relationship Specialty Start Date End Date Karla Garza ANP [address] [place] [address] PCP - General Family Medicine 10/05/22 Kang Garvin, ManuelD [address] [place] [address] Pharmacist Internal Medicine 04/26/24 documented as of this encounter
--- OUTSIDE RECORDS SUMMARY | 2024-12-11 10:28 | XMS_ITS | Encounter Summary ---
Author Organization [employer] Address [address] [place] [address] [place] [address] Care Team Providers Care Payroll Director Name Role Phone Karla Garza Primary Care Provider [phone] Kang Garvin PharmD Unavailable [phone] Reason for Visit * Reason Comments Med Refill Encounter Details Date Type Department Care Team ([facility] st Contact Info) Description 03/02/2023 Refill [facility] [address] [place] [address] Karla Garza ANP [address] [place] [address] Type 2 diabetes mellitus with hyperlipidemia (CMS/HCC) Social History Tobacco Use Types Packs/Day Years [...] (CMS/HCC) documented in this encounter Care Teams Payroll Director Relationship Specialty Start Date End Date Karla Garza ANP [address] [place], [place] [phone] PCP - General Family Medicine 10/05/22 Kang Garvin, PharmD [address] [place] [address] Pharmacist Internal Medicine 04/26/24 documented as of this encounter
--- OUTSIDE RECORDS SUMMARY | 2024-12-11 10:28 | XMS_ITS | Encounter Summary ---
Author Organization [employer] Address [address] [place] [address] 7 [place] [address] Care Team Providers Care Rental Sales Associate Name Role Phone Karla Garza Primary Care Provider [phone] Kang Garvin PharmD Unavailable Reason for Visit * Reason Comments Med Change Request Encounter Details Date Type Department Care Team ([facility] st Contact Info) Description 12/03/2022 Refill [facility] MED[facility]INE [address] [place] [address] Karla Garza ANP [address] [place] [address] Type 2 diabetes mellitus with hyperlipidemia (CMS/HCC) [...] Orientation Straight 09/13/2022 10 :17 AM EDT COVID-19 Exposure Response Date Recorded In the last 10 days, have yo u been in contact with someone who was confirmed or suspected to have Coronavirus/COVID-19? No / Unsure 12/03/2022 8:33 AM EST documented as of this encounter Plan of Treatment Not on file documented as of this encounter Visit Diagnoses Diagnosis Type 2 diabetes mellitus with hyperlipidemia (CMS/HCC) (CMS/HCC) documented in this encounter Care Teams Rental Sales Associate Relationship Specialty Start Date End Date Karla Garza ANP [address] [place] [address] PCP - General Family Medicine 10/05/22 Kang Garvin, ManuelD [address] [place] [id number] Pharmacist Internal Medicine 04/26/24 documented as of this encounter
--- OUTSIDE RECORDS SUMMARY | 2024-12-11 10:28 | XMS_ITS | Encounter Summary ---
Author Organization [employer] Address [address] [facility] 7[address] [place] [address] Care Team Providers Care Traveling Inventory Associate Name Role Phone Karla Garza CONSUELO Primary Care Provider [phone] Kang Garvin PharmD Unavailable [phone] Reason for Visit * Reason Comments Med Refill Encounter Details Date Type Department Care Team ([facility] st Contact Info) Description 12/07/2024 Refill [facility] MEDICINE [address] [place], [place] [phone] Kang Garvin, PharmD [address] [place] [address] Type 2 diabetes mellitus with hyperlipidemia ([facility]/HCC) ([facility]) Social History Tobacco Use Types Packs/Day Years Used Date Smoking Tobacco: Never Passive Smoke Exposure: Never Smokeless Tobacco: Never Alcohol Use Standard Drinks/Week Comments Yes 0 (1 standard drink = 0.6 oz pur e alcohol) Depression Answer Date Recorded Patient Health Questionnaire-9 Score 0 11/01/2024 Patient Health Questionnaire-9 Score 0 11/01/2024 Last PHQ-9: Questionnaire Data Not on file 1 01/02/2024 Housing Stability Answer Date Recorded What is [...] Date Recorded Patient Health Questionnaire-2 Score 0 11/01/2024 Internet Access Answer Date Recorded Internet Access Q1 No 10/24/2024 Internet Access Q2 I do not want or need it 10/14 Sex and Gender Information Value Date Recorded [...] Pressure 116/60(2024 10:58 AM EST) No Kang Garvin PharmD Hemoglobin A1c < 7 Result Component 6.3( 9:54 AM EST) No Kang Garvin PharmD documented as of this encounter Visit Diagnoses Diagnosis Type 2 diabetes mellitus with hyperlipidemia (CMS/HCC) (CMS/HCC) documented in this encounter Additional Health Concerns Assessment Noted Time PHQ-9 Depression Total Score: 0 11/01/20 24 9:52 AM EST documented as of this encounter Care Teams Traveling Inventory Associate Relationship Specialty Start Date End Date Karla Garza, CONSUELO [address] [place] [phone] PCP - General Family Medicine 10/05/22 Kang Garvin, ManuelD [address] [place] [address] Pharmacist Internal Medicine 04/26/24 documented as of this encounter
--- OUTSIDE RECORDS SUMMARY | 2024-12-11 10:28 | XMS_ITS | Encounter Summary ---
Author Organization [employer] Address [address] [facility] 7t [place] [address] Care Team Providers Care Financial Aid Manager Name Role Phone Karla Garza Primary Care Provider [phone] Kang Garvin PharmD Unavailable [phone] Reason for Visit * Reason Onset Date Comments Created in error 05/31/2024 Encounter Details Date Type Department Care Team ([facility] st Contact Info) Description 05/31/2024 Telephone [facility] MEDICINE [address] [place] [address] Karla Garza ANP [address] [place] [address] Created in error Social History Tobacco Use Types Packs/Day Years [...] documented as of this encounter Visit Diagnoses Not on filedocumented in this encounter Care Teams Financial Aid Manager Relationship Specialty Start Date End Date Karla Garza ANP [address] [place] [address] PCP - General Family Medicine 10/05/22 Kang Garvin PharmD [address] [place] [address] Pharmacist Internal Medicine 04/26/24 documented as of this encounter
--- OUTSIDE RECORDS SUMMARY | 2024-12-11 10:28 | XMS_ITS | Encounter Summary ---
Author Organization [employer] Address [address] [facility] 7t [place] [address] Care Team Providers Care Cassandra Architect Name Role Phone Karla Garza CONSUELO Primary Care Provider [phone] Kang Garvin PharmD Unavailable Encounter Details Date Type Department Care Team (Latest Contact Info) Description 12/10/2024 Travel Social History Tobacco Use Types Packs/Day Years [...] Diagnoses Not on filedocumented in this encounter Additional Health Concerns Assessment Noted Time PHQ-9 Depression Total Score: 0 11/01/20 24 9:52 AM EST documented as of this encounter Care Teams Cassandra Architect Relationship Specialty Start Date End Date Karla Garza ANP [address] [place] [address] PCP - General Family Medicine 10/05/22 Kang Garvin PharmD [address] [place] [address] Pharmacist Internal Medicine 04/26/24 documented as of this encounter
--- OUTSIDE RECORDS SUMMARY | 2024-12-11 10:28 | XMS_ITS | Encounter Summary ---
Author Organization [employer] Address [address] [facility] 7t [place] [address] Care Team Providers Care Tongue And Quarter Stitcher Name Role Phone Karla Garza Primary Care Provider [phone] Kang Garvin PharmD Unavailable [phone] Reason for Visit * Reason Comments Med Refill Encounter Details Date Type Department Care Team ([facility] st Contact Info) Description 11/20/2023 Refill [facility] MEDICINE [address] [place], [place] [phone] Karla Garza ANP [address] [place] [address] Type 2 diabetes mellitus with hyperlipidemia ([facility]/HCC) Social History Tobacco Use Types Packs/Day Years [...] (CMS/HCC) documented in this encounter Care Teams Tongue And Quarter Stitcher Relationship Specialty Start Date End Date Karla Garza ANP [address] [place] [address] PCP - General Family Medicine 10/05/22 Kang Garvin PharmD [address] [place] [address] Pharmacist Internal Medicine 04/26/24 documented as of this encounter
--- OUTSIDE RECORDS SUMMARY | 2024-12-11 10:28 | XMS_ITS | Encounter Summary ---
Author Organization [employer] Address [address] [place] [address] [place] [address] Care Team Providers Care Trade Recruiter Name Role Phone Karla Garza Primary Care Provider [phone] Kang Garvin PharmD Unavailable [phone] Reason for Visit * Reason Comments Med Refill Encounter Details Date Type Department Care Team ([facility] st Contact Info) Description 02/05/2023 Refill [facility] MEDICINE [address] [place] [address] Karla Garza ANP [address] [place] [address] Type 2 diabetes mellitus with hyperlipidemia (CMS/HCC) [...] (CMS/HCC) documented in this encounter Care Teams Trade Recruiter Relationship Specialty Start Date End Date Karla Garza ANP [address] [place], [place] [phone] PCP - General Family Medicine 10/05/22 Kang Garvin, PharmD [address] [place] [address] Pharmacist Internal Medicine 04/26/24 documented as of this encounter
--- OUTSIDE RECORDS SUMMARY | 2024-12-11 10:28 | XMS_ITS | Clinical Summary ---
Author Organization [employer] Address [address] [place] [address] 7t [place] [address] Care Team Providers Care A R Collections Rep Name Role Phone Karla Garza CONSUELO Primary Care Provider [phone] Kang Garvin PharmD Unavailable [phone] Allergies Active Allergy Reactions Criticality Noted Date Comments Penicillins Hives Oxycodone-Acetaminophen 12/23/2022 Medications albuterol 108 (90 Base) MCG/ACT inhalerIndication s:Mild persistent asthma without complication Inhale 2 puffs every 4 (four) hours if needed for wheezing. 18 g 1 12/03/19 23 Active predniSONE (Deltasone) 1 MG tabletIndications :Rheumatoid Arthritis Take 1 tablet by mouth every other day 11/19/19 23 Active Alcohol Swabs padsIndications:T ype 2 diabetes mellitus with hyperlipidemia (CMS/HCC) ([facility]) Use as needed 100 each 11 12/03/19 23 Active Blood Glucose Monitoring Suppl (FreeStyle Lite) w/Device kitIndications:Ty pe 2 diabetes mellitus with hyperlipidemia (CMS/HCC) ([facility]) 1 each 3 times daily. 1 kit 12/31/19 23 Active FreeStyle lancetsIndication s:Type 2 diabetes mellitus with hyperlipidemia (CMS/HCC) ([facility]) Use 3x/d, dx type 2 diabetes 100 each 11 12/31/19 23 Active glucose blood (FREESTYLE LITE) test stripIndications: Type 2 diabetes mellitus with hyperlipidemia (CMS/HCC) ([facility]) USE TO TEST BLOOD SUGAR 2 OR 3 TIMES DAILY OR MORE NEEDED 100 strip 11 04/03/20 24 Active Symbicort 160-4.5 MCG/ACT inhaler Inhale 2 puffs 2 times daily. 09/14/20 23 Active atorvastatin (Lipitor) 40 MG tabletIndications :Type 2 diabetes mellitus with hyperlipidemia (CMS/HCC) (CMS/HCC) Take 1 tablet (40 mg) by mouth Once per day. 90 tablet 3 04/26/20 24 Active empagliflozin-met FORMIN (Synjardy) 12.5-1000 MGIndications:Typ e 2 diabetes mellitus with hyperlipidemia (CMS/HCC) (CMS/HCC) Take 1 tablet by mouth with breakfast and with evening meal. 180 tablet 3 05/21/20 24 Active lisinopril 40 MG tabletIndications :Primary 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 TAKE 1 TABLET BY MOUTH EVERY DAY IN THE MORNING 90 tablet 1 07/09/20 24 Active amLODIPine (Norvasc) 10 MG tabletIndications :Primary 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 TAKE 1 TABLET BY MOUTH EVERY DAY IN THE MORNING 90 tablet 1 08/22/20 24 Active aspirin (Aspirin Low Dose) 81 MG chewable tabletIndications :Cardiovascular event risk CHEW 1 TABLET BY MOUTH EVERY DAY 90 tablet 1 10/02/20 24 Active Dulaglutide 0.75 MG/0.5ML solution auto-injectorIndi cations:Type 2 diabetes mellitus with hyperlipidemia (CMS/HCC) (CMS/HCC) Inject 0.75 mg under the skin 1 (one) time per week. 2 mL 11 12/10/19 25 Active dulaglutide (Trulicity) 0.75 MG/0.5ML solution pen-injectorIndic ations:Type 2 diabetes mellitus with hyperlipidemia (CMS/HCC) ([facility]) Inject 0.75 mg under the skin 1 (one) time per week. 2 mL 3 06/19/20 24 2024 Discontinued(R eorder (will not trigger notification to Pharmacy)) Active Problems Problem Noted Date Diagnosed Date History of tooth extraction 01/17/2024 Polymyalgia rheumatica 07/18/2020 Mild persistent asthma 10/23/2019 Intermittent claudication 02/12/2019 Obstructive sleep apnea syndrome 02/12/2019 Overview (07/30/2024): Images from the original note were not included. Referred to sleep med for follow-up & CPAP rx'd Chest pain 02/12/2019 Hypertensive disorder 05/31/2018 Type 2 diabetes mellitus with hyperlipidemia ([facility]/HCC) 05/31/2018 Overview (07/30/2024): Lab Results Component Value Date HGBA1C 7.2 (A) 04/23/2024 HGBA1C 8.2 (A) 01/05/2024 HGBA1C 7.6 (A) 09/23/2023 A1c goal </= 7.0 Following w/ CDTM Synjardy 12.5-1000mg BID with meals Trulicity 0.75mg (did not start until returning from vacation Jun 2024) On ACEi, Statin, asa Eye exam: upcoming Oct 25 2024 Polyarticular gout 05/08/2018 Seasonal allergies 05/08/2018 Indigestion 05/08/2018 Hyperlipidemia 01/05/2018 Insomnia 01/05/2018 Obesity (BMI 30-39.9) 01/05/2018 Resolved Problems Problem Noted Date Diagnosed Date Resolved Date Laceration of left thumb wit hout foreign body without damage to nail 06/10/2023 07/30/2024 Assessment & Plan (06/10/2023 5:37 PM EDT): Wound looked slightly purulent but with no erythematous surrounding skin. We had patient soak the wound for 10 min in warm water. The wound was then debrided and cleaned. Wound appeared to be healing well and not infected after debriding. 3 sutures were removed from the wound. Patient was instructed to clean the wound regularly. RTC PRN if wound becomes infected or fails to continue healing. Td shot administered in clinic Encounters Date Type Department Care Team Description 12/10/2024 Travel 12/07/2024 Refill [facility] MEDICINE [address] [place] [phone] Kang Garvin, ManuelD Type 2 diabetes mellitus with hyperlipidemia (CMS/HCC) ([facility]/HCC) 11/01/2024 10:00 AM EST Office Visit [facility] [address] [place] [phone] Karla Garza ANP Primary 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 (Primary Dx); Type 2 diabetes mellitus with hyperlipidemia (CMS/HCC) (CMS/HCC); Obstructive sleep apnea syndrome 11/01/2024 Travel 10/24/2024 Patient Outreach [facility] [address] [place] [phone] Karla Garza ANP Pre-visit Planning (SDOH screening was completed on 12/26/2023) 10/01/2024 Refill [facility] MED[facility] [address] [place] [address] Karla Garza ANP Cardiovascular event risk 09/10/2024 Travel from Last 3 Months Immunizations Name Administration Dates Next Due Hep B, adult 09/10/2024,07/30/2024 Influenza High-dose Quadriva lent Preservative Free 09/23/2023 Influenza injectable quadriv alent IIV4 with preservative 09/12/2018,08/08/2017 Influenza injectable quadriv alent preservative free 12/03/2022,10/29/2021,12/31/2020,08/23,09/05/2015 Influenza, High Dose Seasona l, Preservative Free 07/30/2024 Influenza, Split (incl. shanel fied surface antigen) 09/20/2013 Moderna Covid-19 Vaccine 12+ 10/12/2021,02/19/20 21,01/21/2021 Moderna Covid-19 Vaccine 6+ Bivalent 12/31/2022 Pneumococcal Conjugate PCV 13 10/29/2021 Pneumococcal Conjugate PCV 20 09/23/2023 Pneumococcal Polysaccharide PPSV23 01/26/2018 RSV Bivalent 12/10/2024 TD (adult), 2 Lf tetanus tox oid, preservative free, adsorbed 06/10/2023 Tdap 07/02/2016 Zoster, Recombinant 08/13/2024,05/21/2024 Zoster, live 09/12/2018 Social History Tobacco Use Types Packs/Day Years Used Date Smoking Tobacco: Never Passive Smoke Exposure: Never Smokeless Tobacco: Never Tobacco Cessation:Counseling Given: Not Answered Alcohol Use Standard Drinks/Week Comments Yes 0 [...] Orientation Straight 09/13/2022 10 :17 AM EDT Last Filed Vital Signs Vital Sign Reading Time Taken Comments Blood Pressure 116/60 12/10/2024 10:58 AM EST Pulse 74 12/10/2024 10:58 AM EST Temperature 36.6 ??C (97.8 ??F) 11/01/2024 9:52 AM ES T Respiratory Rate 20 11/01/2024 9:52 AM EST Oxygen Saturation 98% 11/01/2024 9:52 AM EST Inhaled Oxygen Concentration - - Weight 96.6 kg (213 lb) 11/01/2024 9:52 AM EST Height 170.2 cm (5' 7 ) 11/01/2024 9:52 AM EST Body Mass Index 33.36 11/01/2024 9:52 AM EST Plan of Treatment Health Maintenance Due Date Last Done Comments Anal Pap 1955 CT Colonography 1955 Dental Prophylaxis 1955 FIT DNA/Cologuard 1955 FIT 1955 FOBT 1955 Sigmoidoscopy 1955 Eye Exam 1965 Hepatitis C Screening 1973 Hepatitis A Vaccines (1 of 2 - Risk 2-dose series) 1974 Dental X-Ray: Bitewings 03/19/2016 03/18/2015 Dental Oral Exam 07/20/2021 01/16/2021, 10/2017, 03/18/2015 Colonoscopy 03/19/2024 03/19/2021 Colorectal Cancer Screening 03/19/2024 COVID-19 Vaccine ( season) 2024 12/31/2022, 10/12/2021, 02/18/2021, Additional history exists Diabetes: Urine Protein Screening 09/23/2024 09/23/2023, 06/03/2021 SDOH Screening 12/26/2024 12/26/2023 Hepatitis B Vaccines (3 of 3 - Risk 3-dose series) 01/27/2025 09/10/2024, 07/30/2024 Diabetes: Foot Exam 04/23/2025 04/23/2024, 04/23/2024, 04/23/2024, Additional history exists Diabetes: Hemoglobin A1C 05/02/2025 024, 07/30/2024, 04/23/2024, Additional history exists Lipid Panel 05/23/2025 05/23/2024, 09/14, 06/03/2021 Alcohol/Substance Use Screening 11/01/2025 11/01/2024 Depression Screening 11/01/2025 11/01/2024, 11/01/20 24 Tobacco Screening 11/01/2025 11/01/2024 Dental X-Ray: Full Mouth 01/16/2027 01/16/2024, 0503/2015 DTaP/Tdap/Td Vaccines (3 - Td or Tdap) 06/10/2033 06/10/2023, 07/02/2016 Pneumococcal Vaccine: 65+ Years Completed 09/23/2023, 10/29/2021, 01/26/2018 Influenza Vaccine Completed 07/30/2024, , 12/03/2022, Additional history exists Zoster Vaccines Completed 08/13/2024, 070 06/2024, 09/12/2018 RSV Patients and Patients Aged 60 years or older Completed 12/10/2024 HIB Vaccines Aged Out No longer eligi ble based on patient's age to complete this topic HPV Vaccines Aged Out No longer eligi ble based on patient's age to complete this topic IPV Vaccines Aged Out No longer eligi ble based on patient's age to complete this topic Meningococcal Vaccine Aged Out No alon stephani eligible based on patient's age to complete this topic RSV under 20 months Aged Out No longe r eligible based on patient's age to complete this topic Rotavirus Vaccines Aged Out No longer eligible based on patient's age to complete this topic Goals Goal Patient Goal Type Associated Problems Recent Progress Patient-Stated? Author Blood Pressure < 140/90 Blood Pressure 116/60(2024 10:58 AM EST) No Kang Garvin PharmD Hemoglobin A1c < 7 Result Component 6.3( 9:54 AM EST) No Kang Garvin PharmD Procedures Procedure Name Priority Date/Time Associated Diagnosis Comments POCT GLYCATED HEMOGLOBIN, TOTAL Routine 11/01/2024 9:54 AM EST Type 2 diabetes mellitus with hyperlipidemia (CMS/HCC) (CMS/HCC) POCT GLUCOSE Routine 11/01/2024 9:53 AM EST Type 2 diabetes mellitus with hyperlipidemia (CMS/HCC) (CMS/HCC) LIPID PANEL, STANDARD Routine 05/23/2024 9:24 AM EDT PANORAMIC RADIOGRAPHIC IMAGE Routine 01/16/2024 10:30 AM EST ALBUMIN, RANDOM URINE W/CREATININE Routine 09/23/2023 10:03 AM EST Type 2 diabetes mellitus with hyperlipidemia (CMS/HCC) Primary 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 HM COLONOSCOPY Routine 03/19/2021 PERIODIC ORAL EVALUATION - ESTABLISHED PATIENT Routine 01/16/2021 12:00 AM EST DIAGNOSTIC - DIAGNOSTIC IMAGING - INTRAORAL - COMPREHENSIVE SERIES OF RADIOGRAPHIC IMAGES Routine 03/18/2015 12:00 AM EDT from Last 3 Months or Most Recently Relevant to Health Maintenance Results * (ABNORMAL) POCT HGB A1C (11/01/2024 9:54 AM EST) Hemoglobin A1C 6.3(A) 4.0 - 6.0 % QC Media Lot # [id number] Lot# Expiration Date , Blood 11/01/2024 9:54 AM EST Karla Garza ANP POINT OF CARE TEST ENTER/EDIT OR DERABLES Final Result * POCT Glucose (11/01/2024 9:53 AM EST) Glucose Blood, POC 143 60 - 200 mg/dL QC Media Lot # [id number] Lot# Expiration Date Blood Capillary blood specimen / Unknown 11/01/2024 9:53 AM EST Karla Garza ANP POINT OF CARE TEST ENTER/EDIT OR DERABLES Final Result * Lipid Panel, Standard (05/23/2024 9:24 AM EDT) Triglycerides 101 <150 mg/dL [facility] Comment:Desirable Triglyceri de: less than 150 mg/dLBorderline High Triglyceride 150-199 mg/dLHigh Triglyceride: 200-499 mg/dLVery High Triglyceride: greater than or equal to 5OO mg/dL Cholesterol 135 <200 mg/dL [facility] Comment:Desirable Cholestero l: less than 200 mg/dLBorderline High Cholesterol: 200-239 mg/dLHigh Cholesterol: greater than 239 mg/dL LDL Cholesterol Calculated 67 <100 mg/dL [facility] Comment:Desirable LDL: less than 100 mg/dLNear Optimal/Above Optimal LDL: 110- 129 mg/dLBorderline High LDL: 130-159 mg/dLHigh LDL: 160-189 mg/dLVery High LDL: greater than or equal to 190 mg/dL HDL Cholesterol 48 >40 mg/dL [facility] Comment:Desirable HDL: great er than 40 mg/dL Note: This HDL assay may give artificially low results in patients with liver disease. 05/23/2024 9:24 AM EDT 05/23/2024 10:54 AM EDT Karla Garza ANP LAB BLOOD ORDERABLES Final Resul t Performing Organization Address [facility] de Phone Number [facility] [address] [place] [phone] * Albumin, Random Urine W/Creatinine (09/23/2023 10:03 AM EST) Creatinine, Urine 57.91 mg/dL [facility] Microalbumin Urine 7.0 mg/L [facility] Microalbum Creatinine Ratio Ur 12.0 <30 ug/mg cr [facility] Comment:Albumin/Creatinine R atio Reference Ranges: Normal: < 30 ug/mg creatinine Microalbuminuria: 30 - 300 ug/mg creatinineClinical Albuminuria: > 300 ug/mg creatinine Urine (Urine, Random) 09/23/2023 10:03 AM EST 09/23/2023 11:06 AM EST Karla Garza ANP LAB URINE ORDERABLES Final Resul t Performing Organization Address [facility] de Phone Number [facility] [address] [place] [phone] * Hm Colonoscopy (03/19/2021) Colonoscopy Normal Normal Historical Provider HEALTH MAINTENANCE Final Result from Last 3 Months or Most Recently Relevant to Health Maintenance Insurance [facility] STAND ADULT Care Teams A R Collections Rep Relationship Specialty Start Date End Date Karla Garza ANP [address] [place] [address] PCP - General Family Medicine 10/05/22 Kang Garvin, ManuelD [address] [place] [address] Pharmacist Internal Medicine 04/26/24
== END 2024-12-11 09:53 | disposition home or self-care (01) ==
LOC: HO.MAMMO 09:52
PROVIDERS: PCP Nurse Practitioner Primary Care; Visit Provider Student in an Organized Health Care Education/Training Program
DX: M81.0 Age-related osteoporosis without current pathological fracture (principal); Z79.52 Long term (current) use of systemic steroids
CPT/HCPCS: 77080

== ENCOUNTER → 2024-12-11 10:30 | Outpatient (BNV) | payer OTHER, SELFPAY | PROVIDERS: PCP Nurse Practitioner Primary Care; Visit Provider Radiology Diagnostic Radiology | DX: Z13.820 Encounter for screening for osteoporosis (principal); Z79.52 Long term (current) use of systemic steroids | CPT/HCPCS: 77080 ==

== ENCOUNTER 2025-01-02 09:20 | Outpatient (REF) | payer OTHER, SELFPAY ==
--- OUTSIDE RECORDS SUMMARY | 2025-01-02 09:33 | XMS_ITS | Encounter Summary ---
Author Organization [employer] Address [address] [place] [address] 7t [place] [address] Care Team Providers Care Pasteurizing Machine Operator Name Role Phone Karla Garza Primary Care Provider [phone] Kang Garvin PharmD Unavailable [phone] Reason for Visit * Reason Comments Med Refill Encounter Details Date Type Department Care Team (Late st Contact Info) Description 03/11/2023 Refill [facility] [address] [place], [place] [phone] Karla Garza ANP [address] [place] [address] Cardiovascular event risk Social History Tobacco Use [...] as of this encounter Plan of Treatment Upcoming Encounters Date Type Department Care Team (Late st Contact Info) Description 03/01/2025 9:30 AM EDT Office Visit [facility] [address] [place], [place] [phone] Karla Garza ANP [address] [place], [place] [phone] documented as of this encounter Visit Diagnoses Diagnosis Cardiovascular event risk documented in this encounter Care Teams Pasteurizing Machine Operator Relationship Specialty Start Date End Date Karla Garza ANP [address] [place] [address] PCP - General Family Medicine 10/05/22 Kang Garvin, Nayely [address] [place] [address] Pharmacist Internal Medicine 04/26/24 documented as of this encounter
--- OUTSIDE RECORDS SUMMARY | 2025-01-02 09:33 | XMS_ITS | Encounter Summary ---
Author Organization [employer] Address [address] [facility] 7t [place] [address] Care Team Providers Care Geothermal Powerplant Mechanic Name Role Phone Karla Garza CONSUELO Primary Care Provider [phone] Kang Garvin PharmD Unavailable [phone] Reason for Visit * Reason Comments Med Refill Encounter Details Date Type Department Care Team ([facility] st Contact Info) Description 12/07/2024 Refill [facility] MEDICINE [address] [place], [place] [phone] Kang Garvin, PharmD [address] [place] [address] Type 2 diabetes mellitus with hyper[facility]) Social History Tobacco Use Types Packs/Day Years [...] Description 03/01/2025 9:30 AM EDT Office Visit [facility] MEDICINE [address] [place] [address] Karla Garza ANP [address] [place] [address] documented as of this encounter Goals Goal Patient Goal Type Associated Problems Recent Progress Patient-Stated? Author Blood Pressure < 140/90 Blood Pressure 116/60(2024 10:58 AM EST) No Kang Garvin PharmD Hemoglobin A1c < 7 Result Component 6.3( 9:54 AM EST) No Kang Garvin, ManuelD documented as of this encounter Visit Diagnoses Diagnosis Type 2 diabetes mellitus with hyperlipidemia (CMS/HCC) (CMS/HCC) documented in this encounter Additional Health Concerns Assessment Noted Time PHQ-9 Depression Total Score: 0 11/01/20 24 9:52 AM EST documented as of this encounter Care Teams Geothermal Powerplant Mechanic Relationship Specialty Start Date End Date Karla Garza ANP [address] [place] [phone] PCP - General Family Medicine 10/05/22 Kang Garvin, PharmD [address] [place] [address] Pharmacist Internal Medicine 04/26/24 documented as of this encounter
--- OUTSIDE RECORDS SUMMARY | 2025-01-02 09:33 | XMS_ITS | Encounter Summary ---
Author Organization [employer] Address [address] [facility] 7t [place] [address] Care Team Providers Care Mutuel Department Manager Name Role Phone Kalra Garza CONSUELO Primary Care Provider [phone] Kang Garvin PharmD Unavailable [phone] Encounter Details Date Type Department Care Team [...] Description 03/01/2025 9:30 AM EDT Office Visit [facility] MEDICINE [address] [place] [address] Karla Garza ANP [address] [place] [address] documented as of this encounter Goals Goal [...] documented as of this encounter Care Teams Mutuel Department Manager Relationship Specialty Start Date End Date Karla Garza ANP [address] [place] [address] PCP - General Family Medicine 10/05/22 Kang Garvin PharmD [address] [place] [address] Pharmacist Internal Medicine 04/26/24 documented as of this encounter
--- OUTSIDE RECORDS SUMMARY | 2025-01-02 09:33 | XMS_ITS | Encounter Summary ---
Author Organization [employer] Address [address] [facility] 7t [place] [address] Care Team Providers Care Wire Coiner Name Role Phone Roberta Richardson CONSUELO Primary Care Provider [phone] Kang Garvin PharmD Unavailable [phone] Encounter Details Date Type Department Care Team (Late st Contact Info) Description 12/11/2024 Orders Only [facility] External Provider, [facility] Social History Tobacco Use Types Packs/Day Years [...] Description 03/01/2025 9:30 AM EDT Office Visit [facility] MEDICINE 230 [place], [place] [phone] Roberta Richardson ANP [address] [place] [address] documented as of this encounter Goals Goal Patient Goal Type Associated Problems Recent Progress Patient-Stated? Author Blood Pressure < 140/90 Blood Pressure 116/60(2024 10:58 AM EST) No Kang Garvin PharmD Hemoglobin A1c < 7 Result Component 6.3( 9:54 AM EST) No Kang Garvin PharmD documented as of this encounter Procedures Procedure Name Priority Date/Time Associated Diagnosis Comments BD DEXA AXIAL Routine 12/11/2024 10:25 AM EST documented in this encounter Results * BD DEXA Axial (12/11/2024 10:25 AM EST) Anatomical Region Laterality Modality Body Radiographic Sabrina ging 12/11/2024 10:2 5 AM EST Narrative 12/17/2024 11:31 AM EST ? [facility] ? [address] ?[place] [address] ? Mammography Report ? Signed ? Patient: Perla,Abimael L ?MR#: [id number] ?? 978 ? : 1955 ?Acct:[id number] ? Age/Sex: 69 / M ?ADM Date: /28/25 ? Loc: HO.MAMMO ? Attending Dr: Magdalene Milian MD ? Ordering Physician: Magdalene Milian MD ?Results: ? Date of Service: 12/11/24 ?Follow Up: ? Procedure(s): XR DEXA axial skeleton ?? Accession Number(s): [id number] ? cc: Magdalene Milian MD; ROBERTA RICHARDSON NP ? EXAMINATION: ??DXA BONE DENSITY AXIAL ? HISTORY: ??Long-term use of systemic steroids. ? TECHNIQUE: [employer] Dual energy absorptiometry (DEXA) ?? of the lumbar spine, total left hip, and femoral neck was performed. ? COMPARISON: Comparison is made with the prior examination dated ?? 07/25/2020. ? FINDINGS: ? The bone mineral density of the lumbar spine is 1.323 with a T-score of ?? 0.9, and a Z-score of 0.8. ? This represents a BMD change of 2.6% compared to the prior exam. ??This ?? is statistically significant. ? The bone mineral density of the left total hip is 1.032 with a T-score ?? of -0.5, and a Z-score of -0.1. ? This represents BMD change of -4.5% compared to the prior exam. ??This ?? is statistically significant. ? The bone mineral density of the left femoral neck is 0.984 with a ?? T-score of -0.7, and a Z-score of 0.2. ? This represents BMD change of -0.3% compared to the prior exam. ? MM/XR DEXA axial skeleton ?? IMPRESSION: ?? Based on bone mineral density, and according to World Health ?? Organization (WHO) criteria, the diagnosis is consistent with normal ?? bone mineral density. ? All bone density values are in grams per centimeter squared (g/cm2). ?? Statistically, 68% of repeat scans fall within 1 SD (+/- 0.010 g/cm2 ?? for AP spine L1-L4) and 1 SD (+/- 0.012 g/cm2 for femur total) ?? FRAX is a trademark of the [employer]'s ?? [place] for Metabolic Bone Disease, a World Health Organization (WHO) ?? Collaborating Center. ? Electronically signed by: ??Eloy Low MD ??12/17/2024 11:29 AM EST ?? RP ? Dictated By: ?Eloy Low MD ? Signed By: ?<Electronically signed by Eloy Low MD in OV> ?12/17/24 1129 ? DD/ 1025 ? TD/TT: 12/11/24 1045 ? Stamp Clerk: ? Procedure Note Sami, Image - 12/17/2024 [facility] [address] [place] [address] Mammography Report Signed Patient: Abimael Duncan LMR#: [id number] : 5Acct:[id number] Age/Sex: 69 / MADM Date: 12/11/24 Loc: [facility] Attending Dr: Magdalene Milian MD Ordering Physician: Magdalene Milianesults: Date of Service: 12/11/24Follow Up: Procedure(s): XR DEXA axial skeleton Accession Number(s): [id number] cc: Magdalene Milian MD; ROBERTA RICHARDSON NP EXAMINATION: DXA BONE DENSITY AXIAL HISTORY: Long-term use of systemic steroids. TECHNIQUE: [employer] Dual energy absorptiometry (DEXA) of the lumbar spine, total left hip, and femoral neck was performed. COMPARISON: Comparison is made with the prior examination dated 07/25/2020. FINDINGS: The bone mineral density of the lumbar spine is 1.323 with a T-score of 0.9, and a Z-score of 0.8. This represents a BMD change of 2.6% compared to the prior exam. This is statistically significant. The bone mineral density of the left total hip is 1.032 with a T-score of -0.5, and a Z-score of -0.1. This represents BMD change of -4.5% compared to the prior exam. This is statistically significant. The bone mineral density of the left femoral neck is 0.984 with a T-score of -0.7, and a Z-score of 0.2. This represents BMD change of -0.3% compared to the prior exam. MM/XR DEXA axial skeleton IMPRESSION: Based on bone mineral density, and according to World Health Organization (WHO) criteria, the diagnosis is consistent with normal bone mineral density. All bone density values are in grams per centimeter squared (g/cm2). Statistically, 68% of repeat scans fall within 1 SD (+/- 0.010 g/cm2 for AP spine L1-L4) and 1 SD (+/- 0.012 g/cm2 for femur total) FRAX is a trademark of the [employer]'s [place] for Metabolic Bone Disease, a World Health Organization (WHO) Collaborating Center. Electronically signed by: Eloy Low MD 12/17/2024 11:29 AM [facility] Dictated By: Eloy Low MD Signed By: <Electronically signed by Eloy Low MD in OV> 12/17/24 1129 DD/ 1025 TD/TT: 12/11/24 1045 Stamp Clerk: [facility] External Provider IMG DXA PROCEDURES Final Result documented in this encounter Visit Diagnoses Not on filedocumented in this encounter Additional Health Concerns Assessment Noted Time PHQ-9 Depression Total Score: 0 11/01/20 24 9:52 AM EST documented as of this encounter Care Teams Wire Coiner Relationship Specialty Start Date End Date Roberta Richardson ANP [address] [place] [address] PCP - General Family Medicine 10/05/22 Kang Garvin, Nayely [address] [place] [address] Pharmacist Internal Medicine 04/26/24 documented as of this encounter
--- OUTSIDE RECORDS SUMMARY | 2025-01-02 09:33 | XMS_ITS | Encounter Summary ---
Author Organization [employer] Address [address] [place] [address] 7 [place] [address] Care Team Providers Care Refrigeration Plant Cork Insulator Name Role Phone Karla Garza Primary Care Provider [phone] Kang Garvin PharmD Unavailable [phone] Reason for Visit * Reason Comments Med Refill Encounter Details Date Type Department Care Team (Late st Contact Info) Description 03/02/2023 Refill [facility] MEDICINE [address] [place], [place] [phone] Karla Garza ANP [address] [place] [address] Type 2 diabetes mellitus with hyperlipidemia (CMS/HCC) [...] Description 03/01/2025 9:30 AM EDT Office Visit [facility] MEDICINE [address] [place], [place] [phone] Karla Garza ANP [address] [place], [place] [phone] documented as of this encounter Visit Diagnoses Diagnosis Type 2 diabetes mellitus with hyperlipidemia (CMS/HCC) (CMS/HCC) documented in this encounter Care Teams Refrigeration Plant Cork Insulator Relationship Specialty Start Date End Date Karla Garza ANP [address] [place], [place] [phone] PCP - General Family Medicine 10/05/22 Kang Garvin PharmD [address] [place] [address] Pharmacist Internal Medicine 04/26/24 documented as of this encounter
--- OUTSIDE RECORDS SUMMARY | 2025-01-02 09:33 | XMS_ITS | Encounter Summary ---
Author Organization [employer] Address 75 [facility] 7t [place] [address] Care Team Providers Care Roll Forming Supervisor Name Role Phone Karla Garza Primary Care Provider [phone] Kang Garvin PharmD Unavailable [phone] Reason for Visit * Reason Onset Date Comments Created in error 05/31/2024 Encounter Details Date Type Department Care Team ([facility] st Contact Info) Description 05/31/[address] [facility] MEDICINE [address] [place] [address] Karla Garza ANP [address] [place] [address] Created in error Social History Tobacco Use [...] Description 03/01/2025 9:30 AM EDT Office [address] [facility] MEDICINE [address] [place], [place] [phone] Karla Garza ANP [address] [place] [address] documented as of this encounter Goals Goal Patient Goal Type Associated Problems Recent Progress Patient-Stated? Author Blood Pressure < 140/90 Blood Pressure 116/60(2024 10:58 AM EST) No Kang Garvin, Nayely Hemoglobin A1c < 7 Result Component 6.3( 9:54 AM EST) No Kang Garvin PharmD documented as of this encounter Visit Diagnoses Not on filedocumented in this encounter Care Teams Roll Forming Supervisor Relationship Specialty Start Date End Date Karla Garza ANP [address] [place] [address] PCP - General Family Medicine 10/05/22 Kang Garvin, ManuelD [address] [place] [address] Pharmacist Internal Medicine 04/26/24 documented as of this encounter
--- OUTSIDE RECORDS SUMMARY | 2025-01-02 09:33 | XMS_ITS | Encounter Summary ---
Author Organization [employer] Address [address] [place] [address] 7 [place] [address] Care Team Providers Care Sample Puller Name Role Phone Karla Garza Primary Care Provider [phone] Kang Garvin PharmD Unavailable [phone] Reason for Visit * Reason Comments Med Refill Encounter Details Date Type Department Care Team (Late st Contact Info) Description 02/05/2023 Refill [facility] MEDICINE [address] [place], [place] [phone] Karla Garza ANP [address] [place] [address] Type 2 diabetes mellitus with hyperlipidemia (CMS/HCC) [...] Description 03/01/2025 9:30 AM EDT Office Visit [facility] MEDICINE [address] [place], [place] [phone] Karla Garza ANP [address] [place], [place] [phone] documented as of this encounter Visit Diagnoses Diagnosis Type 2 diabetes mellitus with hyperlipidemia (CMS/HCC) (CMS/HCC) documented in this encounter Care Teams Sample Puller Relationship Specialty Start Date End Date Karla Garza ANP [address] [place], [place] [phone] PCP - General Family Medicine 10/05/22 Kang Garvin PharmD [address] [place] [address] Pharmacist Internal Medicine 04/26/24 documented as of this encounter
--- OUTSIDE RECORDS SUMMARY | 2025-01-02 09:33 | XMS_ITS | Encounter Summary ---
Author Organization [employer] Address 75 [facility] 7t [place] [address] Care Team Providers Care Manpower Development Manager Name Role Phone Karla Garza Primary Care Provider [phone] Kang Garvin PharmD Unavailable [phone] Reason for Visit * Reason Comments Med Refill Encounter Details Date Type Department Care Team ([facility] st Contact Info) Description 12/30/2024 Refill [facility] MEDICINE [address] [place], [place] [phone] Karla Garza ANP [address] [place] [address] Primary 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 Social History Tobacco Use Types Packs/Day Years [...] Description 03/01/2025 9:30 AM EDT Office Visit [facility] MEDICINE [address] [place] [address] Karla Garza ANP [address] [place] [address] documented as of this encounter Goals Goal Patient Goal Type Associated Problems Recent Progress Patient-Stated? Author Blood Pressure < 140/90 Blood Pressure 116/60(2024 10:58 AM EST) No Kang Garvin PharmD Hemoglobin A1c < 7 Result Component 6.3( 9:54 AM EST) No Kang Garvin PharmD documented as of this encounter Visit Diagnoses Diagnosis Primary 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 Unspecified essential 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 documented in this encounter Additional Health Concerns Assessment Noted Time PHQ-9 Depression Total Score: 0 11/01/20 24 9:52 AM EST documented as of this encounter Care Teams Manpower Development Manager Relationship Specialty Start Date End Date Karla Garza ANP [address] [place] [address] PCP - General Family Medicine 10/05/22 Kang Garvin PharmD [address] [place] [address] Pharmacist Internal Medicine 04/26/24 documented as of this encounter
--- OUTSIDE RECORDS SUMMARY | 2025-01-02 09:33 | XMS_ITS | Encounter Summary ---
Author Organization [employer] Address [address] [place] [address] 7t [place] [address] Care Team Providers Care Admissions Advisor Name Role Phone Karla Garza Primary Care Provider [phone] Kang Garvin PharmD Unavailable [phone] Reason for Visit * Reason Comments Med Change Request Encounter Details Date Type Department Care Team (Late st Contact Info) Description 12/03/2022 Refill [facility] MEDICINE [address] [place] [address] Karla Garza ANP [address] [place] [address] Type 2 diabetes mellitus with hyperlipidemia ([facility]/HCC) Social History Tobacco Use Types Packs/Day [...] 9:30 AM EDT Office Visit [facility] MEDICINE [address] [place], [place] [phone] Karla Garza ANP [address] [place] [address] documented as of this encounter Visit Diagnoses Diagnosis Type 2 diabetes mellitus with hyperlipidemia (CMS/HCC) (CMS/HCC) documented in this encounter Care Teams Admissions Advisor Relationship Specialty Start Date End Date Karla Garza ANP [address] [place] [address] PCP - General Family Medicine 10/05/22 Kang Garvin, ManuelD [address] [place] [address] Pharmacist Internal Medicine 04/26/24 documented as of this encounter
--- OUTSIDE RECORDS SUMMARY | 2025-01-02 09:33 | XMS_ITS | Clinical Summary ---
Author Organization [employer] Address [address] [place] [address] 7t [place] [address] Care Team Providers Care Condenser Winder Name Role Phone Roberta Richardson CONSUELO Primary Care Provider [phone] Kang Garvin PharmD Unavailable [phone] Allergies Active Allergy Reactions Criticality Noted [...] ype 2 diabetes mellitus with hyperlipidemia (CMS/HCC) ([facility]) Use as needed 100 each 11 12/03/19 23 Active Blood Glucose Monitoring Suppl (FreeStyle Lite) w/Device kitIndications:Ty pe 2 diabetes mellitus with hyperlipidemia (CMS/HCC) ([facility]) 1 each 3 times daily. 1 kit 12/31/19 23 Active FreeStyle lancetsIndication s:Type 2 diabetes mellitus with hyperlipidemia (CMS/HCC) ([facility]) Use 3x/d, dx type 2 diabetes 100 each 11 12/31/19 23 Active glucose blood (FREESTYLE LITE) test stripIndications: Type 2 diabetes mellitus with hyperlipidemia (CMS/HCC) ([facility]) USE TO TEST BLOOD SUGAR 2 OR 3 TIMES DAILY OR MORE NEEDED 100 strip 11 04/03/20 24 Active Symbicort 160-4.5 MCG/ACT inhaler Inhale 2 puffs 2 times daily. 09/14/20 23 Active atorvastatin (Lipitor) 40 MG tabletIndications :Type 2 diabetes mellitus with hyperlipidemia (CMS/HCC) ([facility]) Take 1 tablet (40 mg) by mouth Once per day. 90 tablet 3 04/26/20 24 Active empagliflozin-met FORMIN (Synjardy) 12.5-1000 MGIndications:Typ e 2 diabetes mellitus with hyperlipidemia (CMS/HCC) ([facility]) Take 1 tablet by mouth with breakfast and with evening meal. 180 tablet 3 05/21/20 24 Active amLODIPine (Norvasc) 10 MG tabletIndications :Primary 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 TAKE 1 TABLET BY MOUTH EVERY DAY IN THE MORNING 90 tablet 1 08/22/20 24 Active aspirin (Aspirin Low Dose) 81 MG chewable tabletIndications :Cardiovascular event risk CHEW 1 TABLET BY MOUTH EVERY DAY 90 tablet 1 10/02/20 24 Active Dulaglutide 0.75 MG/0.5ML solution auto-injectorIndi cations:Type 2 diabetes mellitus with hyperlipidemia (CMS/HCC) ([facility]) Inject 0.75 mg under the skin 1 (one) time per week. 2 mL 11 12/10/19 25 Active lisinopril 40 MG tabletIndications :Primary 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 TAKE 1 TABLET BY MOUTH EVERY MORNING 90 tablet 01/01/20 25 Active dulaglutide (Trulicity) 0.75 MG/0.5ML solution pen-injectorIndic ations:Type 2 diabetes mellitus with hyperlipidemia (CMS/HCC) ([facility]) Inject 0.75 mg under the skin 1 (one) time per week. 2 mL 3 06/19/20 24 2024 Discontinued(R eorder (will not trigger notification to Pharmacy)) lisinopril 40 MG tabletIndications :Primary 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 TAKE 1 TABLET BY MOUTH EVERY DAY IN THE MORNING 90 tablet 1 07/09/20 24 2024 Discontinued Active Problems Problem Noted Date Diagnosed Date [...] Encounters Date Type Department Care Team Description 12/30/2024 Refill [facility] [address] [place] [address] Roberta Richardson ANP Primary 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 12/19/2024 Telephone [facility] [address] [place] [address] Evelia Alvarez [place] february recall (Called pt , palmira who answered said she is respossible for his appt agreed to 03/01/25 ) 12/11/2024 Orders Only [facility] External Provider, [facility] 12/10/2024 Travel 12/07/2024 Refill [facility] [address] [place] [address] Kang Garvin, ManuelD Type 2 diabetes mellitus with hyperlipidemia (CMS/HCC) ([facility]/HCC) 11/01/2024 10:00 AM EST Office Visit [facility] [address] [place] [address] Roberta Richardson ANP Primary 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 (Primary Dx); Type 2 diabetes mellitus with hyperlipidemia (CMS/HCC) ([facility]); Obstructive sleep apnea syndrome 11/01/2024 Travel 10/24/2024 Patient Outreach [facility] [address] [place] [address] Roberta Richardson ANP Pre-visit Planning ([facility] screening was completed on 12/26/2023) from Last 3 Months Immunizations Name Administration [...] 11/01/2024 9:52 AM EST Plan of Treatment Upcoming Encounters Date Type Department Care Team (Late st Contact Info) Description 03/01/2025 9:30 AM EDT Office Visit [facility] [address] [place], [place] [phone] Roberta Richardson ANP [address] [place], [place] [phone] Health Maintenance Due Date Last Done Comments [...] 04/23/2024, Additional history exists Diabetes: Hemoglobin A1C 05/02/202511/01/ 024, 07/30/2024, 04/23/2024, Additional history exists Lipid Panel 05/23/2025 05/23/2024, 09/14, 06/03/2021 Alcohol/Substance Use Screening 11/01/2025 11/01/2024 Depression Screening 11/01/2025 11/01/2024, 11/01/20 24 Tobacco Screening 11/01/2025 11/01/2024 Dental X-Ray: Full Mouth 01/16/2027 01/16/2024, 03/2015 DTaP/Tdap/Td Vaccines (3 - Td or Tdap) 06/10/2033 06/10/2023, 07/02/2016 Pneumococcal Vaccine: 50+ Years Completed 09/23/2023, 10/29/2021, 01/26/2018 Influenza Vaccine Completed 07/30/2024, , 12/03/2022, Additional history exists Zoster Vaccines Completed 08/13/2024, 06/2024, 09/12/2018 RSV Patients and Patients Aged [...] DEXA AXIAL Routine 12/11/2024 10:25 AM EST POCT GLYCATED HEMOGLOBIN, TOTAL Routine 11/01/2024 9:54 AM EST Type 2 diabetes mellitus with hyperlipidemia ([facility]/HCC) ([facility]) POCT GLUCOSE Routine 11/01/2024 9:53 AM EST [...] ESTABLISHED PATIENT Routine 01/16/2021 12:00 AM EST INTRAORAL - COMPLETE SERIES OF RADIOGRAPHIC IMAGES Routine 03/18/2015 12:00 AM EDT from Last 3 Months or Most Recently Relevant to Health Maintenance Results * BD DEXA Axial (12/11/2024 10:25 AM EST) Anatomical Region Laterality Modality Body Radiographic Sabrina ging 12/11/2024 10:2 5 AM EST Narrative 12/17/2024 11:31 AM EST ? [facility] [place] ? [address] ?[place] [address] ? Mammography Report ? Signed ? Patient: Perla,Abimael L ?MR#: [id number] ?? [id number] ? : 1955 ?Acct:[id number] ? Age/Sex: 69 / M ?ADM Date: 01/28/25 ? Loc: HO.MAMMO ? Attending Dr: Magdalene Milian MD ? Ordering Physician: Magdalene Milian MD ?Results: ? Date of Service: 12/11/24 ?Follow Up: ? Procedure(s): XR DEXA axial skeleton ?? Accession Number(s): [id number] ? cc: Magdalene Milian MD; ROBERTA RICHARDSON NP ? EXAMINATION: ??DXA BONE DENSITY AXIAL ? HISTORY: ??Long-term use of systemic steroids. ? TECHNIQUE: [employer] Dual energy absorptiometry (DEXA) ?? of the [...] is a trademark of the [employer]'s ?? [place] for Metabolic Bone Disease, a World Health Organization (WHO) ?? Collaborating Center. ? Electronically signed by: ??Eloy Low MD ??12/17/2024 11:29 AM EST ?? RP ? Dictated By: ?Eloy Low MD ? Signed By: ?<Electronically signed by Eloy Low MD in OV> ?12/17/24 1129 ? DD/ 1025 ? TD/TT: 12/11/24 1045 ? Acquisitions Librarian: ? Procedure Note Donotkehindeinterpreter, Image - 12/17/2024 [facility] [address] [place] [address] Mammography Report Signed Patient: Abimael Duncan LMR#: [id number] : 5Acct:[id number] Age/Sex: 69 / MADM Date: 12/11/24 Loc: [facility] Attending Dr: Magdalene Milian MD Ordering Physician: Magdalene Milianesults: Date of Service: 12/11/24Follow Up: Procedure(s): XR DEXA axial skeleton Accession Number(s): [id number] cc: Magdalene Milian MD; ROBERTA RICHARDSON NP EXAMINATION: DXA BONE DENSITY AXIAL HISTORY: Long-term use of systemic steroids. TECHNIQUE: [employer] Dual energy absorptiometry (DEXA) of the lumbar [...] is a trademark of the [employer]'s [place] for Metabolic Bone Disease, a World Health Organization (WHO) Collaborating Center. Electronically signed by: Eloy Low MD 12/17/2024 11:29 AM EST Dictated By: Eloy Low MD Signed By: <Electronically signed by Eloy Low MD in OV> 12/17/24 1129 DD/ 1025 TD/TT: 12/11/24 1045 Acquisitions Librarian: [facility] External Provider IMG DXA PROCEDURES Final Result * (ABNORMAL) POCT HGB A1C (11/01/2024 9:54 AM EST) Hemoglobin A1C 6.3(A) 4.0 - 6.0 % QC Media Lot # [id number] Lot# Expiration Date [id number] Blood 11/01/2024 9:54 AM EST [facility] POINT OF CARE TEST ENTER/EDIT OR DERABLES Final Result * POCT Glucose (11/01/2024 9:53 AM EST) Glucose Blood, POC 143 60 - 200 mg/dL QC Media Lot # [id number] Lot# Expiration Date Blood Capillary blood specimen / Unknown 11/01/2024 9:53 AM EST Roberta Richardson ANP POINT OF CARE TEST ENTER/EDIT OR DERABLES Final Result * Lipid Panel, Standard (05/23/2024 9:24 AM EDT) Triglycerides 101 <150 mg/dL [facility] Comment:Desirable Triglyceri de: less than 150 mg/dLBorderline High Triglyceride 150-199 mg/dLHigh Triglyceride: 200-499 mg/dLVery High Triglyceride: greater than or equal to 5OO mg/dL Cholesterol 135 <200 mg/dL [facility] Comment:Desirable Cholestero l: less than 200 mg/dLBorderline High Cholesterol: 200-239 mg/dLHigh Cholesterol: greater than 239 mg/dL LDL Cholesterol Calculated 67 <100 mg/dL [facility] Comment:Desirable LDL: less than 100 mg/dLNear Optimal/Above Optimal LDL: 110- 129 mg/dLBorderline High LDL: 130-159 mg/dLHigh LDL: 160-189 mg/dLVery High LDL: greater than or equal to 190 mg/dL HDL Cholesterol 48 >40 mg/dL [facility] Comment:Desirable HDL: great er than 40 mg/dL Note: This HDL assay may give artificially low results in patients with liver disease. 05/23/2024 9:24 AM EDT 05/23/2024 10:54 AM EDT Roberta Richardson ANP LAB BLOOD ORDERABLES Final Resul t [facility] [address] [place] [phone] * Albumin, Random Urine W/Creatinine (09/23/2023 10:03 AM EST) Creatinine, Urine 57.91 mg/dL [facility] Microalbumin Urine 7.0 mg/L [facility] Microalbum Creatinine Ratio Ur 12.0 <30 ug/mg cr [facility] Comment:Albumin/Creatinine R atio Reference Ranges: Normal: < 30 ug/mg creatinine Microalbuminuria: 30 - 300 ug/mg creatinineClinical Albuminuria: > 300 ug/mg creatinine Urine (Urine, Random) 09/23/2023 10:03 AM EST 09/23/2023 11:06 AM EST Roberta CORDERO LAB URINE ORDERABLES Final Resul t [facility] [address] [place] [address] [phone] * Colonoscopy (03/19/2021) Colonoscopy Normal Normal Historical Provider HEALTH MAINTENANCE Final Result from Last 3 Months or Most Recently Relevant to Health Maintenance Insurance [facility] MEDICAID STAND ADULT Care Teams Condenser Winder Relationship Specialty Start Date End Date Roberta Richardson ANP [address] [place] [address] PCP - General Family Medicine 10/05/22 Kang Garvin, Nayely [address] [place] [address] Pharmacist Internal Medicine 04/26/24
--- OUTSIDE RECORDS SUMMARY | 2025-01-02 09:33 | XMS_ITS | Encounter Summary ---
Author Organization [employer] Address [address] [facility] 7t [place] [address] Care Team Providers Care Freight Receiver Name Role Phone Karla Garza Primary Care Provider [phone] Kang Garvin PharmD Unavailable [phone] Reason for Visit * Reason Comments Med Refill Encounter Details Date Type Department Care Team ([facility] st Contact Info) Description 07/23/2024 Refill [facility] [address] [place], [place] [phone] Karla Garza ANP [address] [place] [address] Type 2 diabetes mellitus with hyperlipidemia ([facility]/HCC) ([facility]) Social History Tobacco Use Types Packs/Day [...] Description 03/01/2025 9:30 AM EDT Office Visit [facility] [address] [place] [address] Karla Garza ANP [address] [place] [address] documented as of this encounter Goals Goal [...] (CMS/HCC) documented in this encounter Care Teams Freight Receiver Relationship Specialty Start Date End Date Karla Garza ANP [address] [place] [phone] PCP - General Family Medicine 10/05/22 Kang Garvin PharmD [address] [place] [address] [phone] Pharmacist Internal Medicine 04/26/24 documented as of this encounter
--- OUTSIDE RECORDS SUMMARY | 2025-01-02 09:33 | XMS_ITS | Encounter Summary ---
Author Organization [employer] Address [address] [facility] 7t [place] [address] Care Team Providers Care Communicable Disease Specialist Name Role Phone Karla Garza Primary Care Provider [phone] Kang Garvin PharmD Unavailable [phone] Reason for Visit * Reason Comments Med Refill Encounter Details Date Type Department Care Team ([facility] st Contact Info) Description 11/20/2023 Refill [facility] [address] [place], [place] [phone] Karla Garza ANP [address] [place] [address] Type 2 diabetes mellitus with hyperlipidemia ([facility]/HCC) Social History Tobacco Use Types Packs/Day Years [...] Description 03/01/2025 9:30 AM EDT Office Visit [facility] [address] [place] [phone] Karla Garza ANP [address] [place] [address] documented as of this encounter Visit Diagnoses Diagnosis Type 2 diabetes mellitus with hyperlipidemia (CMS/HCC) (CMS/HCC) documented in this encounter Care Teams Communicable Disease Specialist Relationship Specialty Start Date End Date Karla Garza ANP [address] [place] [phone] PCP - General Family Medicine 10/05/22 Kang Garvin, ManuelD [address] [place] [phone] Pharmacist Internal Medicine 04/26/24 documented as of this encounter
--- OUTSIDE RECORDS SUMMARY | 2025-01-02 09:33 | XMS_ITS | Encounter Summary ---
Author Organization [employer] Address [address] [facility] 7t [place] [address] Care Team Providers Care Chairlift Operator Name Role Phone Karla Garza CONSUELO Primary Care Provider [phone] Kang Garvin PharmD Unavailable [phone] Reason for Visit * Reason Onset Date Comments kristan recall 12/19/2024 Called pt , palmira who answered said she is respossible for his appt agreed to 03/01/25 Encounter Details Date Type Department Care Team (Late st Contact Info) Description 12/19/2024 Telephone [facility] [address] [place] [address] [place], [place] february recall (Called pt , palmira who answered said she is respossible for his appt agreed to 03/01/25 ) Social History Tobacco Use Types Packs/Day Years [...] AM EDT documented as of this encounter Miscellaneous Notes * Telephone Encounter - Evelia Alvarez [place] - 12/19/2024 11:54 AM EST Called pt , palmira who answered said she is respossible for his appt agreed to 03/01/25 documented in this encounter Plan of Treatment Upcoming Encounters Date Type Department Care Team (Late st Contact Info) Description 03/01/2025 9:30 AM EDT Office Visit [facility] [address] [place] [address] Karla Garza ANP [address] [place] [address] documented as of this encounter Goals Goal [...] documented as of this encounter Care Teams Chairlift Operator Relationship Specialty Start Date End Date Karla Graza ANP [address] [place] [address] PCP - General Family Medicine 10/05/22 Kang Garvin PharmD [address] [place] [address] Pharmacist Internal Medicine 04/26/24 documented as of this encounter
[2025-01-02 10:14] LABS: MANUAL DIFF FLAG NO
[2025-01-02 10:18] LABS: Basophils Percent Auto 0.3 % (0-2); Eosinophils Absolute Auto 0.2 X10*3/uL (0.0-0.4); Hematocrit 42.6 % (42.0-52.0); Hemoglobin 14.2 g/dl (14.0-18.0); Imm Gran Abs Auto 0.02 X10*3/uL (0.00-0.03); Imm Gran Pct Auto 0.3 % (0.0-0.4); Lymphocytes Absolute Auto 2.5 X10*3/uL (1.2-4.9); Lymphocytes Percent Auto 34.1 % (20-40); Mean Corpuscular HGB Conc 33.3 g/dl (31.0-36.0); Mean Corpuscular Hemoglobin 29.6 pg (27.0-33.0); Mean Corpuscular Volume 88.8 fL (80.0-98.0); Mean Platelet Volume 10.4 fL (9.4-12.4); Monocytes Absolute Auto 0.9 X10*3/uL (0.1-1.2); Monocytes Percent Auto 12.4 % (2-11); Neutrophils Absolute Auto 3.7 x10*3/uL (2.0-8.3); Neutrophils Percent Auto 49.9 % (45-73); Platelet Count 293 X10*3/uL (160-400); Red Cell Distribution Width 12.2 % (11.0-16.0); White Blood Count 7.4 X10*3/uL (4.8-10.8)
[2025-01-02 10:43] LABS: Alanine Aminotransferase 22 U/L (0-40); Albumin Level 4.2 g/dL (3.5-5.0); Alkaline Phosphatase 78 U/L (39-117); Anion Gap 11 (12-20); Aspartate Amino Transferase 21 U/L (5-37); Blood Urea Nitrogen 22 mg/dL (9-16); C Reactive Protein < 0.10 mg/dL (< or = 0.50); Calcium 8.9 mg/dL (8.4-10.2); Carbon Dioxide 28 mmol/L (22-29); Chloride 105 mmol/L (96-108); Estimated Glomerular Filt Rate > 60; Glucose Random 233 mg/dL (60-115); Potassium 4.1 mmol/L (3.3-5.1); Sodium 140 mmol/L (135-145); Total Protein 7.7 g/dL (6.5-8.0)
[2025-01-02 11:03] LABS: Erythrocyte Sedimentation Rate 2 MM/HR (0-15)
== END 2025-01-02 09:21 | disposition home or self-care (01) ==
LOC: HO.10HDL 09:20
PROVIDERS: Visit Provider Student in an Organized Health Care Education/Training Program
DX: M35.3 Polymyalgia rheumatica (principal)
CPT/HCPCS: 36415; 80053; 85025; 85652; 86140

== ENCOUNTER → 2025-01-25 08:20 | Outpatient (BNVA) | payer OTHER, SELFPAY | PROVIDERS: PCP Nurse Practitioner Primary Care; Visit Provider Student in an Organized Health Care Education/Training Program | DX: M35.3 Polymyalgia rheumatica (principal); Z51.81 Encounter for therapeutic drug level monitoring; Z79.631 Long term (current) use of antimetabolite agent; Z79.52 Long term (current) use of systemic steroids | CPT/HCPCS: 99212 ==

== ENCOUNTER 2025-01-25 08:23 | Outpatient (AMB) | payer OTHER, SELFPAY ==
--- OUTSIDE RECORDS SUMMARY | 2025-01-25 08:30 | XMS_ITS | Encounter Summary ---
Author Organization [employer] Address [address] [facility] 7t [place] [address] Care Team Providers Care Security Shift Supervisor Name Role Phone Karla Garza Primary Care Provider [phone] Kang Garvin PharmD Unavailable [phone] Reason for Visit * Reason Comments Med Refill Encounter Details Date Type Department Care Team ([facility] st Contact Info) Description 07/23/2024 Refill [facility] [address] [place], [place] [phone] Karla Garza ANP [address] [place] [address] Type 2 diabetes mellitus with hyperlipidemia ([facility]/HCC) ([facility]) Social History Tobacco Use Types Packs/Day Years [...] 9:30 AM EDT Office Visit [facility] [address] [place] [address] Karla Garza ANP [address] [place] [address] documented as of this encounter Goals Goal [...] (CMS/HCC) documented in this encounter Care Teams Security Shift Supervisor Relationship Specialty Start Date End Date Karla Garza ANP [address] [place] [phone] PCP - General Family Medicine 10/05/22 Kang Garvin PharmD [address] [place] [address] [phone] Pharmacist Internal Medicine 04/26/24 documented as of this encounter
--- OUTSIDE RECORDS SUMMARY | 2025-01-25 08:30 | XMS_ITS | Encounter Summary ---
Author Organization [employer] Address [address] [place] [address] 7t [place] [address] Care Team Providers Care Ground Support Agent Name Role Phone Karla Garza Primary Care Provider [phone] Kang Garvin PharmD Unavailable [phone] Reason for Visit * Reason Comments Med Change Request Encounter Details Date Type Department Care Team (Late st Contact Info) Description 12/03/2022 Refill [facility] [address] [place] [address] Karla Garza ANP [address] [place] [address] Type 2 diabetes mellitus with hyperlipidemia ([facility]/HCC) Social History Tobacco Use Types Packs/Day [...] Description 03/01/2025 9:30 AM EDT Office Visit [facility] [address] [place], [place] [phone] Karla Garza ANP [address] [place] [address] documented as of this encounter Visit Diagnoses Diagnosis Type 2 diabetes mellitus with hyperlipidemia (CMS/HCC) (CMS/HCC) documented in this encounter Care Teams Ground Support Agent Relationship Specialty Start Date End Date Karla Garza ANP [address] [place] [phone] PCP - General Family Medicine 10/05/22 Kang Garvin, ManuelD [address] [place] [phone] Pharmacist Internal Medicine 04/26/24 documented as of this encounter
--- OUTSIDE RECORDS SUMMARY | 2025-01-25 08:30 | XMS_ITS | Encounter Summary ---
Author Organization [employer] Address [address] [facility] 7t [place] [address] Care Team Providers Care Airplane Cover Maker Name Role Phone Karla Garza Primary Care Provider [phone] Kang Garvin PharmD Unavailable [phone] Reason for Visit * Reason Comments Med Refill Encounter Details Date Type Department Care Team ([facility] st Contact Info) Description 12/30/2024 Refill [facility] [address] [place], [place] [phone] Karla Garza ANP [address] [place] [address] Primary 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 Social History Tobacco Use Types [...] Office Visit [facility] MEDICINE [address] [place] [phone] Karla Garza ANP [address] [place] [address] documented as of this encounter Goals Goal [...] documented as of this encounter Care Teams Airplane Cover Maker Relationship Specialty Start Date End Date Karla Garza ANP [address] [place] [phone] PCP - General Family Medicine 10/05/22 Kang Garvin PharmD [address] [place] [phone] Pharmacist Internal Medicine 04/26/24 documented as of this encounter
--- OUTSIDE RECORDS SUMMARY | 2025-01-25 08:30 | XMS_ITS | Encounter Summary ---
Author Organization [employer] Address [address] [place] [address] 7 [place] [address] Care Team Providers Care Risk Prevention Engineer Name Role Phone Karla Garza Primary Care Provider [phone] Kang Garvin PharmD Unavailable [phone] Reason for Visit * Reason Comments Med Refill Encounter Details Date Type Department Care Team (Late st Contact Info) Description 02/05/2023 Refill [facility] [address] [place], [place] [phone] Karla Garza ANP [address] [place] [address] Type 2 diabetes mellitus with hyperlipidemia (CMS/HCC) [...] Description 03/01/2025 9:30 AM EDT Office Visit [facility] [address] [place], [place] [phone] Karla Garza ANP [address] [place], [place] [phone] documented as of this encounter Visit Diagnoses Diagnosis Type 2 diabetes mellitus with hyperlipidemia (CMS/HCC) (CMS/HCC) documented in this encounter Care Teams Risk Prevention Engineer Relationship Specialty Start Date End Date Karla Garza ANP [address] [place], [place] [phone] PCP - General Family Medicine 10/05/22 Kang Garvin PharmD [address] [place] [address] Pharmacist Internal Medicine 04/26/24 documented as of this encounter
--- OUTSIDE RECORDS SUMMARY | 2025-01-25 08:30 | XMS_ITS | Encounter Summary ---
Author Organization [employer] Address [address] [place] [address] 7t [place] [address] Care Team Providers Care Wrist Closer Name Role Phone Karla Garza Primary Care Provider [phone] Kang Garvin PharmD Unavailable [phone] Reason for Visit * Reason Comments Med Refill Encounter Details Date Type Department Care Team (Late st Contact Info) Description 03/11/2023 Refill [facility] [address] [place], [place] [phone] Karla Garza ANP [address] [place] [address] Cardiovascular event risk Social History Tobacco Use [...] Description 03/01/2025 9:30 AM EDT Office Visit [facility] [address] [place], [place] [phone] Karla Garza ANP [address] [place], [place] [phone] documented as of this encounter Visit Diagnoses Diagnosis Cardiovascular event risk documented in this encounter Care Teams Wrist Closer Relationship Specialty Start Date End Date Karla Garza ANP [address] [place] [address] PCP - General Family Medicine 10/05/22 Kang Garvin, Nayely [address] [place] [address] Pharmacist Internal Medicine 04/26/24 documented as of this encounter
--- OUTSIDE RECORDS SUMMARY | 2025-01-25 08:30 | XMS_ITS | Clinical Summary ---
Author Organization [employer] Address [address] [place] [address] [address] [place] [address] Care Team Providers Care Clinical Program Consultant Name Role Phone Roberta Richardson CONSUELO Primary Care Provider [phone] Kang Garvin PharmD Unavailable [phone] Allergies Active Allergy Reactions Criticality Noted Date [...] ype 2 diabetes mellitus with hyperlipidemia (CMS/HCC) ([facility]) Use as needed 100 each 11 12/03/19 23 Active Blood Glucose Monitoring Suppl (FreeStyle Lite) w/Device kitIndications:Ty pe 2 diabetes mellitus with hyperlipidemia (CMS/HCC) ([facility]) 1 each 3 times daily. 1 kit 12/31/19 23 Active FreeStyle lancetsIndication s:Type 2 diabetes mellitus with hyperlipidemia (CMS/HCC) ([facility]) Use 3x/d, dx type 2 diabetes 100 each 11 12/31/19 23 Active glucose blood (FREESTYLE LITE) test stripIndications: Type 2 diabetes mellitus with hyperlipidemia (CMS/HCC) ([facility]) USE TO TEST BLOOD SUGAR 2 OR 3 TIMES DAILY OR MORE NEEDED 100 strip 11 04/03/20 24 Active Symbicort 160-4.5 MCG/ACT inhaler Inhale 2 puffs 2 times daily. 09/14/20 23 Active atorvastatin (Lipitor) 40 MG tabletIndications :Type 2 diabetes mellitus with hyperlipidemia (CMS/HCC) ([facility]) Take 1 tablet (40 mg) by mouth Once per day. 90 tablet 3 04/26/20 24 Active empagliflozin-met FORMIN (Synjardy) 12.5-1000 MGIndications:Typ e 2 diabetes mellitus with hyperlipidemia (CMS/HCC) ([facility]) Take 1 tablet by mouth with breakfast [...] auto-injectorIndi cations:Type 2 diabetes mellitus with hyperlipidemia ([facility]/HCC) ([facility]) Inject 0.75 mg under the skin 1 (one) time per week. 2 mL 11 12/10/19 25 Active lisinopril 40 MG tabletIndications :Primary 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 TAKE 1 TABLET BY MOUTH EVERY MORNING 90 tablet 01/01/20 25 Active lisinopril 40 MG tabletIndications :Primary 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 TAKE 1 TABLET BY MOUTH EVERY DAY IN THE MORNING 90 tablet 1 07/09/20 24 025 Discontinued Active Problems Problem Noted Date Diagnosed [...] Type Department Care Team Description 12/30/2024 Refill [facility] [address] [place] [address] Roberta Richardson ANP Primary 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 12/19/2024 Telephone [facility] [address] [place] [address] Evelia Alvarez [place] february recall (Called pt , palmira who answered said she is respossible for his appt agreed to 03/01/25 ) 12/11/2024 Orders Only [facility] External Provider, [employer] 12/10/2024 Travel 12/07/2024 Refill [facility] [address] [place] [address] Kang Garvin, ManuelD Type 2 diabetes mellitus with hyperlipidemia (CMS/HCC) ([facility]/HCC) 11/01/2024 10:00 AM EST Office Visit [facility] [address] [place], [place] [phone] Roberta Richardson ANP Primary 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 (Primary Dx); Type 2 diabetes mellitus with hyperlipidemia (CMS/HCC) ([facility]/HCC); Obstructive sleep apnea syndrome 11/01/2024 Travel from Last 3 Months Immunizations Name [...] Description 03/01/2025 9:30 AM EDT Office Visit [facility] [address] [place] [address] Roberta Richardson ANP [address] [place] [address] Health Maintenance Due Date Last Done Comments [...] Additional history exists Zoster Vaccines Completed 08/13/2024, 07/0 06/2024, 09/12/2018 RSV Patients and Patients Aged [...] EST Narrative 12/17/2024 11:31 AM EST ? [facility] [place] ? [address] ?[place] [address] ? Mammography Report ? Signed ? Patient: Abimael Duncan ?MR#: [id number] ?? [id number] ? : 1955 ?Acct:[id number] ? Age/Sex: 69 / M ?ADM Date: 12/11/ ? Loc: HO.MAMMO ? Attending Dr: Magdalene Milian MD ? Ordering Physician: Magdalene Milian MD ?Results: ? Date of Service: 12/11/ ?Follow Up: ? Procedure(s): XR DEXA axial skeleton ?? Accession Number(s): [id number] ? cc: Magdalene Milian MD; ROBERTA RICHARDSON NP ? EXAMINATION: ??DXA BONE DENSITY AXIAL ? HISTORY: ??Long-term use of systemic steroids. ? TECHNIQUE: X[place]ala Dual energy absorptiometry (DEXA) ?? of the [...] is a trademark of the [employer]'s ?? [place] for Metabolic Bone Disease, a World Health Organization (WHO) ?? Collaborating Center. ? Electronically signed by: ??Eloy Low MD ??12/17/2024 11:29 AM EST ?? RP ? Dictated By: ?Eloy Low MD ? Signed By: ?<Electronically signed by Eloy Low MD in OV> ?12/17/24 1129 ? DD/ 1025 ? TD/TT: 12/11/24 1045 ? Accounts Payable Bookkeeper: ? Procedure Note Donotuseinterpreter, Image - 12/17/2024 Jackie [facility] [address] [place], [place] [address] Mammography Report Signed Patient: Abimael Duncan LMR#: [id number] : 5Acct:[id number] Age/Sex: 69 / MADM Date: 12/11/24 Loc: [facility].TERESAO Attending Dr: Magdalene Milian MD Ordering Physician: Magdalene Milianesults: Date of Service: 12/11/24Follow Up: Procedure(s): XR DEXA axial skeleton Accession Number(s): [id number] cc: Magdalene Milian MD; ROBERTA RICHARDSON NP EXAMINATION: DXA BONE DENSITY AXIAL HISTORY: Long-term use of systemic steroids. TECHNIQUE: X[place]ala Dual energy absorptiometry (DEXA) of the lumbar [...] is a trademark of the [employer]'s [place] for Metabolic Bone Disease, a World Health Organization (WHO) Collaborating Center. Electronically signed by: Eloy Low MD 12/17/2024 11:29 AM EST RP Dictated By: Eloy Low MD Signed By: <Electronically signed by Eloy Low MD in OV> 12/17/24 1129 DD/ 1025 TD/TT: 12/11/24 1045 Accounts Payable Bookkeeper: [facility] External Provider IMG DXA PROCEDURES Final Result * (ABNORMAL) POCT HGB A1C (11/01/2024 9:54 AM EST) Pathologist [facility] Hemoglobin A1C 6.3(A) 4.0 - 6.0 % QC Media Lot # [id number] Lot# Expiration Date 8161, Blood 11/01/2024 9:54 AM EST Roberta Richardson BANNER POINT OF CARE TEST ENTER/EDIT OR DERABLES Final Result * POCT Glucose (11/01/2024 9:53 AM EST) Pathologist [facility] Glucose Blood, POC 143 60 - 200 mg/dL QC Media Lot # [id number] Lot# Expiration Date , Blood Capillary blood specimen / Unknown 11/01/2024 9:53 AM EST Roberta Richardson [place] POINT OF CARE TEST ENTER/EDIT OR DERABLES Final Result * Lipid Panel, Standard (05/23/2024 9:24 AM EDT) Triglycerides 101 <150 mg/dL [facility] Comment:Desirable Triglyceri de: less than 150 mg/dLBorderline High Triglyceride 150-199 mg/dLHigh Triglyceride: 200-499 mg/dLVery High Triglyceride: greater than or equal to 5OO mg/dL Cholesterol 135 <200 mg/dL [facility] Comment:Desirable Cholestero l: less than 200 mg/dLBorderline High Cholesterol: 200-239 mg/dLHigh Cholesterol: greater than 239 mg/dL LDL Cholesterol Calculated 67 <100 mg/dL [facility] Comment:Desirable LDL: less than 100 mg/dLNear [...] 9:24 AM EDT 05/23/2024 10:54 AM EDT us Roberta Richardson ANP LAB BLOOD ORDERABLES Final Resul t [facility] [address] [place] [phone] * Albumin, Random Urine W/Creatinine (09/23/2023 10:03 AM EST) Creatinine, Urine 57.91 mg/dL [facility] Microalbumin Urine 7.0 mg/L [facility] Microalbum Creatinine Ratio Ur 12.0 <30 ug/mg cr [facility] Comment:Albumin/Creatinine R atio Reference Ranges: Normal: < 30 ug/mg creatinine Microalbuminuria: 30 - 300 ug/mg creatinineClinical Albuminuria: > 300 ug/mg creatinine Urine (Urine, Random) 09/23/2023 10:03 AM EST 09/23/2023 11:06 AM EST us Roberta Richardson ANP LAB URINE ORDERABLES Final Resul t [facility] [address] [place] [phone] [phone] * Colonoscopy (03/19/2021) Colonoscopy Normal Normal us Historical Provider MD HEALTH MAINTENANCE Final Result from Last 3 Months or Most Recently Relevant to Health Maintenance Insurance [facility] [address] [place] [address] [facility] AD[facility] Care Teams Clinical Program Consultant Relationship Specialty Start Date End Date Roberta Richardson ANP [address] [place] [address] PCP - General Family Medicine 10/05/22 Kang Garvin, ManuelD [address] [place] [phone] Pharmacist Internal Medicine 04/26/24
--- OUTSIDE RECORDS SUMMARY | 2025-01-25 08:30 | XMS_ITS | Encounter Summary ---
Author Organization [employer] Address [address] [facility] 7t [place] [address] Care Team Providers Care Pianos And Organs Salesperson Name Role Phone Karla Garza Primary Care Provider Kang Garvin PharmD Unavailable [phone] Reason for Visit * Reason Onset Date Comments Created in error 05/31/2024 Encounter Details Date Type Department Care Team ([facility] st Contact Info) Description 05/31/2024 Telephone [facility] [address] [place] [address] Karla Garza ANP [address] [place] [address] Created in error Social History Tobacco Use [...] 9:30 AM EDT Office Visit [facility] [address] [place], [place] [phone] Karla Garza ANP [address] [place] [phone] documented as of this encounter Goals Goal Patient Goal Type Associated Problems Recent Progress Patient-Stated? Author Blood Pressure < 140/90 Blood Pressure 116/60(2024 10:58 AM EST) No Kang Garvin, Nayely Hemoglobin A1c < 7 Result Component 6.3( 9:54 AM EST) No Kang Garvin PharmD documented as of this encounter Visit Diagnoses Not on filedocumented in this encounter Care Teams Pianos And Organs Salesperson Relationship Specialty Start Date End Date Karla Garza ANP [address] [place] [phone] PCP - General Family Medicine 10/05/22 Kang Garvin, ManuelD [address] [place] [phone] Pharmacist Internal Medicine 04/26/24 documented as of this encounter
--- OUTSIDE RECORDS SUMMARY | 2025-01-25 08:30 | XMS_ITS | Encounter Summary ---
Author Organization [employer] Address [address] [facility] [address]t [place] [address] Care Team Providers Care Cotton Ginner Name Role Phone Karla Garza Primary Care Provider [phone] Kang Garvin PharmD Unavailable [phone] Reason for Visit * Reason Comments Med Refill Encounter Details Date Type Department Care Team ([facility] st Contact Info) Description 11/20/2023 Refill [facility] [address] [place], [place] [phone] Karla Garza ANP [address] [place] [address] Type 2 diabetes mellitus with hyperlipidemia ([facility]/HCC) Social History Tobacco Use Types Packs/Day Years [...] Description 03/01/2025 9:30 AM EDT Office Visit [facility] [address] [place] [phone] Karla Garza ANP [address] [place] [address] documented as of this encounter Visit Diagnoses Diagnosis Type 2 diabetes mellitus with hyperlipidemia (CMS/HCC) (CMS/HCC) documented in this encounter Care Teams Cotton Ginner Relationship Specialty Start Date End Date Karla Garza ANP [address] [place] [phone] PCP - General Family Medicine 10/05/22 Kang Garvin, ManuelD [address] [place] [phone] Pharmacist Internal Medicine 04/26/24 documented as of this encounter
--- NOTE | 2025-01-25 08:31 | A.OFFVIS_ITS ---
Vital Signs 01/25/25 08:35 Height 5 ft 7 in Weight 211 lb 10.3 oz BMI 33.1 BP 120/64 Blood Pressure Location Lt brachial Position Sitting Pulse 65 Pulse Source Pulse Oximeter Pulse Oximetry (%) 95 Oxygen Delivery Method Room Air Intake Visit Reasons: follow up Intake Note: Patient presents for follow up. Reel Slitter Required: Yes Reel Slitter Language: Shrimp Header Services: Reel Slitter Offered & Declined Information Interpreted: non-clinical & clinical Allergies Penicillins [PENICILLINS] Allergy (Intermediate, Verified 01/25/25 08:35) RASH acetaminophen [From Percocet] Adverse Reaction (Intermediate, Verified 01/25/25 08:35) Agitated oxycodone [From Percocet] Adverse Reaction (Intermediate, Verified 01/25/25 08:35) Agitated Medication List - Last Reconciled 01/25/25 by Magdalene Milian MD acetaminophen 500 mg PO QID PRN albuterol-budesonide 90-80 mcg/actuation (Airsupra) 2 inhalations inhalation TID PRN amlodipine (Norvasc) 10 mg PO DAILY aspirin 1 tab PO DAILY atorvastatin 20 mg PO DAILY atorvastatin 40 mg PO DAILY budesonide-formoterol 160-4.5 mcg/actuation (Symbicort) 2 puffs inhalation BID 30 days dulaglutide (Trulicity) mg subcut empagliflozin (Jardiance) 25 mg PO QAM empagliflozin-metformin 12.5-1,000 mg (Synjardy) tabs PO folic acid 1 mg PO DAILY glipizide ER 5 mg PO QAM lisinopril 40 mg PO DAILY methotrexate sodium 15 mg (6 x 2.5 mg) PO QWEEK 90 days prednisone 5 mg PO DAILY HPI Comments Details: Patient is a 68-year-old male with 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, diabetes (no A1c in file unsure of control), hyperlipidemia who presents for follow-up of his polymyalgia rheumatica. Interval History: Last seen patient last seen 10/16/2024 with me. At that time he had recently stopped his prednisone and was doing fine and the plan was to monitor him off prednisone for the time being. Patient contacted the office in December 2024 reporting resumption of symptoms and requesting prednisone. Prednisone taper was prescribed and sooner appointment was made for today Patient reports that after starting the prednisone he had almost immediate improvement in his symptoms. Currently tapered down to 5 mg and is still doing well on the 5 mg. Rheumatologic History: Patient diagnosed with polymyalgia rheumatica in 01/2022 after presenting with pain, stiffness, weakness in his proximal muscle groups including his shoulders and his thighs. He was started on 15 mg of prednisone which resolved her symptoms and this was slowly tapered. Discontinued prednisone 10/2021 Restarted 7 mg prednisone 08/2022 and this was tapered off (unsure of the stop date) Prednisone restarted at low dose in 09/2022. Currently on 1 mg prednisone alternate days for the since Nov 2023 Increased to 2.5mg 07/2024 Pred stopped 09/2024 Prednisone * Started 15mg 01/2022 * Discontinued 10/2021 * Restarted 05/2022 7mg * Discontinued ? 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 Polymyalgia rheumatica Gastroesophageal reflux disease Asthma Gout History of high cholesterol Laceration of right hand involving extensor tendon HTN (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) Diabetes Pulmonary nodules Asthma-COPD overlap syndrome Dyspnea on exertion Surgical History Hx of circumcision Status post amputation of finger Hx of colonoscopy Family History Mother Myocardial infarction, Onset Age: 58 Social History Household Members: Spouse Household Members Other:: son Housing: House Alcohol intake: current Alcohol intake frequency: a few times a week Alcohol type: beer Patient Tobacco Use Status: Former Tobacco user Current occupational status: retired Review of Systems Const Details: Review of Systems Constitutional: Denies fever, chills, weight loss ENT: Denies vision changes, eye pain or eye redness, dental caries, dry mouth GI: Denies nausea, vomiting, diarrhea, abdominal pain, change in BM Pulm: Denies SOB, MARCANO, hemoptysis, wheezing Cards: Denies chest pain, palpitations Skin: Denies Raynaud's, rash, nail changes, photosensitivity, ACUPUNCTURIST: Denies headaches, weakness, paresthesias, recurrent falls MSK: as per HPI All other systems reviewed and are unremarkable except noted above Physical Exam Vital Signs: Last Vital Signs Pulse 65 01/25/25 08:35 BP 120/64 01/25/25 08:35 Pulse Ox 95 01/25/25 08:35 Oxygen Delivery Method Room Air 01/25/25 08:35 BMI result Body Mass Index 33.1 Physical Examination CONSTITUITIONAL Patient alert and cooperative. Well appearing and in no apparent painful distress HEENT Conjunctiva and sclera clear. ?Pupils equal round and reactive to light. ?No lymphadenopathy. No temporal tenderness to palpation. Normal temporal artery pulsations bilaterally. CHEST/RESPIRATORY SYSTEM Normal respiratory effort and able to speak in complete sentences. ?Clear to auscultation bilaterally. ?No crackles, rales, rhonchi, wheezes heard. CARDIAC SYSTEM Regular rate and rhythm. ?S1 and S2 heard no murmurs. 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 Heberden's nodes noted throughout bilateral hands. Tatum's nodes also noted. Healed traumatic amputation to the left 3rd digit. No evidence of synovitis Wrists: ?Full range of motion at the wrists without pain. ?No tenderness to palpation or synovitis noted to the wrists. Elbows: Full range of motion without pain. No tenderness, weakness, swelling, increased warmth or erythema. Shoulders: Full range of motion without pain. No tenderness, weakness, swelling, increased warmth or erythema. Knees: ?Full range of motion. ?No tenderness, swelling, increased warmth or erythema.?No effusion or crepitations SKIN Skin intact without rashes. Results Reviewed Results Reviewed: Laboratory Tests 10/09/24 01/02/25 09:26 09:23 WBC 7.4 RBC 4.80 Hgb 14.2 Hct 42.6 Plt Count 293 ESR 6 2 Sodium 140 Potassium 4.1 Chloride 105 Carbon Dioxide 28 BUN 22 H Creatinine 0.94 Total Bilirubin 1.0 1.0 AST 39 H 21 ALT 28 22 Alkaline Phosphatase 76 78 C-Reactive Protein 0.54 H < 0.10 DEXA 11/2024 FINDINGS: The bone mineral density of the lumbar spine is 1.323 with a T-score of 0.9, and a Z-score of 0.8. This represents a BMD change of 2.6% compared to the prior exam. This is statistically significant. The bone mineral density of the left total hip is 1.032 with a T-score of -0.5, and a Z-score of -0.1. This represents BMD change of -4.5% compared to the prior exam. This is statistically significant. The bone mineral density of the left femoral neck is 0.984 with a T-score of -0.7, and a Z-score of 0.2. Assessment & Plan Assessment & Plan (1) Polymyalgia rheumatica: Comment: Prednisone - Started 15mg 01/2022 - Discontinued 10/2021 - Restarted 05/2022 7mg - Discontinued ? - Restarted 09/2022 ?mg - Tapered to 1mg 11/2023 - Stopped 09/2024 - Restarted 12/2024 Methotrexate started 12/2024 Code(s): M35.3 - Polymyalgia rheumatica Category: Medical Plan: #PMR Patient is a 69-year-old male here today for follow up of his PMR. After his last visit in 11/02/2024 we had planned to monitor him off of prednisolone however in December of 2024 he had a relapse of his symptoms requiring prednisolone. He has had a very prolonged history of Prednisone and so he warrants steroid sparing agents. I discussed methotrexate and Kevzara with the patient and they would like to proceed with the pills 1st. While we are waiting for the methotrexate to work we will continue the prednisone at 5 mg for the next 3 months with plans to taper after that. DEXA checked 11/2024 with normal bone density and no evidence of osteoporosis. 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 Category: Medical Plan: #Long-term Use of Steroids Discussed with patient the risks and benefits of steroid for managing the rheumatic condition Benefits include: - Reduced pain, improved mobility, increased participation in activities, and decreased progression of disease Risks include: - GI upset, potential ultrasound worsening or formation (especially in patients > 65 years old), elevated blood pressure/worsening 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, elevated blood sugar/worsening diabetes control, worsening of bone density, elevated lipids/worsening triglycerides, cataract formation, weight gain Recommended using proton pump inhibitors (PPIs) for the duration of steroid use to reduce the risk of gastric ulcers and vitamin-D daily to reduce the risk of osteoporosis Labs checked: ?A1c, T spot, hepatitis-B and C serologies Pneumocystis jiroveci prophylaxis: ?Patient with risk factors including steroids greater than 50 mg for more than 30 days, age greater than 60 years, and lung involvement from underlying rheumatic disease requires prophylaxis and will be given so (3) Encounter for methotrexate monitoring: Code(s): Z51.81 - Encounter for therapeutic drug level monitoring; Z79.631 - security compliance engineer (current) use of antimetabolite agent Plan: #Long-term Current Use of Methotrexate Discussed with patient the benefits and risks of methotrexate for managing their rheumatic condition Benefits include reduced pain, reduced mortality, maintenance of remission and reduction of flares Risks include oral ulcers, photosensitivity, hepatotoxicity, hematologic toxicity, pneumonitis, flu-like symptoms (especially day after administration), nodulosis, lymphomas ? Limit alcohol and avoid Bactrim ? Monitoring: ?CBC, BMP, LFTs every 3-4 months and hepatitis serologies as needed Plan I spent 32 minutes reviewing the record and labs, seeing the patient, discussing results and documenting in the medical record Medications: New methotrexate sodium 15 mg (6 x 2.5 mg) PO QWEEK 90 days 78 tabs 1RF M35.3 - Polymyalgia rheumatica folic acid 1 mg PO DAILY 90 tabs 1RF M35.3 - Polymyalgia rheumatica Changed From prednisone Take 3 tablets for 10 days then 2 tablets for 10 days then 1 tablet for 40 days 5 mg PO DIRECTED 90 tabs 0RF M35.3 - Polymyalgia rheumatica To prednisone 5 mg PO DAILY 90 tabs 1RF M35.3 - Polymyalgia rheumatica Coding Level of Care Code Est Pt Level 4 (23250) Complex EM visit Add On G2211 Diagnoses Polymyalgia rheumatica M35.3 FPC (current) use of systemic steroids Z79.52 Encounter for methotrexate monitoring Z51.81; Z79.631
--- OUTSIDE RECORDS SUMMARY | 2025-01-25 08:31 | XMS_ITS | Encounter Summary ---
Author Organization [employer] Address [address] [place] [address] 7 [place] [address] Care Team Providers Care Psychiatry Instructor Name Role Phone Karla Garza Primary Care Provider [phone] Kang Garvin PharmD Unavailable [phone] Reason for Visit * Reason Comments Med Refill Encounter Details Date Type Department Care Team (Late st Contact Info) Description 03/02/2023 Refill [facility] [address] [place], [place] [phone] Karla Garza ANP [address] [place] [address] Type 2 diabetes mellitus with hyperlipidemia (CMS/HCC) [...] 9:30 AM EDT Office Visit [facility] [address] [place], [place] [phone] Karla Garza ANP [address] [place], [place] [phone] documented as of this encounter Visit Diagnoses Diagnosis Type 2 diabetes mellitus with hyperlipidemia (CMS/HCC) (CMS/HCC) documented in this encounter Care Teams Psychiatry Instructor Relationship Specialty Start Date End Date Karla Garza ANP [address] [place], [place] [phone] PCP - General Family Medicine 10/05/22 Kang Garvin PharmD [address] [place] [address] Pharmacist Internal Medicine 04/26/24 documented as of this encounter
[2025-01-25 08:35] VITALS: BP 120/64; PULSE 65; O2SAT 95; BMI 33.1
== END 2025-01-25 08:59 | disposition home or self-care (01) ==
PROVIDERS: PCP Nurse Practitioner Primary Care; Visit Provider Student in an Organized Health Care Education/Training Program
DX: M35.3 Polymyalgia rheumatica (principal); Z79.52 Long term (current) use of systemic steroids; Z51.81 Encounter for therapeutic drug level monitoring; Z79.631 Long term (current) use of antimetabolite agent
CPT/HCPCS: 99214; G2211

== ENCOUNTER 2025-03-06 13:32 | Outpatient (AMB) | payer OTHER, SELFPAY ==
--- NOTE | 2025-03-06 13:34 | MHC.OFFVIS ---
Vital Signs 03/06/25 13:35 Height 5 ft 7 in Weight 222 lb BMI 34.8 BP 122/60 Blood Pressure Location Rt brachial Position Sitting Pulse 82 Pulse Source Doppler Pulse Oximetry (%) 96 Oxygen Delivery Method Room Air Intake Visit Reasons: Asthma Web Content Director Required: Yes Web Content Director Name: Deidra Orlando Calhoun Allergies Penicillins [PENICILLINS] Allergy (Intermediate, Verified 03/06/25 13:37) RASH acetaminophen [From Percocet] Adverse Reaction (Intermediate, Verified 03/06/25 13:37) Agitated oxycodone [From Percocet] Adverse Reaction (Intermediate, Verified 03/06/25 13:37) Agitated HPI HPI Asthma: Details: 69-year-old gentleman, former under 20 pack-year smoker, quit 2003 followed for pulmonary nodules, asthma, environmental allergies, and dyspnea on exertion after walking 2-3 blocks.? He tried Xolair, however did not receive significant symptomatic benefit. Patient was continued on Symbicort with Airsupra added and now his symptoms are well controlled. His follow-up CT chest that showed old granulomatous nodules. He denies recent exacerbations. 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 Polymyalgia rheumatica Gastroesophageal reflux disease Asthma Gout History of high cholesterol Laceration of right hand involving extensor tendon HTN (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) Diabetes Pulmonary nodules Asthma-COPD overlap syndrome Dyspnea on exertion Surgical History Hx of circumcision Status post amputation of finger Hx of colonoscopy Family History Mother Myocardial infarction, Onset Age: 58 Social History Household Members: Spouse Household Members Other:: son Housing: House Alcohol intake: current Alcohol intake frequency: a few times a week Alcohol type: beer Patient Tobacco Use Status: Former Tobacco user Current occupational status: retired Review of Systems Const Denies daytime sleepiness, Denies excessive sweating, Denies fatigue, Denies fever(s), Denies lethargy, Denies malaise, Denies night sweats, Denies snoring and Denies weight loss Eyes Denies blurry vision and Denies itchy eyes ENT Denies nasal congestion, Denies post nasal drip, Denies sinus pain, Denies sinus pressure and Denies other ( Thrush) Card Denies chest pain, Denies pedal edema, Denies dyspnea, Denies orthopnea and Denies paroxysmal nocturnal dyspnea Resp Denies cough, Denies hemoptysis, Denies excessive phlegm production, Denies dyspnea, Denies snoring and Denies wheezing GI Denies abdominal pain and Denies heartburn Musc Denies myalgias, Denies arthralgias and Denies joint swelling Skin/Breast Denies rash Neuro Denies memory loss and Denies seizure-like activity Psych Denies abnormal sleep pattern, Denies anxiety and Denies memory loss Endo Denies excessive sweating, Denies fatigue and Denies heat intolerance Ozltan/Lymph Denies easy bruising Aller/Immun Denies itchy eyes, Denies seasonal rhinorrhea and Denies wheezing Physical Exam Vital Signs: Last Vital Signs Pulse 82 03/06/25 13:35 BP 122/60 03/06/25 13:35 Pulse Ox 96 03/06/25 13:35 Oxygen Delivery Method Room Air 03/06/25 13:35 BMI result Body Mass Index 34.8 Const General: no acute distress and alert Nutritional Appearance: not obese Orientation/consciousness: Other orientation findings ( oriented) HEENT Head: Yes atraumatic Eyes General: appearance normal, both eyes and all related structures Sclerae: sclerae normal EOM: EOMs intact bilaterally Neck Neck: Yes supple Lymphatic: no lymphadenopathy noted Resp Effort & Inspection: normal respiratory effort and no use of accessory muscles Auscultation: clear to auscultation bilaterally Cardio Rate: regular rate Rhythm: regular rhythm Heart sounds: no gallops, no murmurs and no rubs Skin General skin exam: other ( warm) Extrem General: No clubbing, No cyanosis and No edema Assessment & Plan Assessment & Plan (1) Asthma-COPD overlap syndrome: Code(s): J44.9 - Chronic obstructive pulmonary disease, unspecified Category: Medical Plan: Well controlled on current regimen of Symbicort and AirSupra. Continue current regimen. Coding Level of Care Code Est Pt Level 3 (44546) Diagnoses Asthma-COPD overlap syndrome J44.9
[2025-03-06 13:35] VITALS: BP 122/60; PULSE 82; O2SAT 96; BMI 34.8
--- OUTSIDE RECORDS SUMMARY | 2025-03-06 16:05 | XMS_ITS | Clinical Summary ---
Author Organization [employer] Address [address] [place] [address] 7t [place] [address] Care Team Providers Care Senior Housekeeper Name Role Phone Roberta Richardson CONSUELO Primary Care Provider Kang Garvin PharmD Unavailable [phone] Allergies Active Allergy Reactions Criticality Noted Date Comments Penicillins Hives Oxycodone-Acetaminophen 12/23/2022 Medications albuterol 108 (90 Base) MCG/ACT inhalerIndications :Mild persistent asthma without complication Inhale 2 puffs every 4 (four) hours if needed for wheezing. 18 g 1 3 Active predniSONE (Deltasone) 1 MG tabletIndications: Rheumatoid Arthritis Take 1 tablet by mouth every other day 3 Active Alcohol Swabs padsIndications:Ty pe 2 diabetes mellitus with hyperlipidemia (CMS/HCC) ([facility]) Use as needed 100 each 11 3 Active Blood Glucose Monitoring Suppl (FreeStyle Lite) w/Device kitIndications:Typ e 2 diabetes mellitus with hyperlipidemia (CMS/HCC) ([facility]) 1 each 3 times daily. 1 kit 3 Active FreeStyle lancetsIndications :Type 2 diabetes mellitus with hyperlipidemia (CMS/HCC) ([facility]) Use 3x/d, dx type 2 diabetes 100 each 11 3 Active glucose blood (FREESTYLE LITE) test stripIndications:T ype 2 diabetes mellitus with hyperlipidemia (CMS/HCC) ([facility]) USE TO TEST BLOOD SUGAR 2 OR 3 TIMES DAILY OR MORE NEEDED 100 strip 11 4 Active Symbicort 160-4.5 MCG/ACT inhaler Inhale 2 puffs 2 times daily. 3 Active atorvastatin (Lipitor) 40 MG tabletIndications: Type 2 diabetes mellitus with hyperlipidemia (CMS/HCC) (CMS/HCC) Take 1 tablet (40 mg) by mouth Once per day. 90 tablet 3 4 Active empagliflozin-metF ORMIN (Synjardy) 12.5-1000 MGIndications:Type 2 diabetes mellitus with hyperlipidemia (CMS/HCC) (CMS/HCC) Take 1 tablet by mouth with breakfast and with evening meal. 180 tablet 3 4 Active amLODIPine (Norvasc) 10 MG tabletIndications: Primary 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 TAKE 1 TABLET BY MOUTH EVERY DAY IN THE MORNING 90 tablet 1 4 Active aspirin (Aspirin Low Dose) 81 MG chewable tabletIndications: Cardiovascular event risk CHEW 1 TABLET BY MOUTH EVERY DAY 90 tablet 1 4 Active Dulaglutide 0.75 MG/0.5ML solution auto-injectorIndic ations:Type 2 diabetes mellitus with hyperlipidemia (CMS/HCC) ([facility]) Inject 0.75 mg under the skin 1 (one) time per week. 2 mL 11 5 Active lisinopril 40 MG tabletIndications: Primary 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 TAKE 1 TABLET BY MOUTH EVERY MORNING 90 tablet 5 Active Active Problems Problem Noted Date Diagnosed Date Tubular adenoma of colon 03/01/2025 Overview (03/01/2025): c-scope 03/19/21, to repeat 1-2 years, TA: no high grade dysplasia or carcinoma; fragments of sessile serrated polyp History of tooth extraction 01/17/2024 Polymyalgia rheumatica [...] Encounters Date Type Department Care Team Description 03/01/2025 9:30 AM EDT Office Visit [address] [address] Roberta Richardson ANP Type 2 diabetes mellitus with hyperlipidemia (CMS/HCC) (CMS/HCC) (Primary Dx); Primary 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; Obstructive sleep apnea syndrome; Polymyalgia rheumatica (CMS/HCC); Tubular adenoma of colon 03/01/[address] [phone] Coni Stewart RN Colonoscopy Results 03/01/2025 Travel 02/28/[address] [phone] Roberta Richardson ANP chartprep 12/30/[address] [phone] Roberta Richardson ANP Primary 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 12/19/2024 Telephone [facility] [address] [place] [address] Evelia Alvarez MA february recall (Called pt , palmira who answered said she is respossible for his appt agreed to 03/01/25 ) 12/11/2024 Orders Only [facility] External Provider, [facility] 12/10/2024 Travel 12/07/2024 Refill [facility] [address] [place], [place] [phone] Kang Garvin, PharmD Type 2 diabetes mellitus with hyperlipidemia ([facility]/HCC) ([facility]/HCC) from Last 3 Months Immunizations Name Administration [...] housing situation today? I have donald mcnamara 03/01/[address] you li ve. Do you have problems with any of the following? None of the above 03/01/2025 Food Insecurity Answer Date Recorded Within the past 12 months, y ou worried that your food would run out before you got money to buy more: Never True 03/01/2025 Within the past 12 months,th e food you bought just didn't last and you didn't have enough money to get more: Never True Transportation Answer Date Recorded In the past 12 months, has l ack of transportation kept you from medical appts, meetings, work or from getting things needed for daily living? No 03/01/2025 Utilities Answer Date Recorded In the past 12 months, has t he electric, gas, oil or water company threatened to shut off services in your home? No 03/01/2025 Depression Answer Date Recorded Patient Health Questionnaire-2 Score 0 11/01/2024 Internet Access Answer Date Recorded Internet Access Q1 Yes 03/01/2025 Internet Access Q2 I do not want or need it 02/12 Sex and Gender Information Value Date Recorded Sex Assigned at Male 09/13/2022 10:17 AM EDT Legal Sex Male 10:17 AM EDT Gender Identity Male 09/13/2022 10:17 AM EDT Sexual Orientation Straight 09/13/2022 10 :17 AM EDT Last Filed Vital Signs Vital Sign Reading Time Taken Comments Blood Pressure 111/71 03/01/2025 9:48 AM EDT Pulse 69 03/01/2025 9:48 AM EDT Temperature 36.6 ??C (97.8 ??F) 11/01/2024 9:52 AM ES T Respiratory Rate 16 03/01/2025 9:48 AM EDT Oxygen Saturation 98% 11/01/2024 9:52 AM EST Inhaled Oxygen Concentration - - Weight 98.4 kg (217 lb) 03/01/2025 9:48 AM EDT Height 170.2 cm (5' 7 ) 03/01/2025 9:48 AM EDT Body Mass Index 33.99 03/01/2025 9:48 AM EDT Plan of Treatment Health Maintenance Due Date Last Done Comments Anal Pap 1955 CT Colonography 1955 Dental Prophylaxis 1955 FIT DNA/Cologuard 1955 FIT 1955 FOBT 1955 Sigmoidoscopy 1955 Hepatitis C Screening 1973 Hepatitis A Vaccines (1 of 2 - Risk 2-dose series) 1974 Dental X-Ray: Bitewings 03/19/2016 03/18/2015 Dental Oral Exam 07/20/2021 01/16/2021, 10/2017, 03/18/2015 Colonoscopy 03/19/2024 03/19/2021 Colorectal Cancer Screening 03/19/2024 COVID-19 Vaccine ( season) 2024 12/31/2022, 10/12/2021, 02/18/2021, Additional history exists Diabetes: Urine Protein Screening 09/23/2024 09/23/2023, 06/03/2021 Hepatitis B Vaccines (3 of 3 - Risk 3-dose series) 01/27/2025 09/10/2024, 07/30/2024 Diabetes: Foot Exam 04/23/2025 04/23/2024, 04/23/2024, 04/23/2024, Additional history exists Lipid Panel 05/23/2025 05/23/2024, 09/14, 06/03/2021 Diabetes: Hemoglobin A1C 08/31/20252 025, 11/01/2024, 07/30/2024, Additional history exists Alcohol/Substance Use Screening 11/01/2025 11/01/2024 Depression Screening 11/01/2025 11/01/2024, 11/01/20 24 Eye Exam 11/02/2025 SDOH Screening 03/01/2026 03/01/2025 Tobacco Screening 03/01/2026 03/01/2025 Dental X-Ray: Full Mouth 01/16/2027 01/16/2024, 0503/2015 [...] Author Blood Pressure < 140/90 Blood Pressure 111/71(2024 9:48 AM EDT) No Kang Garvin PharmD Hemoglobin A1c < 7 Result Component 6.6( 9:52 AM EDT) No Kang Garvin PharmD Procedures Procedure Name Priority Date/Time Associated Diagnosis Comments POCT GLUCOSE Routine 03/01/2025 9:53 AM EDT Type 2 diabetes mellitus with hyperlipidemia (CMS/HCC) ([facility]) POCT GLYCATED HEMOGLOBIN, TOTAL Routine 03/01/2025 9:52 AM EDT Type 2 diabetes mellitus with hyperlipidemia (CMS/HCC) ([facility]) BD DEXA AXIAL Routine 12/11/2024 10:25 AM EST LIPID PANEL, STANDARD Routine 05/23/2024 9:24 AM EDT PANORAMIC RADIOGRAPHIC IMAGE Routine 01/16/2024 10:30 AM EST ALBUMIN, RANDOM URINE W/CREATININE Routine 09/23/2023 10:03 AM EST Type 2 diabetes mellitus with hyperlipidemia ([facility]) Primary 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 HM COLONOSCOPY Routine 03/19/2021 PERIODIC ORAL EVALUATION - ESTABLISHED PATIENT Routine 01/16/2021 12:00 AM EST INTRAORAL - COMPLETE SERIES OF RADIOGRAPHIC IMAGES Routine 03/18/2015 12:00 AM EDT from Last 3 Months or Most Recently Relevant to Health Maintenance Results * POCT Glucose (03/01/2025 9:53 AM EDT) Glucose Blood, POC 112 60 - 200 mg/dL QC Media Lot # [id number] Lot# Expiration Date [id number] Blood Capillary blood specimen / Unknown 03/01/2025 9:53 AM EDT us Roberta Richardson ANP POINT OF CARE TEST ENTER/EDIT OR DERABLES Final Result * (ABNORMAL) POCT HGB A1C (03/01/2025 9:52 AM EDT) Hemoglobin A1C 6.6(A) 4.0 - 6.0 % QC Media Lot # [id number] Lot# Expiration Date [id number] Blood 03/01/2025 9:52 AM EDT us Roberta Richardson ANP POINT OF CARE TEST ENTER/EDIT OR DERABLES Final Result * BD DEXA Axial (12/11/2024 10:25 AM EST) Anatomical Region Laterality Modality Body Radiographic Sabrina ging 12/11/2024 10:2 5 AM EST Narrative 12/17/2024 11:31 AM EST ? [facility] ? [address] ?[place] [address] ? Mammography Report ? Signed ? Patient: Perla,Abimael L ?MR#: [id number] ?? 978 ? : 1955 ?Acct:[id number] ? Age/Sex: 69 / M ?ADM Date: 01/28/25 ? Loc: HO.MAMMO ? Attending Dr: Magdalene Milian MD ? Ordering Physician: Magdalene Milian MD ?Results: ? Date of Service: 12/11/24 ?Follow Up: ? Procedure(s): XR DEXA axial skeleton ?? Accession Number(s): [id number] ? cc: Magdalene Milian MD; ROBERTA RICHARDSON NP ? EXAMINATION: ??DXA BONE DENSITY AXIAL ? HISTORY: ??Long-term use of systemic steroids. ? TECHNIQUE: Pathfire Dual energy absorptiometry (DEXA) ?? of the [...] is a trademark of the [employer]'s ?? [place] [facility] Met[facility] Disease, a World Health Organization (WHO) ?? Collaborating Center. ? Electronically signed by: ??Eloy Low MD ??12/17/2024 11:29 AM EST ?? RP ? Dictated By: ?Eloy Low MD ? Signed By: ?<Electronically signed by Eloy Low MD in OV> ?12/17/24 1129 ? DD/ 1025 ? TD/TT: 12/11/24 1045 ? Breeding Technician: ? Procedure Note Sami, Image - 12/17/2024 [facility] [address] [place] [address] Mammography Report Signed Patient: Abimael Duncan LMR#: [id number] 978 : 5Acct:[id number] Age/Sex: 69 / MADM Date: 12/11/24 Loc: [facility] Attending Dr: Magdalene Milian MD Ordering Physician: Magdalene Milian MDResults: Date of Service: 12/11/24Follow Up: Procedure(s): XR DEXA axial skeleton Accession Number(s): [id number] cc: Magdalene Milian MD; ROBERTA RICHARDSON NP EXAMINATION: DXA BONE DENSITY AXIAL HISTORY: Long-term use of systemic steroids. TECHNIQUE: Pathfire Dual energy absorptiometry (DEXA) of the lumbar [...] of the [employer] [place] [facility] [employer] [facility], a World Health Organization (WHO) Collaborating Center. Electronically signed by: Eloy Low MD 12/17/2024 11:29 AM [facility] Dictated By: Eloy Low MD Signed By: <Electronically signed by Eloy Low MD in OV> 12/17/24 1129 DD/ 1025 TD/TT: 12/11/24 1045 Breeding Technician: [facility] External Provider IMG DXA PROCEDURES Final Result * Lipid Panel, Standard (05/23/2024 9:24 AM EDT) Triglycerides 101 <150 mg/dL [facility] Comment:Desirable Triglyceri de: less than 150 mg/dLBorderline High Triglyceride 150-199 mg/dLHigh Triglyceride: 200-499 mg/dLVery High Triglyceride: greater than or equal to 5OO mg/dL Cholesterol 135 <200 mg/dL [facility] Comment:Desirable Cholestero l: less than 200 mg/dLBorderline High Cholesterol: 200-239 mg/dLHigh Cholesterol: greater than 239 mg/dL LDL Cholesterol Calculated 67 <100 mg/dL [facility] Comment:Desirable LDL: less than 100 mg/dLNear Optimal/Above Optimal LDL: 110- 129 mg/dLBorderline High LDL: 130-159 mg/dLHigh LDL: 160-189 mg/dLVery High LDL: greater than or equal to 190 mg/dL HDL Cholesterol 48 >40 mg/dL [facility] Comment:Desirable HDL: great er than 40 mg/dL Note: This HDL assay may give artificially low results in patients with liver disease. 05/23/2024 9:24 AM EDT 05/23/2024 10:54 AM EDT Roberta Richardson [facility] LAB BLOOD ORDERABLES Final Resul t [facility] [address] [place] [phone] * Albumin, Random Urine W/Creatinine (09/23/2023 10:03 AM EST) Creatinine, Urine 57.91 mg/dL [facility] Microalbumin Urine 7.0 mg/L [facility] Microalbum Creatinine Ratio Ur 12.0 <30 ug/mg cr [facility] Comment:Albumin/Creatinine R atio Reference Ranges: Normal: < 30 ug/mg creatinine Microalbuminuria: 30 - 300 ug/mg creatinineClinical Albuminuria: > 300 ug/mg creatinine Urine (Urine, Random) 09/23/2023 10:03 AM EST 09/23/2023 11:06 AM EST Roberta CORDERO LAB URINE ORDERABLES Final Resul t [facility] [address] [place] [address] [phone] * Colonoscopy (03/19/2021) Colonoscopy Normal Normal Historical Provider HEALTH MAINTENANCE Final Result from Last 3 Months or Most Recently Relevant to Health Maintenance Insurance [facility] STANDARD [facility] LONG-TERM OPTIONS (O D-SNP) DENTAL-[facility] MEDICAID STAND ADULT Care Teams Senior Housekeeper Relationship Specialty Start Date End Date Roberta Richardson ANP [address] [place] [address] PCP - General Family Medicine 10/05/22 Kang Garvin PharmD [address] [place] [address] Pharmacist Internal Medicine 04/26/24
--- OUTSIDE RECORDS SUMMARY | 2025-03-06 16:05 | XMS_ITS | Encounter Summary ---
Author Organization [employer] Address [address] [facility] 7t [place] [address] Care Team Providers Care Technical Solutions Engineer Name Role Phone Karla Garza Primary Care Provider [phone] Kang Garvin PharmD Unavailable [phone] Reason for Visit * Reason Comments Med Refill Encounter Details Date Type Department Care Team ([facility] st Contact Info) Description 07/23/2024 Refill [facility] [address] [place], [place] [phone] Karla Garza ANP [address] [place] [address] Type 2 diabetes mellitus with hyperlipidemia ([facility]/HCC) ([facility]) Social History Tobacco Use Types Packs/Day Years [...] 9:52 AM EDT) No Kang Garvin PharmD documented as of this encounter Visit Diagnoses Diagnosis Type 2 diabetes mellitus with hyperlipidemia (CMS/HCC) (CMS/HCC) documented in this encounter Care Teams Technical Solutions Engineer Relationship Specialty Start Date End Date Karla Garza ANP [address] [place] [address] PCP - General Family Medicine 10/05/22 Kang Garvin PharmD [address] [place] [address] Pharmacist Internal Medicine 04/26/24 documented as of this encounter
--- OUTSIDE RECORDS SUMMARY | 2025-03-06 16:05 | XMS_ITS | Encounter Summary ---
Author Organization [employer] Address [address] [facility] 7t [place] [address] Care Team Providers Care Dairy Management Specialist Name Role Phone Karla Garza CONSUELO Primary Care Provider [phone] Kang Garvin PharmD Unavailable [phone] Reason for Visit * Reason Onset Date Comments Colonoscopy Results 03/01/2025 Encounter Details Date Type Department Care Team (Late st Contact Info) Description 03/01/2025 Telephone [facility] [address] [place] [address] Coni Stewart RN Colonoscopy Results Social History Tobacco Use Types Packs/Day Years [...] encounter Miscellaneous Notes * Telephone Encounter - Coni Stewart RN - 03/01/2025 11:36 AM EDT TC placed to pt and LVM to call back the office in regards to information below ----- Message from Karla Garza sent at 03/01/2025 10:41 AM EDT ----- Hi-can you please let patient know that we obtained the records for his colonoscopy from 2020 and he is actually overdue for repeat. He had a few polyps which were non-cancerous but they were abnormal and recommended repeat in 1 to [address] referral to gastroenterology to repeat. If patient or are concerned, please reassure them that tubular adenomas with low-grade dysplasia aretypically very slow-growing. documented in this encounter Plan of Treatment Not on file documented as of this encounter Goals Goal Patient Goal Type Associated Problems Recent Progress Patient-Stated? Author Blood Pressure < 140/90 Blood Pressure 111/71(2024 9:48 AM EDT) No Kang Garvin, PharmMariela Hemoglobin A1c < 7 Result Component 6.6( 9:52 AM EDT) No Kang Garvin PharmD documented as of this encounter Visit Diagnoses Not on filedocumented in this encounter Additional Health Concerns Assessment Noted Time PHQ-9 Depression Total Score: 0 11/01/20 24 9:52 AM EST documented as of this encounter Care Teams Dairy Management Specialist Relationship Specialty Start Date End Date Karla Garza ANP [address] [place] [address] PCP - General Family Medicine 10/05/22 Kang Garvin PharmD [address] [place] [address] Pharmacist Internal Medicine 04/26/24 documented as of this encounter
--- OUTSIDE RECORDS SUMMARY | 2025-03-06 16:05 | XMS_ITS | Encounter Summary ---
Author Organization [employer] Address [address] [facility] [address] [place] [address] Care Team Providers Care Packaging Materials Inspector Name Role Phone Karla Garza Primary Care Provider [phone] Kang Garvin PharmD Unavailable [phone] Reason for Visit * Reason Comments Med Refill Encounter Details Date Type Department Care Team ([facility] st Contact Info) Description 11/20/2023 Refill [facility] [address] [place], [place] [phone] Karla Garza ANP [address] [place] [address] Type 2 diabetes mellitus with hyperlipidemia ([facility]/HCC) Social History Tobacco Use Types Packs/Day Years [...] (CMS/HCC) documented in this encounter Care Teams Packaging Materials Inspector Relationship Specialty Start Date End Date Karla Garza ANP [address] [place] [address] PCP - General Family Medicine 10/05/22 Kang Garvin PharmD [address] [place] [address] Pharmacist Internal Medicine 04/26/24 documented as of this encounter
--- OUTSIDE RECORDS SUMMARY | 2025-03-06 16:05 | XMS_ITS | Encounter Summary ---
Author Organization [employer] Address [address] [facility] [address] [place] [address] Care Team Providers Care Boat Canvas Maker Installer Name Role Phone Karla Garza Primary Care Provider [phone] Kang Garvin PharmD Unavailable [phone] Reason for Visit * Reason Onset Date Comments Created in error 05/31/2024 Encounter Details Date Type Department Care Team ([facility] st Contact Info) Description 05/31/2024 Telephone [facility] [address] [place] [address] Karla Garza ANP [address] [place] [address] Created in error Social History Tobacco Use [...] on filedocumented in this encounter Care Teams Boat Canvas Maker Installer Relationship Specialty Start Date End Date Karla Garza ANP [address] [place] [address] PCP - General Family Medicine 10/05/22 Kang Garvin PharmD [address] [place] [address] Pharmacist Internal Medicine 04/26/24 documented as of this encounter
--- OUTSIDE RECORDS SUMMARY | 2025-03-06 16:05 | XMS_ITS | Encounter Summary ---
Author Organization [employer] Address [address] [place] [address] 7 [place] [address] Care Team Providers Care Insulation Technician Name Role Phone Karla Garza Primary Care Provider [phone] Kang Garvin PharmD Unavailable [phone] Reason for Visit * Reason Comments Med Change Request Encounter Details Date Type Department Care Team ([facility] st Contact Info) Description 12/03/2022 Refill [facility] MEDICINE [address] [place] [address] Karla Garza ANP [address] [place] [address] Type 2 diabetes mellitus with hyperlipidemia (CMS/HCC) [...] (CMS/HCC) documented in this encounter Care Teams Insulation Technician Relationship Specialty Start Date End Date Karla Garza ANP [address] [place] [address] PCP - General Family Medicine 10/05/22 Kang Garvin, ManuelD [address] [place] [phone] Pharmacist Internal Medicine 04/26/24 documented as of this encounter
--- OUTSIDE RECORDS SUMMARY | 2025-03-06 16:05 | XMS_ITS | Encounter Summary ---
Author Organization [employer] Address [address] [place] [address] [place] [address] Care Team Providers Care Wraparound Facilitator Name Role Phone Karla Garza Primary Care Provider [phone] Kang Garvin PharmD Unavailable [phone] Reason for Visit * Reason Comments Med Refill Encounter Details Date Type Department Care Team ([facility] st Contact Info) Description 02/05/2023 Refill [facility] MEDICINE [address] [place] [address] Karla Garza ANP [address] [place] [address] Type 2 diabetes mellitus with hyperlipidemia (CMS/HCC) [...] (CMS/HCC) documented in this encounter Care Teams Wraparound Facilitator Relationship Specialty Start Date End Date Karla Garza ANP [address] [place], [place] [phone] PCP - General Family Medicine 10/05/22 Kang Garvin, PharmD [address] [place] [address] Pharmacist Internal Medicine 04/26/24 documented as of this encounter
--- OUTSIDE RECORDS SUMMARY | 2025-03-06 16:05 | XMS_ITS | Encounter Summary ---
Author Organization [email or web address] Address [address] [facility] 7t [place] [address] Care Team Providers Care Harbormaster Name Role Phone Karla Garza CONSUELO Primary Care Provider [phone] Kang Garvin PharmD Unavailable [phone] Encounter Details Date Type Department Care Team (Latest Contact Info) Description 03/01/2025 Travel Social History Tobacco Use Types Packs/Day [...] documented as of this encounter Care Teams Harbormaster Relationship Specialty Start Date End Date Karla Garza ANP [address] [place] [address] PCP - General Family Medicine 10/05/22 Kang Garvin PharmD [address] [place] [address] Pharmacist Internal Medicine 04/26/24 documented as of this encounter
--- OUTSIDE RECORDS SUMMARY | 2025-03-06 16:05 | XMS_ITS | Encounter Summary ---
Author Organization [employer] Address [address] [place] [address] 7 [place] [address] Care Team Providers Care Full Time Paramedic Name Role Phone Karla Garza Primary Care Provider [phone] Kang Garvin PharmD Unavailable [phone] Reason for Visit * Reason Comments Med Refill Encounter Details Date Type Department Care Team ([facility] st Contact Info) Description 03/11/2023 Refill [facility] [address] [place], [place] [phone] Karla Garza ANP [address] [place] [address] Cardiovascular event risk Social History Tobacco Use [...] risk documented in this encounter Care Teams Full Time Paramedic Relationship Specialty Start Date End Date Karla Garza ANP [address] [place] [id number] PCP - General Family Medicine 10/05/22 Kang Garvin, PharmD [address] [place] [phone] Pharmacist Internal Medicine 04/26/24 documented as of this encounter
--- OUTSIDE RECORDS SUMMARY | 2025-03-06 16:05 | XMS_ITS | Encounter Summary ---
Author Organization [employer] Address [address] [facility] 7t [place] [address] Care Team Providers Care Automatic Shirring Machine Operator Name Role Phone Karla Garza Primary Care Provider [phone] Kang Garvin PharmD Unavailable [phone] Reason for Referral * Consultation (Routine) - Closed Specialty Diagnoses / Procedures Referred By Cindy xie Referred To Contact Gastroenterology Diagnoses Tubular adenoma of colon Karla Garza ANP [address] [place] [address] Phone: tel: fax: [facility] Referral ID Status Reason Start Date Expiration Date V isits Requested Visits Authorized [id number] Closed Specialty Services Required 03/01/2025 03/01/2026 1 1 Reason for Visit * Reason Comments Diabetes Hypertension Encounter Details Date Type Department Care Team (Latest Contact Info) Description 03/01/2025 9:30 AM EDT Office Visit [facility] MEDICINE [address] [place] [address] Karla Garza ANP [address] [place], [place] [phone] Type 2 diabetes mellitus with hyperlipidemia (CMS/HCC) (CMS/HCC) (Primary Dx); Primary 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; Obstructive sleep apnea syndrome; Polymyalgia rheumatica (CMS/HCC); Tubular adenoma of colon Social History Tobacco Use Types Packs/Day Years [...] AM EDT documented as of this encounter Last Filed Vital Signs Vital Sign Reading Time Taken Comments Blood Pressure 111/71 03/01/2025 9:48 AM EDT Pulse 69 03/01/2025 9:48 AM EDT Temperature - - Respiratory Rate 16 03/01/2025 9:48 AM EDT Oxygen Saturation - - Inhaled Oxygen Concentration - - Weight 98.4 kg (217 lb) 03/01/2025 9:48 AM EDT Height 170.2 cm (5' 7 ) 03/01/2025 9:48 AM EDT Body Mass Index 33.99 03/01/2025 9:48 AM EDT documented in this encounter Progress Notes * CONSUELO Shaw - 03/01/2025 9:30 AM EDT Subjective Patient ID: Abimael Duncan is a 69 y.o. male who presents for Diabetes and Hypertension. HPI Follows / [facility] Rheum for PMR, was off prednisone for a few mos but has recurrence of sx and was tapered back to 5mg on which he remains. Also on methotrexate. DEXA 11/2024 Follows w/ Kang PharmD for CDTM DM He follows with pulmonary at [facility] Dr. Tatum with CT every 6 months for lung nodules, asthma and dyspnea on exertion. On Xolair w/ good effect. Lab Results Component Value Date HGBA1C 6.6 (A) 03/01/2025 HGBA1C 6.3 (A) 11/01/2024 HGBA1C 7.3 (A) 07/30/2024 DM: doing well, denies hypoglycemia HTN: on amlodipine 10mg, lisinopril 40mg Eye exam: 10/2024 CRC screening, last in 2020 - unsure when due for repeat Review of Systems Constitutional: Negative for chills and fever. HENT: Negative for sore throat. Respiratory: Negative for cough and shortness of breath. Cardiovascular: Negative for chest pain. Gastrointestinal: Negative for constipation and diarrhea. Endocrine: Negative for polydipsia, polyphagia and polyuria. Genitourinary: Negative for dysuria. Neurological: Negative for weakness. Psychiatric/Behavioral: Negative for sleep disturbance. Objective BP 111/71 (BP Location: Right arm, Patient Position: Sitting, BP Cuff Size: Large adult) Pulse 69 Resp 16 Ht 5' 7 (1.702 m) Wt 217 lb (98.4 kg) BMI 33.99 kg/m?? Physical Exam Constitutional: General: He is not in acute distress. Appearance: Normal appearance. He is not ill-appearing. HENT: Head: Normocephalic and atraumatic. Eyes: Extraocular Movements: Extraocular movements intact. Pupils: Pupils are equal, round, and reactive to light. Cardiovascular: Rate and Rhythm: Normal rate and regular rhythm. Heart sounds: No murmur heard. Pulmonary: Effort: Pulmonary effort is normal. No accessory muscle usage or respiratory distress. Musculoskeletal: Right lower leg: No edema. Left lower leg: No edema. Neurological: Mental Status: He is alert and oriented to person, place, and time. Mental status is at baseline. Cranial Nerves: No cranial nerve deficit. Gait: Gait normal. Psychiatric: Mood and Affect: Mood normal. Behavior: Behavior normal. Assessment/Plan Diagnoses and all orders for this visit: Type 2 diabetes mellitus with hyperlipidemia ([facility]) ([facility]) Lab Results Component Value Date HGBA1C 6.6 (A) 03/01/2025 Doing well, A1c stable. No change to plan. Continue Synjardy 12.5-1000 twice daily On statin, ASA, ACEI Eye exam 10/2024 eye and LASIK with [facility], will request Foot exam due at follow-up - POCT Glucose - POCT HGB A1C - Lipid Panel, Standard; Future - Comprehensive Metabolic Panel; Future - Albumin, Random Urine W/Creatinine; Future Primary 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 At/near goal today, </= 130/80. Continue to encourage low salt diet, regular exercise, home BP monitoring, compliance with medications. Call clinic if BP is frequently >150/90 Go to ED/call 911 if > 170/100 and having sx such as SOW, visual changes, chest pain, SOB Last renal function: Lab Results Component Value Date GLUCOSE 177 (H) 09/23/2023 NA 141 09/23/2023 K 4.2 09/23/2023 CO2 29 09/23/2023 CL 106 09/23/2023 BUN 20 (H) 09/23/2023 CREATININE 1.04 09/23/2023 EGFR >60 09/23/2023 Lab Results Component Value Date MICROALBCREA 12 06/03/2021 Lab Results Component Value Date MICROALBCREU 12.0 09/23/2023 Obstructive sleep apnea syndrome Using and benefits from CPAP Polymyalgia rheumatica ([facility]) For PMR: cont plan per Rheum - Prednisone 5mg daily (pt reports he has now stopped this and doing well w/ MTX) - Methotrexate 15mg weekly - Folic acid 1 mg daily - RTC 3 months - Labs before visit: CBC, CMP, ESR, CRP, hepatitis panel, T spot Tubular adenoma of colon Comments: c-scope 03/19/21, to repeat 1-2 years, TA: no high grade dysplasia or carcinoma; fragments of sessileserrated polyp Orders: - Referral to Gastroenterology; Future documented in this encounter Plan of Treatment Scheduled Orders Name Type Priority Associated Diagnoses Orde r Schedule Lipid Panel, Standard Lab Routine Type 2 diabetes mellitus with hyperlipidemia (CMS/HCC) ([facility]/HCC) Expected: 03/01/2025 (Approximate), Expires: 03/01/2026 Comprehensive Metabolic Panel Lab Routine Type 2 diabetes mellitus with hyperlipidemia (CMS/HCC) ([facility]/HCC) Expected: 03/01/2025 (Approximate), Expires: 03/01/2026 Albumin, Random Urine W/Creatinine Lab Routine Type 2 diabetes mellitus with hyperlipidemia (CMS/HCC) ([facility]/HCC) Expected: 03/01/2025 (Approximate), Expires: 03/01/2026 Scheduled Referrals Name Type Priority Associated Diagnoses Order Schedule Referral to Gastroenterology Outpatient Referral Routine Tubular adenoma of colon Expected: 03/01/2025 (Approximate), Expires: 03/01/2026 documented as of this encounter Goals Goal Patient Goal Type Associated Problems Recent Progress Patient-Stated? Author Blood Pressure < 140/90 Blood Pressure 111/71(2024 9:48 AM EDT) No Kang Garvin, Nayely Hemoglobin A1c < 7 Result Component 6.6( 9:52 AM EDT) No Kang Garvin, Nayely documented as of this encounter Procedures Procedure Name Priority Date/Time Associated Diagnosis Comments POCT GLUCOSE Routine 03/01/2025 9:53 AM EDT Type 2 diabetes mellitus with hyperlipidemia ([facility]/HCC) ([facility]) POCT GLYCATED HEMOGLOBIN, TOTAL Routine 03/01/2025 9:52 AM EDT Type 2 diabetes mellitus with hyperlipidemia ([facility]/HCC) ([facility]) documented in this encounter Results * POCT Glucose (03/01/2025 9:53 AM EDT) Glucose Blood, POC 112 60 - 200 mg/dL QC Media Lot # [id number] Lot# Expiration Date 619,685 Blood Capillary blood specimen / Unknown 03/01/2025 9:53 AM EDT us Karla CORDERO POINT OF CARE TEST ENTER/EDIT OR DERABLES Final Result * (ABNORMAL) POCT HGB A1C (03/01/2025 9:52 AM EDT) Hemoglobin A1C 6.6(A) 4.0 - 6.0 % QC Media Lot # [id number] Lot# Expiration Date 829 Blood 03/01/2025 9:52 AM EDT us Karla CORDERO POINT OF CARE TEST ENTER/EDIT OR DERABLES Final Result documented in this encounter Visit Diagnoses Diagnosis Type 2 diabetes mellitus with hyperlipidemia (CMS/HCC) ([facility])- Primary Primary 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 Unspecified essential 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 Obstructive sleep apnea syndrome Obstructive sleep apnea (adult) (pediatric) Polymyalgia rheumatica ([facility]) Polymyalgia rheumatica Tubular adenoma of colon Benign neoplasm of colon documented in this encounter Additional Health Concerns Assessment Noted Time PHQ-9 Depression Total Score: 0 11/01/20 24 9:52 AM EST documented as of this encounter Care Teams Automatic Shirring Machine Operator Relationship Specialty Start Date End Date Karla Garza ANP [address] [place] [address] PCP - General Family Medicine 10/05/22 Kang Garvin PharmD [address] [place] [address] Pharmacist Internal Medicine 04/26/24 documented as of this encounter
--- OUTSIDE RECORDS SUMMARY | 2025-03-06 16:05 | XMS_ITS | Encounter Summary ---
Author Organization [employer] Address [address] [place] [address] [place] [address] Care Team Providers Care Welder Gas Name Role Phone Karla Garza Primary Care Provider [phone] Kang Garvin PharmD Unavailable [phone] Reason for Visit * Reason Comments Med Refill Encounter Details Date Type Department Care Team ([facility] st Contact Info) Description 03/02/2023 Refill [facility] MEDICINE [address] [place] [address] Karla Garza ANP [address] [place] [address] Type 2 diabetes mellitus with hyperlipidemia (CMS/HCC) [...] (CMS/HCC) documented in this encounter Care Teams Welder Gas Relationship Specialty Start Date End Date Karla Garza ANP [address] [place], [place] [phone] PCP - General Family Medicine 10/05/22 Kang Garvin, PharmD [address] [place] [address] Pharmacist Internal Medicine 04/26/24 documented as of this encounter
== END 2025-03-06 13:53 | disposition home or self-care (01) ==
LOC: HO.HPS 13:32
PROVIDERS: PCP Nurse Practitioner Primary Care; Visit Provider Internal Medicine Pulmonary Disease
DX: J44.9 Chronic obstructive pulmonary disease, unspecified (principal)
CPT/HCPCS: 99213

== ENCOUNTER → 2025-03-06 13:32 | Outpatient (BNVA) | payer OTHER, SELFPAY | PROVIDERS: PCP Nurse Practitioner Primary Care; Visit Provider Internal Medicine Pulmonary Disease | DX: J44.9 Chronic obstructive pulmonary disease, unspecified (principal); R06.00 Dyspnea, unspecified; Z87.891 Personal history of nicotine dependence; Z79.899 Other long term (current) drug therapy | CPT/HCPCS: 99212 ==

== ENCOUNTER 2025-05-01 12:17 | Outpatient (REF) | payer OTHER, SELFPAY ==
[2025-05-01 13:06] LABS: MANUAL DIFF FLAG NO
[2025-05-01 13:09] LABS: Basophils Percent Auto 0.2 % (0-2); Eosinophils Absolute Auto 0.2 X10*3/uL (0.0-0.4); Eosinophils Percent Auto 2.6 % (0-4); Hematocrit 42.3 % (42.0-52.0); Hemoglobin 13.8 g/dl (14.0-18.0); Imm Gran Abs Auto 0.03 X10*3/uL (0.00-0.03); Imm Gran Pct Auto 0.4 % (0.0-0.4); Lymphocytes Absolute Auto 1.6 X10*3/uL (1.2-4.9); Lymphocytes Percent Auto 19.9 % (20-40); Mean Corpuscular HGB Conc 32.6 g/dl (31.0-36.0); Mean Corpuscular Hemoglobin 30.1 pg (27.0-33.0); Mean Corpuscular Volume 92.2 fL (80.0-98.0); Mean Platelet Volume 10.6 fL (9.4-12.4); Monocytes Absolute Auto 0.6 X10*3/uL (0.1-1.2); Neutrophils Absolute Auto 5.7 x10*3/uL (2.0-8.3); Neutrophils Percent Auto 69.9 % (45-73); Platelet Count 284 X10*3/uL (160-400); Red Blood Count 4.59 X10*6/uL (4.60-5.80); Red Cell Distribution Width 11.9 % (11.0-16.0); White Blood Count 8.2 X10*3/uL (4.8-10.8)
[2025-05-01 13:23] LABS: Alanine Aminotransferase 27 U/L (0-40); Albumin Level 4.5 g/dL (3.5-5.0); Alkaline Phosphatase 86 U/L (39-117); Anion Gap 12 (12-20); Aspartate Amino Transferase 24 U/L (5-37); Bilirubin Total 0.5 mg/dL (0.0-1.0); Blood Urea Nitrogen 18 mg/dL (9-16); C Reactive Protein 0.16 mg/dL (< or = 0.50); Calcium 9.3 mg/dL (8.4-10.2); Carbon Dioxide 27 mmol/L (22-29); Chloride 110 mmol/L (96-108); Estimated Glomerular Filt Rate > 60; Glucose Random 128 mg/dL (60-115); Potassium 4.8 mmol/L (3.3-5.1); Sodium 144 mmol/L (135-145); Total Protein 7.6 g/dL (6.5-8.0)
[2025-05-01 13:53] LABS: Erythrocyte Sedimentation Rate 6 MM/HR (0-15)
--- OUTSIDE RECORDS SUMMARY | 2025-05-01 14:08 | XMS_ITS | Encounter Summary ---
Author Organization [employer] Address [address] [place] [address] 7t [place] [address] Care Team Providers Care Accounting System Expert Name Role Phone Karla Garza Primary Care Provider [phone] Kang Garvin PharmD Unavailable [phone] Reason for Visit * Reason Comments Med Refill Encounter Details Date Type Department Care Team (Late st Contact Info) Description 02/05/2023 Refill [facility] MEDICINE [address] [place] [address] [phone] Karla Garza ANP [address] [place] [address] [phone] Type 2 diabetes mellitus with hyperlipidemia ([facility]/HCC) Social History Tobacco Use Types Packs/Day Years [...] Care Team (Late st Contact Info) Description 07/01/2025 1:15 PM EDT Office Visit [facility] MEDICINE [address] [place] [address] [phone] Karla Garza ANP [address] [place] [address] [phone] 09/02/2025 11:00 AM EDT Medication Management [facility] MEDICINE [address] [place] [address] Kang Garvin, PharmD [address] [place] [address] documented as of this encounter Visit Diagnoses Diagnosis Type 2 diabetes mellitus with hyperlipidemia (CMS/HCC) (CMS/HCC) documented in this encounter Care Teams Accounting System Expert Relationship Specialty Start Date End Date Karla Garza ANP [address] [place] [phone] PCP - General Family Medicine 10/05/22 Kang Garvin, ManuelD [address] [place] [phone] Pharmacist Internal Medicine 04/26/24 documented as of this encounter
== END 2025-05-01 12:18 | disposition home or self-care (01) ==
LOC: HO.10HDL 12:17
PROVIDERS: Visit Provider Student in an Organized Health Care Education/Training Program
DX: M35.3 Polymyalgia rheumatica (principal)
CPT/HCPCS: 36415; 80053; 85025; 85652; 86140

== ENCOUNTER 2025-08-28 08:19 | Outpatient (REF) | payer OTHER, SELFPAY ==
[2025-08-28 13:54] LABS: Alanine Aminotransferase 28 U/L (0-40); Albumin Level 4.6 g/dL (3.5-5.0); Alkaline Phosphatase 101 U/L (39-117); Anion Gap 13 (12-20); Aspartate Amino Transferase 28 U/L (5-37); Blood Urea Nitrogen 20 mg/dL (9-16); Calcium 9.5 mg/dL (8.4-10.2); Carbon Dioxide 27 mmol/L (22-29); Chloride 108 mmol/L (96-108); Estimated Glomerular Filt Rate > 60; Potassium 4.6 mmol/L (3.3-5.1); Sodium 143 mmol/L (135-145); Total Protein 7.7 g/dL (6.5-8.0)
== END 2025-08-28 08:20 | disposition home or self-care (01) ==
LOC: HO.HKASLDS 08:19
PROVIDERS: PCP Nurse Practitioner Primary Care; Visit Provider Student in an Organized Health Care Education/Training Program
DX: Z51.81 Encounter for therapeutic drug level monitoring (principal); M35.3 Polymyalgia rheumatica; Z79.52 Long term (current) use of systemic steroids; Z79.631 Long term (current) use of antimetabolite agent; Z79.899 Other long term (current) drug therapy
CPT/HCPCS: 36415; 80053; 85652; 86140; 99212

== ENCOUNTER 2025-08-28 08:19 | Outpatient (AMB) | payer OTHER, SELFPAY ==
--- NOTE | 2025-08-28 08:27 | A.OFFVIS_ITS ---
Vital Signs 08/28/25 08:37 Height 5 ft 7 in Weight 210 lb 1.608 oz BMI 32.9 BP 120/70 Blood Pressure Location Rt brachial Position Sitting Pulse 63 Pulse Source Pulse Oximeter Pulse Oximetry (%) 96 Oxygen Delivery Method Room Air Intake Visit Reasons: PMR Intake Note: Patient presents today for PMR and lab results. Research Administrator Name: [id number] haile Information Interpreted: non-clinical & clinical Accompanied by: Self / Same As Patient Allergies Penicillins (PENICILLINS) Allergy (Intermediate, Verified 08/28/25 08:39) RASH acetaminophen (From Percocet) Adverse Reaction (Intermediate, Verified 08/28/25 08:39) Agitated oxycodone (From Percocet) Adverse Reaction (Intermediate, Verified 08/28/25 08:39) Agitated Medication List - Last Reconciled 08/28/25 by Magdalene Milian MD acetaminophen 500 mg PO QID PRN albuterol-budesonide 90-80 mcg/actuation (Airsupra) 2 inhalations inhalation TID PRN amlodipine (Norvasc) 10 mg PO DAILY aspirin 1 tab PO DAILY atorvastatin 20 mg PO DAILY atorvastatin 40 mg PO DAILY dulaglutide (Trulicity) mg subcut empagliflozin (Jardiance) 25 mg PO QAM empagliflozin-metformin 12.5-1,000 mg (Synjardy) tabs PO folic acid 1 mg PO DAILY glipizide ER 5 mg PO QAM lisinopril 40 mg PO DAILY methotrexate sodium 15 mg (6 x 2.5 mg) PO QWEEK 90 days prednisone 5 mg PO DAILY HPI Comments Details: Patient is a 70-year-old male with 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, diabetes (no A1c in file unsure of control), hyperlipidemia who presents for follow-up of his polymyalgia rheumatica. Interval History: Last seen patient last seen 01/25/25 with me. - On Prednisone 5mg - Stopped his prednisone however Patient contacted the office in December 2024 reporting resumption of symptoms and requesting prednisone. - Prednisone taper was prescribed and sooner appointment was made - After starting the prednisone he had almost immediate improvement in his symptoms. - Currently tapered down to 5 mg and is still doing well on the 5 mg. - Given the relapse, he was started on methotrexate Today - On methotrexate 15mg PO weekly and folic acid 1mg daily. Prednisone 5mg daily - Doing well - No return of sx Rheumatologic History: Patient diagnosed with polymyalgia rheumatica in 01/2022 after presenting with pain, stiffness, weakness in his proximal muscle groups including his shoulders and his thighs. He was started on 15 mg of prednisone which resolved her symptoms and this was slowly tapered. Discontinued prednisone 10/2021 Restarted 7 mg prednisone 08/2022 and this was tapered off (unsure of the stop date) Prednisone restarted at low dose in 09/2022. Currently on 1 mg prednisone alternate days for the since Nov 2023 Increased to 2.5mg 07/2024 Pred stopped 09/2024 Prednisone * Started 15mg 01/2022 * Discontinued 10/2021 * Restarted 05/2022 7mg * Discontinued ? 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 Muscle weakness of right upper extremity Muscle weakness of left upper extremity Chest discomfort Left shoulder pain Bilateral hand pain Abnormal colonoscopy long term care social worker 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 Polymyalgia rheumatica Gastroesophageal reflux disease Asthma Gout History of high cholesterol Laceration of right hand involving extensor tendon HTN (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) Diabetes Pulmonary nodules Asthma-COPD overlap syndrome Dyspnea on exertion Surgical History Hx of circumcision Status post amputation of finger Hx of colonoscopy Family History Mother Myocardial infarction, Onset Age: 58 Social History Household Members: Spouse Household Members Other:: son Housing: House Alcohol intake: current Alcohol intake frequency: a few times a week Alcohol type: beer Patient Tobacco Use Status: Former Tobacco user Current occupational status: retired Review of Systems Const Details: Review of Systems Constitutional: Denies fever, chills, weight loss ENT: Denies vision changes, eye pain or eye redness, dental caries, dry mouth GI: Denies nausea, vomiting, diarrhea, abdominal pain, change in BM Pulm: Denies SOB, MARCANO, hemoptysis, wheezing Cards: Denies chest pain, palpitations Skin: Denies Raynaud's, rash, nail changes, photosensitivity, BELLMAN DRIVER: Denies headaches, weakness, paresthesias, recurrent falls MSK: as per HPI All other systems reviewed and are unremarkable except noted above Physical Exam Exam Exam: Vital signs reviewed Physical Examination CONSTITUITIONAL Patient alert and cooperative. Well appearing and in no apparent painful distress MSK Hands * Right Hand: Able to make a fist. No swelling or tenderness to palpation of the MCPs, PIPs or DIPs. * Left Hand: Able to make a fist. No swelling or tenderness to palpation of the MCPs, PIPs or DIPs. * Herbedens nodes noted bilaterally Wrists * Right Wrist: Full ROM to flexion and extension. No swelling or TTP * Left Wrist: Full ROM to flexion and extension. No swelling or TTP Elbows * Right Elbow: Full ROM. No swelling or TTP. No TTP of the medial epicondyle. No TTP of the lateral epicondyle * Left Elbow: Full ROM. No swelling or TTP. No TTP of the medial epicondyle. No TTP of the lateral epicondyle Shoulders * Right shoulder: Full ROM. No swelling noted. No TTP of the AC joint. No TTP of the subacromial bursa. No TTP of the posterior shoulder * Left shoulder: Full ROM. No swelling noted. No TTP of the AC joint. No TTP of the subacromial bursa. No TTP of the posterior shoulder Knees * Right knee: Full ROM. No swelling noted. No TTP of the knee joint line. No TTP of pes anserine bursa * Left knee: Full ROM. No swelling noted. No TTP of the knee joint line. No TTP of pes anserine bursa. * Crepitations felt bilaterally Ankles * Right ankle: Good ankle dorsiflexion and plantar flexion. No swelling. No TTP of the ankle joint * Left ankle: Good ankle dorsiflexion and plantar flexion. No swelling. No TTP of the ankle joint Feet * Right foot: Negative squeeze test * Left foot: Negative squeeze test Tender points? * No tenderness to palpation of the bilateral trapezius, supraspinatus, anterior costochondral junctions, bilateral suboccipital muscle insertions SKIN No rashes Vital Signs: Last Vital Signs Pulse 63 10/15/25 08:37 BP 120/70 08/28/25 08:37 Pulse Ox 96 08/28/25 08:37 Oxygen Delivery Method Room Air 08/28/25 08:37 BMI result Body Mass Index 32.9 Results Reviewed Results Reviewed: Laboratory Tests 08/28/25 09:21 ESR 6 Sodium 143 Potassium 4.6 Chloride 108 Carbon Dioxide 27 BUN 20 H Creatinine 0.92 AST 28 ALT 28 C-Reactive Protein 0.25 Assessment & Plan Assessment & Plan (1) Polymyalgia rheumatica: Comment: Prednisone - Started 15mg 01/2022 - Discontinued 10/2021 - Restarted 05/2022 7mg - Discontinued ? - Restarted 09/2022 ?mg - Tapered to 1mg 11/2023 - Stopped 09/2024 - Restarted 12/2024 Methotrexate started 12/2024 Code(s): M35.3 - Polymyalgia rheumatica Category: Medical Plan: #PMR Patient is a 70-year-old male here today for follow up of his PMR. Restarted prednisone December of 2024 after relapse. Methotrexate started. Patient tolerating this very well. 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: Code(s): Z79.52 - long term care social worker (current) use of systemic steroids Category: Medical Plan: #Long-term Use of Steroids Discussed with patient the risks and benefits of steroid for managing the rheumatic condition Benefits include: - Reduced pain, improved mobility, increased participation in activities, and decreased progression of disease Risks include: - GI upset, potential ultrasound worsening or formation (especially in patients > 65 years old), elevated blood pressure/worsening 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, elevated blood sugar/worsening diabetes control, worsening of bone density, elevated lipids/worsening triglycerides, cataract formation, weight gain Recommended using proton pump inhibitors (PPIs) for the duration of steroid use to reduce the risk of gastric ulcers and vitamin-D daily to reduce the risk of osteoporosis Labs checked: ?A1c, T spot, hepatitis-B and C serologies DEXA checked 11/2024 with normal bone density and no evidence of osteoporosis. Pneumocystis jiroveci prophylaxis: ?Patient with risk factors including steroids greater than 50 mg for more than 30 days, age greater than 60 years, and lung involvement from underlying rheumatic disease requires prophylaxis and will be given so (3) Encounter for methotrexate monitoring: Code(s): Z51.81 - Encounter for therapeutic drug level monitoring; Z79.631 - nursing home (current) use of antimetabolite agent Plan: #Long-term Current Use of Methotrexate Discussed with patient the benefits and risks of methotrexate for managing their rheumatic condition Benefits include reduced pain, reduced mortality, maintenance of remission and reduction of flares Risks include oral ulcers, photosensitivity, hepatotoxicity, hematologic t oxicity, pneumonitis, flu-like symptoms (especially day after administration), nodulosis, lymphomas ? Limit alcohol and avoid Bactrim ? Monitoring: ?CBC, BMP, LFTs every 3-4 months and hepatitis serologies as needed Plan I spent 32 minutes reviewing the record and labs, seeing the patient, discussing results and documenting in the medical record Orders: Orders Comprehensive Met. Panel 08/28/25 Z79.899 - Other termite inspector (current) drug therapy C Reactive Protein 08/28/25 Z79.899 - Other longterm (current) drug therapy Erythrocyte Sedimentation Rate 08/28/25 Z79.899 - Other longterm (current) drug therapy Medications: New prednisone 4 mg (4 x 1 mg) PO DAILY 360 tabs 0RF 90 days M35.3 - Polymyalgia rheumatica Refilled methotrexate sodium 15 mg (6 x 2.5 mg) PO QWEEK 78 tabs 1RF 90 days M35.3 - Polymyalgia rheumatica folic acid 1 mg PO DAILY 90 tabs 1RF M35.3 - Polymyalgia rheumatica Coding Level of Care Code Est Pt Level 4 (54920) Complex EM visit Add On G2211 Diagnoses Polymyalgia rheumatica M35.3 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
[2025-08-28 08:37] VITALS: BP 120/70; PULSE 63; O2SAT 96; BMI 32.9
--- OUTSIDE RECORDS SUMMARY | 2025-08-28 08:39 | XMS_ITS | Encounter Summary ---
Author Organization [employer] Address [address] [facility] 7t [place] [address] Care Team Providers Care Special Warfare Operator Name Role Phone Karla Garza Primary Care Provider [phone] Kang Garvin PharmD Unavailable [phone] Reason for Visit * Reason Comments Med Refill Encounter Details Date Type Department Care Team ([facility] st Contact Info) Description 11/20/2023 Refill [facility] [address] [place], [place] [phone] Karla Garza ANP [address] [place] [address] Type 2 diabetes mellitus with hyperlipidemia ([facility]/HCC) Social History Tobacco Use Types Packs/Day Years [...] Care Team (Late st Contact Info) Description 09/02/2025 11:00 AM EDT Medication Management [facility] [address] [place] [phone] Kang Garvin, Nayely [address] [place] [phone] 10/31/2025 1:00 PM EST Office Visit [facility] [address] [place] [phone] Karla Garza ANP [address] [place] [phone] documented as of this encounter Visit Diagnoses Diagnosis Type 2 diabetes mellitus with hyperlipidemia (HCC) documented in this encounter Care Teams Special Warfare Operator Relationship Specialty Start Date End Date Karla Garza ANP [address] [place] [phone] PCP - General Family Medicine 10/05/22 Kang Garvin, ManuelD [address] [place] [phone] Pharmacist Internal Medicine 04/26/24 documented as of this encounter
--- OUTSIDE RECORDS SUMMARY | 2025-08-28 08:39 | XMS_ITS | Encounter Summary ---
Author Organization [employer] Address [address] [place] [address] 7t [place] [address] Care Team Providers Care Combat Systems Engineer Name Role Phone Karla Garza Primary Care Provider [phone] Kang Garvin PharmD Unavailable [phone] Reason for Visit * Reason Comments Med Refill Encounter Details Date Type Department Care Team (Late st Contact Info) Description 03/02/2023 Refill [facility] [address] [place] [phone] Karla Garza ANP [address] [place] [address] Type 2 diabetes mellitus with hyperlipidemia ([facility]) Social History Tobacco Use Types [...] 09/02/2025 11:00 AM EDT Medication Management [facility] [address] [place] [address] Kang Garvin, PharmD [address] [place] [address] 10/31/2025 1:00 PM EST Office Visit [facility] [address] [place] [address] Karla Garza ANP [address] [place] [address] documented as of this encounter Visit Diagnoses Diagnosis Type 2 diabetes mellitus with hyperlipidemia (HCC) documented in this encounter Care Teams Combat Systems Engineer Relationship Specialty Start Date End Date Karla Garza ANP [address] [place] [phone] PCP - General Family Medicine 10/05/22 Kang Garvin, ManuelD [address] [place] [phone] Pharmacist Internal Medicine 04/26/24 documented as of this encounter
--- OUTSIDE RECORDS SUMMARY | 2025-08-28 08:39 | XMS_ITS | Encounter Summary ---
Author Organization [employer] Address [address] [place] [address] 7t [place] [address] Care Team Providers Care Tape Duplicator Name Role Phone Karla Garza Primary Care Provider [phone] Kang Garvin PharmD Unavailable [phone] Reason for Visit * Reason Comments Med Refill Encounter Details Date Type Department Care Team (Late st Contact Info) Description 03/11/2023 Refill [facility] [address] [place], [place] [phone] Karla Garza ANP [address] [place] [address] Cardiovascular event risk Social History Tobacco Use [...] Description 09/02/2025 11:00 AM EDT Medication Management [facility] [address] [place] [phone] Kang Garvin, PharmD [address] [place] [address] 10/31/2025 1:00 PM EST Office Visit [facility] [address] [place] [address] Karla Garza ANP [address] [place] [address] documented as of this encounter Visit Diagnoses Diagnosis Cardiovascular event risk documented in this encounter Care Teams Tape Duplicator Relationship Specialty Start Date End Date Karla Garza ANP [address] [place] [address] PCP - General Family Medicine 10/05/22 Kang Garvin, ManuelD [address] [place] [address] Pharmacist Internal Medicine 04/26/24 documented as of this encounter
--- OUTSIDE RECORDS SUMMARY | 2025-08-28 08:39 | XMS_ITS | Encounter Summary ---
Author Organization [employer] Address [address] [place] [address] 7t [place] [address] Care Team Providers Care Braid Pattern Setter Name Role Phone Karla Garza Primary Care Provider [phone] Kang Garvin PharmD Unavailable [phone] Reason for Visit * Reason Comments Med Change Request Encounter Details Date Type Department Care Team (Late st Contact Info) Description 12/03/2022 Refill [facility] [address] [place] [address] Karla Garza ANP [address] [place] [address] Type 2 diabetes mellitus with hyperlipidemia ([facility]/HCC) Social History Tobacco Use Types Packs/Day [...] Description 09/02/2025 11:00 AM EDT Medication Management [facility] [address] [place] [address] Kang Garvin, PharmD [address] [place] [phone] 10/31/2025 1:00 PM EST Office Visit [facility] [address] [place] [phone] Karla Garza ANP [address] [place] [phone] documented as of this encounter Visit Diagnoses Diagnosis Type 2 diabetes mellitus with hyperlipidemia (HCC) documented in this encounter Care Teams Braid Pattern Setter Relationship Specialty Start Date End Date Karla Garza ANP [address] [place] [phone] PCP - General Family Medicine 10/05/22 Kang Garvin, PharmD [address] [place] [phone] Pharmacist Internal Medicine 04/26/24 documented as of this encounter
--- OUTSIDE RECORDS SUMMARY | 2025-08-28 08:39 | XMS_ITS | Clinical Summary ---
Author Organization [employer] Address [address] [facility] 7t [place] [address] Care Team Providers Care Animal Biologist Name Role Phone Karla Garza CONSUELO Primary Care Provider [phone] Kang Garvin PharmD Unavailable [phone] Allergies Active Allergy Reactions Criticality Noted Date [...] padsIndications:T ype 2 diabetes mellitus with hyperlipidemia (HCC) Use as needed 100 each 11 12/03/19 23 Active Blood Glucose Monitoring Suppl (FreeStyle Lite) w/Device kitIndications:Ty pe 2 diabetes mellitus with hyperlipidemia (HCC) 1 each 3 times daily. 1 kit 12/31/19 23 Active FreeStyle lancetsIndication s:Type 2 diabetes mellitus with hyperlipidemia (HCC) Use 3x/d, dx type 2 diabetes 100 each 11 12/31/19 23 Active Symbicort 160-4.5 MCG/ACT inhaler Inhale 2 puffs 2 times daily. 09/14/20 23 Active Dulaglutide 0.75 MG/0.5ML solution auto-injectorIndi cations:Type 2 diabetes mellitus with hyperlipidemia (HCC) Inject 0.75 mg under the skin 1 (one) time per week. 2 mL 11 12/10/19 25 Active Aspirin Low Dose 81 MG chewable tabletIndications :Cardiovascular event risk CHEW 1 TABLET BY MOUTH EVERY DAY 90 tablet 1 04/01/20 25 Active amLODIPine (Norvasc) 10 MG tabletIndications :Primary 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 TAKE 1 TABLET BY MOUTH EVERY DAY IN THE MORNING 90 tablet 1 04/01/20 25 Active lisinopril 40 MG tabletIndications :Primary 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 TAKE 1 TABLET BY MOUTH EVERY DAY IN THE MORNING 90 tablet 1 04/17/20 25 Active Synjardy 12.5-1000 MGIndications:Typ e 2 diabetes mellitus with hyperlipidemia (HCC) TAKE 1 TABLET BY MOUTH TWICE DAILY WITH BREAKFAST AND WITH DINNER 180 tablet 3 05/30/20 25 Active atorvastatin (Lipitor) 40 MG tabletIndications :Type 2 diabetes mellitus with hyperlipidemia (HCC) Take 1 tablet (40 mg) by mouth Once per day. 90 tablet 3 07/01/20 25 Active glucose blood (FREESTYLE LITE) test stripIndications: Type 2 diabetes mellitus with hyperlipidemia (HCC) USE DIRECTED TO TEST BLOOD SUGAR 2 OR 3 TIMES DAILY OR MORE NEEDED 100 strip 11 08/02/20 25 Active glucose blood (FREESTYLE LITE) test stripIndications: Type 2 diabetes mellitus with hyperlipidemia (HCC) USE TO TEST BLOOD SUGAR 2 OR 3 TIMES DAILY OR MORE NEEDED 100 strip 11 04/03/20 24 025 Discontinued Active Problems Problem Noted Date Diagnosed Date Periodontal disease 08/08/2025 Dental caries 08/08/2025 assisted (current) use of systemic steroids Tubular adenoma of colon 03/01/2025 Overview (03/01/2025): [...] 05/31/2018 Type 2 diabetes mellitus with hyperlipidemia Overview (07/30/2024): Lab Results Component Value Date [...] Encounters Date Type Department Care Team Description 08/15/2025 Telephone [facility] [address] [place] [address] Karla Garza ANP october recall 08/14/2025 Telephone [facility] [address] [place] [address] Karla Garza ANP Durable Medical Equipment 08/08/2025 10:30 AM EDT Office Visit [facility] ADULT DENTAL [address] [place] [address] Chase Robins DDS Periodontal disease (Primary Dx); Dental caries 08/02/2025 Refill [facility] [address] [place] [address] Karla Garza ANP Type 2 diabetes mellitus with hyperlipidemia (CMS/HCC) (CMS/HCC) 07/04/2025 11:30 AM EDT Office Visit [facility] AD[facility] [address] [place] [address] Juli Velez DDS Encounter for dental examination (Primary Dx); Dental caries; Dental calculus; Chronic periodontal disease; Edentulism; Poor oral hygiene 07/01/2025 1:15 PM EDT Office Visit [facility] [address] [place] [address] Karla Garza ANP Type 2 diabetes mellitus with hyperlipidemia (CMS/HCC) (CMS/HCC) (Primary Dx); Intermittent claudication (CMS/HCC); Polymyalgia rheumatica (CMS/HCC); Obstructive sleep apnea syndrome; Primary 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; intermediate frame tender (current) use of systemic steroids; Tubular adenoma of colon 07/01/2025 Refill [facility] [address] [place] [address] Kang Garvin, Nayley Type 2 diabetes mellitus with hyperlipidemia (CMS/HCC) (CMS/HCC) 07/01/2025 Travel 06/28/2025 Telephone [facility] [address] [place], [place] [phone] Karla Garza ANP chart prep 06/24/2025 Patient Outreach [facility] [address] [place], [place] [phone] Karla Garza ANP Pre-visit Planning (SDOH was already completed) 05/29/2025 Refill [facility] [address] [place], [place] [phone] Kang Garvin, Nayely Type 2 diabetes mellitus with hyperlipidemia (CMS/HCC) ([facility]) from Last 3 Months Immunizations Immunization Administration Dates Next Due Hep B, adult [...] Sign Reading Time Taken Comments Blood Pressure 138/74 08/08/2025 10:46 AM EDT Pulse 70 08/08/2025 10:46 AM EDT Temperature 36.4 C (97.6 F) 07/01/2025 1:09 PM EDT Respiratory Rate 20 07/01/2025 1:09 PM EDT Oxygen Saturation 98% 07/01/2025 1:09 PM EDT Inhaled Oxygen Concentration - - Weight 98.1 kg (216 lb 3.2 oz) 07/01/2025 1:09 P M EDT Height 170.2 cm (5' 7 ) 07/01/2025 1:09 PM EDT Body Mass Index 33.86 07/01/2025 1:09 PM EDT Plan of Treatment Upcoming Encounters Date Type Department Care Team (Late st Contact Info) Description 09/02/2025 11:00 AM EDT Medication Management [facility] [address] [place] [phone] Kang Garvin, PharmD [address] [place] [address] 10/31/2025 1:00 PM EST Office Visit [facility] [address] [place] [phone] Karla Garza, ANP [address] [place] [address] Health Maintenance Due Date Last Done Comments Anal Pap 1955 CT Colonography 1955 Dental Prophylaxis 1955 FIT DNA/Cologuard 1955 FIT 1955 FOBT 1955 Sigmoidoscopy 1955 Hepatitis A Vaccines (1 of 2 - Risk 2-dose series) 1974 Dental X-Ray: Bitewings 03/19/2016 03/18/2015 Colonoscopy 03/19/2024 03/19/2021 Colorectal Cancer Screening 03/19/2024 Diabetes: Urine Protein Screening 09/23/2024 09/23/2023, 06/03/2021 Lipid Panel 05/23/2025 05/23/2024, 09/14, 06/03/2021 COVID-19 Vaccine ( season) 2025 12/31/2022, 10/12/2021, 02/18/2021, Additional history exists Diabetes: Hemoglobin A1C 10/01/2025 025, 03/01/2025, 11/01/2024, Additional history exists Alcohol/Substance Use Screening 11/01/2025 11/01/2024 Depression Screening 11/01/2025 11/01/2024, 11/01/20 Eye Exam 11/02/2025 Dental Oral Exam 01/05/2026 07/04/2025, 03/2021, 10/25/2017, Additional history exists SDOH Screening 03/01/2026 03/01/2025 Diabetes: Foot Exam 07/01/2026 07/01/2025, 04/23/2024, 04/23/2024, Additional history exists Tobacco Screening 08/08/2026 08/08/2025 Dental X-Ray: Full Mouth 07/05/2028 025, 01/16/2024, 03/18/2015 DTaP/Tdap/Td Vaccines (3 - Td or Tdap) 06/10/2033 06/10/2023, 07/02/2016 Pneumococcal Vaccine: 50+ Years Completed 09/23/2023, 10/29/2021, 01/26/2018 Zoster Vaccines Completed 08/13/2024, 06/2024, 09/12/2018 Hepatitis B Vaccines Discontinued 09/10/2024, 07/30/20 24 Hepatitis C Screening Completed 10/09/2024 RSV Patients and Patients Aged 60 years or older Completed 12/10/2024 Influenza Vaccine Completed 07/19/2025, , 09/23/2023, Additional history exists HIB Vaccines Aged Out No longer eligi ble based on patient's age to complete this topic HPV Vaccines Aged Out No longer eligi ble based on patient's age to complete this topic IPV Vaccines Aged Out No longer eligi ble based on patient's age to complete this topic Meningococcal B Vaccine Aged Out No l onger eligible based on patient's age to complete [...] Author Blood Pressure < 140/90 Blood Pressure 138/74(2024 10:46 AM EDT) No Kang Garvin PharmD Hemoglobin A1c < 7 Result Component 6.4( 1:29 PM EDT) No Kang Garvin PharmD Procedures Procedure Name Priority Date/Time Associated Diagnosis Comments CASE PRESENTATION, DETAILED AND EXTENSIVE TREATMENT PLANNING Routine 08/08/2025 10:30 AM EDT 12 EXTRACTION, ERUPTED TOOTH OR EXPOSED ROOT (ELEVATION/FORCEPS REMOVAL) Routine 08/08/2025 10:30 AM EDT 4 EXTRACTION, ERUPTED TOOTH OR EXPOSED ROOT (ELEVATION/FORCEPS REMOVAL) Routine 08/08/2025 10:30 AM EDT 5 EXTRACTION, ERUPTED TOOTH OR EXPOSED ROOT (ELEVATION/FORCEPS REMOVAL) Routine 08/08/2025 10:30 AM EDT CASE PRESENTATION, DETAILED AND EXTENSIVE TREATMENT PLANNING Routine 07/04/2025 11:30 AM EDT Encounter for dental examination Dental caries Dental calculus Chronic periodontal disease Edentulism Poor oral hygiene PANORAMIC RADIOGRAPHIC IMAGE Routine 07/04/2025 11:30 AM EDT Encounter for dental examination Dental caries Dental calculus Chronic periodontal disease Edentulism Poor oral hygiene PERIODIC ORAL EVALUATION - ESTABLISHED PATIENT Routine 07/04/2025 11:30 AM EDT Encounter for dental examination Dental caries Dental calculus Chronic periodontal disease Edentulism Poor oral hygiene CASE PRESENTATION, DETAILED AND EXTENSIVE TREATMENT PLANNING Routine 07/04/2025 11:30 AM EDT Encounter for dental examination Dental caries Dental calculus Chronic periodontal disease Edentulism Poor oral hygiene POCT GLYCATED HEMOGLOBIN, TOTAL Routine 07/01/2025 1:29 PM EDT Type 2 diabetes mellitus with hyperlipidemia (CMS/HCC) (CMS/HCC) POCT GLUCOSE Routine 07/01/2025 1:19 PM EDT Type 2 diabetes mellitus with hyperlipidemia (CMS/HCC) (CMS/HCC) HEPATITIS C AB W/REFL TO HCV RNA, QN, PCR Routine 10/09/2024 LIPID PANEL, STANDARD Routine 05/23/2024 9:24 AM EDT ALBUMIN, RANDOM URINE W/CREATININE Routine 09/23/2023 10:03 AM EST Type 2 diabetes mellitus with hyperlipidemia (CMS/HCC) Primary 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 HM COLONOSCOPY Routine 03/19/2021 INTRAORAL - COMPLETE SERIES OF RADIOGRAPHIC IMAGES Routine 03/18/2015 12:00 AM EDT from Last 3 Months or Most Recently Relevant to Health Maintenance Results * (ABNORMAL) POCT HGB A1C (07/01/2025 1:29 PM EDT) Hemoglobin A1C 6.4(A) 4.0 - 5.7 % QC Media Lot # [id number] Lot# Expiration Date [id number] Blood 07/01/2025 1:29 PM EDT us Karla CORDERO POINT OF CARE TEST ENTER/EDIT OR DERABLES Final Result * POCT Glucose (07/01/2025 1:19 PM EDT) Glucose Blood, POC 108 60 - 200 mg/dL QC Media Lot # [id number] Lot# Expiration Date [id number] Blood Capillary blood specimen / Unknown 07/01/2025 1:19 PM EDT us aKrla CORDERO POINT OF CARE TEST ENTER/EDIT OR DERABLES Final Result * Hepatitis C Antibody with Reflex to HCV, RNA, Quantitative, Real-Time PCR (10/09/2024) Blood Venous blood specimen / Unknown 10/09/2024 Historical Provider LAB BLOOD ORDERABLES Sofiya l Result Performing Organization Address City/[facility]/ZIP Co de Phone Number [facility] [address] [place] [address] [phone] * Lipid Panel, Standard (05/23/2024 9:24 AM EDT) Triglycerides 101 <150 mg/dL [facility] Comment:Desirable Triglyceri de: less than 150 mg/dLBorderline High Triglyceride 150-199 mg/dLHigh Triglyceride: 200-499 mg/dLVery High Triglyceride: greater than or equal to 5OO mg/dL Cholesterol 135 <200 mg/dL [facility] Comment:Desirable Cholestero l: less than 200 mg/dLBorderline High Cholesterol: 200-239 mg/dLHigh Cholesterol: greater than 239 mg/dL LDL Cholesterol Calculated 67 <100 mg/dL [facility] Comment:Desirable LDL: less than 100 mg/dLNear Optimal/Above Optimal LDL: 110- 129 mg/dLBorderline High LDL: 130-159 mg/dLHigh LDL: 160-189 mg/dLVery High LDL: greater than or equal to 190 mg/dL HDL Cholesterol 48 >40 mg/dL [facility] Comment:Desirable HDL: great er than 40 mg/dL Note: This HDL assay may give artificially low results in patients with liver disease. 05/23/2024 9:24 AM EDT 05/23/2024 10:54 AM EDT us Karla CORDERO LAB BLOOD ORDERABLES Final Resul t Performing Organization Address City/[facility]/ZIP Co de Phone Number [facility] [address] [place] [address] [phone] * Albumin, Random Urine W/Creatinine (09/23/2023 10:03 AM EST) Creatinine, Urine 57.91 mg/dL [facility] Microalbumin Urine 7.0 mg/L [facility] Microalbum Creatinine Ratio Ur 12.0 <30 ug/mg cr [facility] Comment:Albumin/Creatinine R atio Reference Ranges: Normal: < 30 ug/mg creatinine Microalbuminuria: 30 - 300 ug/mg creatinineClinical Albuminuria: > 300 ug/mg creatinine Urine (Urine, Random) 09/23/2023 10:03 AM EST 09/23/2023 11:06 AM EST [facility] Greg CORDERO LAB URINE ORDERABLES Final Resul t [facility] [address] [place] [address] [phone] * Colonoscopy (03/19/2021) Colonoscopy Normal Normal Historical Provider MD HEALTH MAINTENANCE Final Result from Last 3 Months or Most Recently Relevant to Health Maintenance [email or web address] STAND[facility] INTERMEDIATE OPTIONS (HMO D-SNP) DENTAL - [facility] Care Teams Animal Biologist Relationship Specialty Start Date End Date Karla Garza ANP [address] [place] [address] PCP - General Family Medicine 10/05/22 Kang Garvin PharmD [address] [place] [address] Pharmacist Internal Medicine 04/26/24
--- OUTSIDE RECORDS SUMMARY | 2025-08-28 08:39 | XMS_ITS | Encounter Summary ---
Author Organization [employer] Address [address] [facility] 7t [place] [address] Care Team Providers Care Underwriting Service Representative Name Role Phone Karla Garza Primary Care Provider Kang Garvin PharmD Unavailable [phone] Reason for Visit * Reason Comments Med Refill Encounter Details Date Type Department Care Team ([facility] st Contact Info) Description 07/23/2024 Refill [facility] MEDICINE [address] [place], [place] [phone] Karla Garza ANP [address] [place] [address] Type 2 diabetes mellitus with hyperlipidemia ([facility]/HCC) ([facility]/HCC) Social History Tobacco Use Types Packs/Day [...] Description 09/02/2025 11:00 AM EDT Medication Management [facility] MEDICINE [address] [place] [phone] Kang Garvin PharmD [address] [place] [phone] 10/31/2025 1:00 PM EST Office Visit [facility] MED[facility] [address] [place] [address] Karla Garza ANP [address] [place] [phone] documented as of this encounter Goals Goal Patient Goal Type Associated Problems Recent Progress Patient-Stated? Author Blood Pressure < 140/90 Blood Pressure 138/74(2024 10:46 AM EDT) No Kang Garvin PharmD Hemoglobin A1c < 7 Result Component 6.4( 1:29 PM EDT) No Kang Garvin PharmD documented as of this encounter Visit Diagnoses Diagnosis Type 2 diabetes mellitus with hyperlipidemia (HCC) documented in this encounter Care Teams Underwriting Service Representative Relationship Specialty Start Date End Date Karla Garza ANP [address] [place] [phone] PCP - General Family Medicine 10/05/22 Kang Garvin PharmD [address] [place] [phone] Pharmacist Internal Medicine 04/26/24 documented as of this encounter
--- OUTSIDE RECORDS SUMMARY | 2025-08-28 08:39 | XMS_ITS | Encounter Summary ---
Author Organization [employer] Address [address] [facility] 7t [place] [address] Care Team Providers Care Mower Mechanic Name Role Phone Karla Garza Primary Care Provider [phone] Kang Garvin PharmD Unavailable [phone] Reason for Visit * Reason Onset Date Comments Created in error 05/31/2024 Encounter Details Date Type Department Care Team ([facility] st Contact Info) Description 05/31/2024 Telephone [facility] MEDICINE [address] [place] [address] Karla Garza ANP [address] [place] [address] Created in error Social History Tobacco Use [...] Description 09/02/2025 11:00 AM EDT Medication Management [facility] MEDICINE [address] [place] [phone] Kang Garvin PharmD [address] [place] [address] 10/31/2025 1:00 PM EST Office Visit [facility] MEDICINE [address] [place] [phone] Karla Garza ANP [address] [place] [phone] documented as of this encounter Goals Goal Patient Goal Type Associated Problems Recent Progress Patient-Stated? Author Blood Pressure < 140/90 Blood Pressure 138/74(2024 10:46 AM EDT) No Kang Garvin PharmD Hemoglobin A1c < 7 Result Component 6.4( 1:29 PM EDT) No Kang Garvin PharmD documented as of this encounter Visit Diagnoses Not on filedocumented in this encounter Care Teams Mower Mechanic Relationship Specialty Start Date End Date Karla Garza ANP [address] [place] [phone] PCP - General Family Medicine 10/05/22 Kang Garvin PharmD [address] [place] [phone] Pharmacist Internal Medicine 04/26/24 documented as of this encounter
--- OUTSIDE RECORDS SUMMARY | 2025-08-28 08:39 | XMS_ITS | Encounter Summary ---
Author Organization [employer] Address [address] [place] [address] 7t [place] [address] Care Team Providers Care Eye Glass Frame Polisher Name Role Phone Karla Garza Primary Care Provider [phone] Kang Garvin PharmD Unavailable [phone] Reason for Visit * Reason Comments Med Refill Encounter Details Date Type Department Care Team (Late st Contact Info) Description 02/05/2023 Refill [facility] MEDICINE [address] [place] [phone] Karla Garza ANP [address] [place] [address] Type 2 diabetes mellitus with hyperlipidemia ([facility]) Social History Tobacco Use Types [...] Description 09/02/2025 11:00 AM EDT Medication Management [facility] MEDICINE [address] [place] [address] Kang Garvin, PharmD [address] [place] [address] 10/31/2025 1:00 PM EST Office Visit [facility] MEDICINE [address] [place] [address] Karla Garza ANP [address] [place] [address] documented as of this encounter Visit Diagnoses Diagnosis Type 2 diabetes mellitus with hyperlipidemia (HCC) documented in this encounter Care Teams Eye Glass Frame Polisher Relationship Specialty Start Date End Date Karla Garza ANP [address] [place] [phone] PCP - General Family Medicine 10/05/22 Kang Garvin, ManuelD [address] [place] [phone] Pharmacist Internal Medicine 04/26/24 documented as of this encounter
== END 2025-08-28 09:14 | disposition home or self-care (01) ==
LOC: HO.RHES 08:19
PROVIDERS: PCP Nurse Practitioner Primary Care; Visit Provider Student in an Organized Health Care Education/Training Program
DX: M35.3 Polymyalgia rheumatica (principal); Z79.52 Long term (current) use of systemic steroids; Z51.81 Encounter for therapeutic drug level monitoring; Z79.631 Long term (current) use of antimetabolite agent
CPT/HCPCS: 99214; G2211

== ENCOUNTER 2025-11-13 09:19 | Outpatient (AMB) | payer OTHER, SELFPAY ==
[2025-11-13 09:21] VITALS: BP 112/62; PULSE 65; O2SAT 95; BMI 33.0
--- NOTE | 2025-11-13 09:21 | MHC.OFFVIS ---
Vital Signs 11/13/25 09:21 Height 5 ft 7 in Weight 211 lb BMI 33.0 BP 112/62 Blood Pressure Location Rt brachial Position Sitting Pulse 65 Pulse Source Pulse Oximeter Pulse Oximetry (%) 95 Oxygen Delivery Method Room Air Intake Visit Reasons: copd World Language Teacher Required: Yes World Language Teacher Name: Deidra [place] Unique Information Interpreted: non-clinical & clinical Allergies Penicillins (PENICILLINS) Allergy (Intermediate, Verified 11/13/25 09:25) RASH acetaminophen (From Percocet) Adverse Reaction (Intermediate, Verified 11/13/25 09:25) Agitated oxycodone (From Percocet) Adverse Reaction (Intermediate, Verified 11/13/25 09:25) Agitated HPI HPI copd: Details: 70-year-old gentleman, former under 20 pack-year smoker, quit 2003 followed for pulmonary nodules, asthma, environmental allergies, and dyspnea on exertion after walking 2-3 blocks.? He tried Xolair, however did not receive significant symptomatic benefit. Patient continues on Advair with Airsupra with good control of his symptoms. His follow-up CT chest that showed old granulomatous nodules. He denies recent exacerbations. 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 Muscle weakness of right upper extremity Muscle weakness of left upper extremity Chest discomfort Left shoulder pain Bilateral hand pain Abnormal colonoscopy termite control technician 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 Polymyalgia rheumatica Gastroesophageal reflux disease Asthma Gout History of high cholesterol Laceration of right hand involving extensor tendon HTN (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) Diabetes Pulmonary nodules Asthma-COPD overlap syndrome Dyspnea on exertion Surgical History Hx of circumcision Status post amputation of finger Hx of colonoscopy Family History Mother Myocardial infarction, Onset Age: 58 Social History Household Members: Spouse Household Members Other:: son Housing: House Alcohol intake: current Alcohol intake frequency: a few times a week Alcohol type: beer Patient Tobacco Use Status: Former Tobacco user Current occupational status: retired Review of Systems Const Denies daytime sleepiness, Denies excessive sweating, Denies fatigue, Denies fever(s), Denies lethargy, Denies malaise, Denies night sweats, Denies snoring and Denies weight loss Eyes Denies blurry vision and Denies itchy eyes ENT Denies nasal congestion, Denies post nasal drip, Denies sinus pain, Denies sinus pressure and Denies other ( Thrush) Card Denies chest pain, Denies pedal edema, Denies dyspnea, Denies orthopnea and Denies paroxysmal nocturnal dyspnea Resp Denies cough, Denies hemoptysis, Denies excessive phlegm production, Denies dyspnea, Denies snoring and Denies wheezing GI Denies abdominal pain and Denies heartburn Musc Denies myalgias, Denies arthralgias and Denies joint swelling Skin/Breast Denies rash Neuro Denies memory loss and Denies seizure-like activity Psych Denies abnormal sleep pattern, Denies anxiety and Denies memory loss Endo Denies excessive sweating, Denies fatigue and Denies heat intolerance Zoltan/Lymph Denies easy bruising Aller/Immun Denies itchy eyes, Denies seasonal rhinorrhea and Denies wheezing Physical Exam Vital Signs: Last Vital Signs Pulse 65 11/13/25 09:21 BP 112/62 11/13/25 09:21 Pulse Ox 95 11/13/25 09:21 Oxygen Delivery Method Room Air 11/13/25 09:21 BMI result Body Mass Index 33.0 Const General: no acute distress and alert Nutritional Appearance: not obese Orientation/consciousness: Other orientation findings ( oriented) HEENT Head: Yes atraumatic Eyes General: appearance normal, both eyes and all related structures Sclerae: sclerae normal EOM: EOMs intact bilaterally Neck Neck: Yes supple Lymphatic: no lymphadenopathy noted Resp Effort & Inspection: normal respiratory effort and no use of accessory muscles Auscultation: clear to auscultation bilaterally Cardio Rate: regular rate Rhythm: regular rhythm Heart sounds: no gallops, no murmurs and no rubs Skin General skin exam: other ( warm) Extrem General: No clubbing, No cyanosis and No edema Assessment & Plan Assessment & Plan (1) Asthma-COPD overlap syndrome: Code(s): J44.9 - Chronic obstructive pulmonary disease, unspecified Category: Medical Plan: Well controlled on current regimen of Advair and air supra. Continue current regimen. Coding Level of Care Code Est Pt Level 3 (40262) Diagnoses Asthma-COPD overlap syndrome J44.9
--- OUTSIDE RECORDS SUMMARY | 2025-11-13 09:31 | XMS_ITS | Encounter Summary ---
Author Organization [employer] Address [address] [facility] 7t [place] [address] Care Team Providers Care Potato Chip Frier Name Role Phone Karla Garza Primary Care Provider [phone] Kang Garvin PharmD Unavailable [phone] Reason for Visit * Reason Comments Med Refill Encounter Details Date Type Department Care Team ([facility] st Contact Info) Description 11/20/[address] [facility] [address] [place], [place] [phone] Karla Garza ANP [address] [place] [address] Type 2 diabetes mellitus with hyperlipidemia ([facility]/HCC) Social History Tobacco Use Types Packs/Day Years [...] Care Team (Late st Contact Info) Description 11/22/2025 10:00 AM EST Medication Management [facility] [address] [place] [phone] Kang Garvin, Nayely [address] [place] [address] 12/31/2025 2:00 PM EST Office [facility] [address] [place] [phone] Karla Garza ANP [address] [place] [phone] documented as of this encounter Visit Diagnoses Diagnosis Type 2 diabetes mellitus with hyperlipidemia (HCC) documented in this encounter Care Teams Potato Chip Frier Relationship Specialty Start Date End Date Karla Garza ANP [address] [place] [phone] PCP - General Family Medicine 10/05/22 Kang Garvin, PharmD [address] [place] [phone] Pharmacist Internal Medicine 04/26/24 documented as of this encounter
--- OUTSIDE RECORDS SUMMARY | 2025-11-13 09:31 | XMS_ITS | Encounter Summary ---
Author Organization [email or web address] Address [address] [facility] 7t [place] [address] Care Team Providers Care Single Needle Operator Name Role Phone Karla Garza Primary Care Provider [phone] Kang Garvin PharmD Unavailable [phone] Reason for Visit * Reason Comments Med Refill Encounter Details Date Type Department Care Team ([facility] st Contact Info) Description 07/23/[address] [facility] [address] [place], [place] [phone] Karla Garza ANP [address] [place] [address] Type 2 diabetes mellitus with hyperlipidemia ([facility]/HCC) ([facility]/HCC) Social History Tobacco Use Types Packs/Day Years [...] Description 11/22/2025 10:00 AM EST Medication Management [facility] [address] [place] [phone] Kang Garvin PharmD [address] [place] [address] 12/31/2025 2:00 PM EST Office Visit [facility] [address] [place] [address] Karla Garza ANP [address] [place] [phone] documented as of this encounter Goals Goal Patient Goal Type Associated Problems Recent Progress Patient-Stated? Author Blood Pressure < 140/90 Blood Pressure 136/74(2024 8:22 AM EST) No Kang Garvin PharmD Hemoglobin A1c < 7 Result Component 6.4( 1:29 PM EDT) No Kang Garvin PharmD documented as of this encounter Visit Diagnoses Diagnosis Type 2 diabetes mellitus with hyperlipidemia (HCC) documented in this encounter Care Teams Single Needle Operator Relationship Specialty Start Date End Date Karla Garza ANP [address] [place] [phone] PCP - General Family Medicine 10/05/22 Kang Garvin PharmD [address] [place] [address] [phone] Pharmacist Internal Medicine 04/26/24 documented as of this encounter
--- OUTSIDE RECORDS SUMMARY | 2025-11-13 09:31 | XMS_ITS | Encounter Summary ---
Author Organization [employer] Address [address] [place] [address] 7t [place] [address] Care Team Providers Care Vessel Slagman Name Role Phone Karla Garza Primary Care Provider [phone] Kang Garvin PharmD Unavailable [phone] Reason for Visit * Reason Comments Med Refill Encounter Details Date Type Department Care Team (Late st Contact Info) Description 03/11/[address] [facility] [address] [place] [address] Karla Garza ANP [address] [place] [address] Cardiovascular event risk Social History Tobacco Use [...] Description 11/22/2025 10:00 AM EST Medication Management [facility] [address] [place] [address] [phone] Kang Garvin, PharmD [address] [place] [address] 12/31/2025 2:00 PM EST Office Visit [facility] [address] [place] [address], [place] [address] Karla Garza ANP [address] [place] [address] documented as of this encounter Visit Diagnoses Diagnosis Cardiovascular event risk documented in this encounter Care Teams Vessel Slagman Relationship Specialty Start Date End Date Karla Gazra ANP [address] [place] [address] PCP - General Family Medicine 10/05/22 Kang Garvin, Nayely [address] [place] [phone] Pharmacist Internal Medicine 04/26/24 documented as of this encounter
--- OUTSIDE RECORDS SUMMARY | 2025-11-13 09:31 | XMS_ITS | Encounter Summary ---
Author Organization [employer] Address [address] [place] [address] 7t [place] [address] Care Team Providers Care S[employer] Digital [employer] Sales Name Role Phone Karla Garza Primary Care Provider [phone] Kang Garvin PharmD Unavailable [phone] Reason for Visit * Reason Comments Med Refill Encounter Details Date Type Department Care Team (Late st Contact Info) Description 02/05/2023 Refill [facility] [address] [place] [phone] Karla Garza ANP [address] [place] [address] Type 2 diabetes mellitus with hyperlipidemia ([facility]) Social History Tobacco Use Types Packs/Day [...] Description 11/22/2025 10:00 AM EST Medication Management [facility] [address] [place] [phone] Kang Garvin, PharmD [address] [place] [address] 12/31/2025 2:00 PM EST Office Visit [facility] [address] [place] [address] Karla Garza ANP [address] [place] [address] documented as of this encounter Visit Diagnoses Diagnosis Type 2 diabetes mellitus with hyperlipidemia (HCC) documented in this encounter Care Teams [employer] Relationship Specialty Start Date End Date Karla Garza ANP [address] [place] [phone] PCP - General Family Medicine 10/05/22 Kang Garvin, ManuelD [address] [place] [address] Pharmacist Internal Medicine 04/26/24 documented as of this encounter
--- OUTSIDE RECORDS SUMMARY | 2025-11-13 09:31 | XMS_ITS | Encounter Summary ---
Author Organization [employer] Address [address] [place] [address] 7t [place] [address] Care Team Providers Care Financial Aid Director Name Role Phone Karla Garza Primary Care Provider [phone] Kang Garvin PharmD Unavailable [phone] Reason for Visit * Reason Comments Med Refill Encounter Details Date Type Department Care Team (Late st Contact Info) Description 03/02/2023 Refill [facility] [address] [place] [phone] Karla Garza ANP [address] [place] [address] Type 2 diabetes mellitus with hyperlipidemia ([facility]) Social History Tobacco Use Types [...] Description 11/22/2025 10:00 AM EST Medication Management [facility] [address] [place] [phone] Kang Garvin, PharmD [address] [place] [address] 12/31/2025 2:00 PM EST Office Visit [facility] [address] [place] [address] Karla Garza ANP [address] [place] [address] documented as of this encounter Visit Diagnoses Diagnosis Type 2 diabetes mellitus with hyperlipidemia (HCC) documented in this encounter Care Teams Financial Aid Director Relationship Specialty Start Date End Date Karla Garza ANP [address] [place] [phone] PCP - General Family Medicine 10/05/22 Kang Garvin, ManuelD [address] [place] [address] Pharmacist Internal Medicine 04/26/24 documented as of this encounter
--- OUTSIDE RECORDS SUMMARY | 2025-11-13 09:31 | XMS_ITS | Encounter Summary ---
Author Organization [employer] Address [address] [facility] 7t [place] [address] Care Team Providers Care Clinical Trials Systems Administrator Name Role Phone Karla Garza Primary Care Provider [phone] Kang Garvin PharmD Unavailable [phone] Reason for Visit * Reason Onset Date Comments Created in error 05/31/2024 Encounter Details Date Type Department Care Team ([facility] st Contact Info) Description 05/31/2024 Telephone [facility] [address] [place] [address] Karla Garza ANP [address] [place] [address] Created in error Social History Tobacco Use [...] Description 11/22/2025 10:00 AM EST Medication Management [address] [phone] Kang Garvin PharmD [address] [place] [phone] 12/31/2025 2:00 PM EST Office Visit [facility] [address] [place] [phone] Karla Garza ANP [address] [place] [phone] documented as of this encounter Goals Goal Patient Goal Type Associated Problems Recent Progress Patient-Stated? Author Blood Pressure < 140/90 Blood Pressure 136/74(2024 8:22 AM EST) No Kang Garvin PharmD Hemoglobin A1c < 7 Result Component 6.4( 1:29 PM EDT) No Kang Garvin PharmD documented as of this encounter Visit Diagnoses Not on filedocumented in this encounter Care Teams Clinical Trials Systems Administrator Relationship Specialty Start Date End Date Karla Garza ANP [address] [place] [address] [phone] PCP - General Family Medicine 10/05/22 Kang Garvin PharmD [address] [place] [address] [phone] Pharmacist Internal Medicine 04/26/24 documented as of this encounter
--- OUTSIDE RECORDS SUMMARY | 2025-11-13 09:31 | XMS_ITS | Clinical Summary ---
Author Organization [employer] Address [address] [place] [address] [address] [place] [address] Care Team Providers Care Side Seam Tender Name Role Phone Karla Garza CONSUELO Primary Care Provider [phone] Kang Garvin PharmD Unavailable [phone] Allergies Active Allergy Reactions Criticality Noted Date Comments Penicillins Hives Oxycodone-Acetaminophen 12/23/2022 Medications predniSONE (Deltasone) 1 MG tabletIndications: Rheumatoid Arthritis Take 1 tablet by mouth every other day 3 Active Alcohol Swabs padsIndications:Ty pe 2 diabetes mellitus with hyperlipidemia (HCC) Use as needed 100 each 11 3 Active Blood Glucose Monitoring Suppl (FreeStyle Lite) w/Device kitIndications:Typ e 2 diabetes mellitus with hyperlipidemia (HCC) 1 each 3 times daily. 1 kit 3 Active FreeStyle lancetsIndications :Type 2 diabetes mellitus with hyperlipidemia (HCC) Use 3x/d, dx type 2 diabetes 100 each 11 3 Active Symbicort 160-4.5 MCG/ACT inhaler Inhale 2 puffs 2 times daily. 3 Active Synjardy 12.5-1000 MGIndications:Type 2 diabetes mellitus with hyperlipidemia (HCC) TAKE 1 TABLET BY MOUTH TWICE DAILY WITH BREAKFAST AND WITH DINNER 180 tablet 3 5 Active atorvastatin (Lipitor) 40 MG tabletIndications: Type 2 diabetes mellitus with hyperlipidemia (HCC) Take 1 tablet (40 mg) by mouth Once per day. 90 tablet 3 10/09/2025 4:15 PM EST 5 Active glucose blood (FREESTYLE LITE) test stripIndications:T ype 2 diabetes mellitus with hyperlipidemia (HCC) USE DIRECTED TO TEST BLOOD SUGAR 2 OR 3 TIMES DAILY OR MORE NEEDED 100 strip 11 5 Active Airsupra 90-80 MCG/ACT aerosol INHALE 2 PUFFS BY MOUTH THREE TIMES DAILY NEEDED FOR SHORTNESS OF BREATH 5 Active folic acid (Folvite) 1 MG tablet Take 1 tablet by mouth Once per day. 5 Active methotrexate 2.5 MG tablet Take 6 tablets by mouth 1 (one) time per week. 5 Active Tirzepatide (Mounjaro) 5 MG/0.5ML solution auto-injectorIndic ations:Type 2 diabetes mellitus with hyperlipidemia (HCC) Inject 5 mg under the skin 1 (one) time per week. 2 mL 5 5 Active Aspirin Low Dose 81 MG chewable tabletIndications: Cardiovascular event risk CHEW 1 TABLET BY MOUTH EVERY DAY 90 tablet 1 10/09/2025 4:15 PM EST 5 Active amLODIPine (Norvasc) 10 MG tabletIndications: Primary 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 TAKE 1 TABLET BY MOUTH EVERY DAY IN THE MORNING 90 tablet 1 5 Active lisinopril 40 MG tabletIndications: Primary 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 TAKE 1 TABLET BY MOUTH EVERY DAY IN THE MORNING 90 tablet 1 10/09/2025 4:15 PM EST 5 Active Tirzepatide (Mounjaro) 2.5 MG/0.5ML solution auto-injectorIndic ations:Type 2 diabetes mellitus with hyperlipidemia (HCC) Inject 2.5 mg under the skin 1 (one) time per week. For 4 weeks 2 mL 5 025 Active Problems Problem Noted Date Diagnosed Date Complete edentulism 09/19/2025 Periodontal disease 08/08/2025 Dental caries 08/08/2025 correction (current) use of systemic steroids Tubular adenoma [...] Encounters Date Type Department Care Team Description 11/01/2025 8:30 AM EST Office Visit [facility] [address] [place] [address] Chase Robins DDS Complete edentulism, unspecified edentulism class (Primary Dx) 10/18/2025 9:00 AM EST Office Visit [facility] [address], [place] [address] Chase Robins DDS Complete edentulism, unspecified edentulism class (Primary Dx) 10/07/2025 Refill [facility] [place] [address] Karla Garza ANP Primary 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 10/03/2025 11:00 AM EST Office Visit [facility] [address], [place] [address] Chase Robins DDS Complete edentulism, unspecified edentulism class (Primary Dx) 09/22/2025 Refill [facility] [place] [address] Karla Garza ANP Cardiovascular event risk; Primary 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 09/19/2025 1:30 PM EST Office Visit [facility] [address] [place] [address] Chase Robins DDS Complete edentulism, unspecified edentulism class (Primary Dx) 09/13/2025 Orders Only [facility] [place] [address] Shaan Cotton MD Type 2 diabetes mellitus with hyperlipidemia (HCC) (Primary Dx) 09/13/2025 Telephone [facility] [place] [address] Shaan Cotton MD 09/13/2025 Travel 08/15/2025 Telephone [facility] [place] [address] Karla Garza ANP october recall 08/14/2025 Telephone [facility] [place] [address] Karla Garza ANP Durable Medical Equipment from Last 3 Months Immunizations Immunization Administration Dates Next Due Hep B, adult 09/13/2025,09/10/2024,07/30/2024 Influenza High-dose Quadriva lent Preservative Free 09/23/2023 Influenza injectable quadriv alent IIV4 with preservative 09/12/2018,08/08/2017 Influenza injectable quadriv alent preservative free 12/03/2022,10/29/2021,12/31/2020,08/23,09/05/2015 Influenza, High Dose Seasona l, Preservative Free 07/19/2025,07/30/2024 Influenza, Split (incl. shanel fied surface antigen) 09/20/2013 Moderna Covid-19 Vaccine 12+ 10/12/2021,02/19/20 21,01/21/2021 Moderna Covid-19 Vaccine 6+ Bivalent 12/31/2022 Pfizer Covid-19 Vaccine 12+ 09/13/2025 Pneumococcal Conjugate PCV 13 10/29/2021 Pneumococcal Conjugate [...] drink = 0.6 oz pur e alcohol) Alcohol Answer Date Recorded How often do you have a drink containing alcohol ? 0 11/01/2025 Average Number of Drinks Not on file 025 How often do you have six or more drinks on one occasion? 0 11/01/2025 Depression Answer Date Recorded Patient Health Questionnaire-9 [...] Answer Date Recorded Internet Access Q1 Yes 10/28/2025 Internet Access Q2 Not on file 10/28/2025 Sex and Gender Information Value Date Recorded Sex Assigned at Male 09/13/2022 10:17 AM EDT Legal Sex Male 10:17 AM EDT Gender Identity Male 09/13/2022 10:17 AM EDT Sexual Orientation Straight 09/13/2022 10 :17 AM EDT Last Filed Vital Signs Vital Sign Reading Time Taken Comments Blood Pressure 136/74 11/01/2025 8:22 AM EST Pulse 70 11/01/2025 8:22 AM EST Temperature 36.4 C (97.6 F) 07/01/2025 1:09 [...] Description 11/22/2025 10:00 AM EST Medication Management [facility] [address] [place] [phone] Kang Garvin, PharmD [address] [place] [phone] 12/31/2025 2:00 PM EST Office Visit [facility] [address] [place] [phone] Karla Garza, ANP [address] [place] [address] Health Maintenance Due Date Last Done Comments Anal Pap 1955 CT Colonography 1955 FIT DNA/Cologuard 1955 FIT 1955 FOBT 1955 Sigmoidoscopy 1955 Hepatitis A Vaccines (1 of 2 - Risk 2-dose series) 1974 Colonoscopy 03/19/2024 03/19/2021 Colorectal Cancer Screening 03/19/2024 Diabetes: Urine Protein Screening 09/23/2024 09/23/2023, 06/03/2021 Lipid Panel 05/23/2025 05/23/2024, 09/14, 06/03/2021 Diabetes: Hemoglobin A1C 10/01/2025 025, 03/01/2025, 11/01/2024, Additional history exists Depression Screening 11/01/2025 11/01/2024, 11/01/20 24 Eye Exam 11/02/2025 SDOH Screening 03/01/2026 03/01/2025 COVID-19 Vaccine ( season) 2026 09/13/2025, 12/31/2022, 10/12/2021, Additional history exists Dental Oral Exam 05/03/2026 11/01/2025, , 01/16/2021, Additional history exists Diabetes: Foot Exam 07/01/2026 07/01/2025, 04/23/2024, 04/23/2024, Additional history exists Alcohol/Substance Use Screening 11/01/2026 11/01/2025 Tobacco Screening 11/01/2026 11/01/2025 Dental X-Ray: Full Mouth 07/05/2028 025, 01/16/2024, 03/18/2015 DTaP/Tdap/Td Vaccines (3 - Td or Tdap) 06/10/2033 06/10/2023, 07/02/2016 Dental X-Ray: Bitewings Discontinued 03/18/2015 Pneumococcal Vaccine: 50+ Years Completed 09/23/2023, 10/29/2021, 01/26/2018 Zoster Vaccines Completed 08/13/2024, 07/0 06/2024, 09/12/2018 Hepatitis C Screening Completed 10/09/2024 RSV Patients and Patients Aged 60 years or older Completed 12/10/2024 Influenza Vaccine Completed 07/19/2025, , 09/23/2023, Additional history exists Hepatitis B Vaccines Discontinued 09/13/2025, 09/10/2024, 07/30/2024 Dental Prophylaxis Discontinued HIB Vaccines Aged Out No longer eligi [...] 1:29 PM EDT) No Kang Garvin PharmD Help patients manage their type 2 diabetes Care Plan Help patients manage their type 2 diabetes No Rosalina León Weekly blood pressure task Care Plan Weekly blood pressure task No Rosalina León Help patients manage their type 2 diabetes Care Plan Help patients manage their type 2 diabetes No Rosalina León Patient has chronic kidney disease Care Plan Patient has chronic kidney disease No Rosalina León Weekly blood pressure task Care Plan Weekly blood pressure task No Rosalina León Patient has chronic kidney disease Care Plan Patient has chronic kidney disease No Rosalina León Weekly blood pressure task Care Plan Weekly blood pressure task No Kang Garvin PharmD Weekly blood pressure task Care Plan Weekly blood pressure task No Kang Garvin PharmD Patient has chronic kidney disease Care Plan Patient has chronic kidney disease No Kang Garvin PharmD Patient has chronic kidney disease Care Plan Patient has chronic kidney disease No Kang Garvin PharmD Weekly blood pressure task Care Plan Weekly blood pressure task No Lincoln Patel Weekly blood pressure task Care Plan Weekly blood pressure task No Lincoln Patel Patient has chronic kidney disease Care Plan Patient has chronic kidney disease No Lincoln Patel Patient has chronic kidney disease Care Plan Patient has chronic kidney disease No Lincoln Patel Weekly blood pressure task Care Plan Weekly blood pressure task No Chase Robins DDS Weekly blood pressure task Care Plan Weekly blood pressure task No Chase Robins DDS Patient has chronic kidney disease Care Plan Patient has chronic kidney disease No Chase Robins DDS Patient has chronic kidney disease Care Plan Patient has chronic kidney disease No Chase Robins DDS Procedures Procedure Name Priority Date/Time Associated Diagnosis Comments CASE PRESENTATION, DETAILED AND EXTENSIVE TREATMENT PLANNING Routine 11/01/2025 8:30 AM EST PERIODIC ORAL EVALUATION - ESTABLISHED PATIENT Routine 11/01/2025 8:30 AM EST Anne COMPLETE DENTURE - MANDIBULAR Routine 11/01/2025 8:30 AM EST Max COMPLETE DENTURE - MAXILLARY Routine 11/01/2025 8:30 AM EST WAX TRY IN Routine 10/18/2025 9:00 AM EST BITE REGISTRATION Routine 10/03/2025 11: 00 AM EST DENTURE IMPRESSION Routine 09/19/2025 1: 30 PM EST SED RATE BY MODIFIED WESTERGREN Routine 08/28/2025 9:21 AM EDT C-REACTIVE PROTEIN Routine 08/28/2025 9: 21 AM EDT COMPREHENSIVE METABOLIC PANEL Routine 08/28/2025 9:21 AM EDT PANORAMIC RADIOGRAPHIC IMAGE Routine 07/04/2025 11:30 AM [...] Recently Relevant to Health Maintenance Results * Sed Rate by Modified Westergren (08/28/2025 9:21 AM EDT) Erythrocyte Sedimentation Rate 6 0 - 15 MM/HR [facility] Comment:Patients with polycy themia and many hemoglobin abnormalitiesmay have depressed sed rates whereas patients with anemiamay have elevated sed rates. 08/28/2025 9:21 AM EDT 08/28/2025 1:11 PM EDT us Generic External Data Provider LAB BLOOD ORDERAB LES Final Result Performing Organization Address City/[facility]/ZIP Co de Phone Number [facility] [address] [place] [phone] * C-reactive Protein (08/28/2025 9:21 AM EDT) C Reactive Protein 0.25 < or = 0.50 mg/dL [facility] 08/28/2025 9:21 AM EDT 08/28/2025 1:11 PM EDT [employer] External Data Provider LAB BLOOD ORDERAB LES Final Result Performing Organization Address City/[facility]/ZIP Co de Phone Number [facility] [address] [place] [phone] * (ABNORMAL) Comprehensive Metabolic Panel (08/28/2025 9:21 AM EDT) Sodium 143 135 - 145 mmol/L [facility] Potassium 4.6 3.3 - 5.1 mmol/L [facility] Chloride 108 96 - 108 mmol/L [facility] Carbon Dioxide 27 22 - 29 mmol/L [facility] Anion Gap 13 12 - 20 [facility] Urea Nitrogen (BUN) 20(H) 9 - 16 mg/dL [facility] Creatinine, Serum 0.92 0.5 - 1.4 mg/dL [facility] Estimated Glomerular Filt Rate >60 [facility] Comment:Chronic Kidney Disea se: Estimated GFR < 60 mL/min/1.28o0Neodft Kidney Disease: Estimated GFR < 15 mL/min/1.73m2 Glucose 157(H) 60 - 115 mg/dL [facility] Calcium 9.5 8.4 - 10.2 mg/dL [facility] Bilirubin, Total 0.6 0.0 - 1.0 mg/dL [facility] Aspartate Amino Transferase 28 5 - 37 U/L [facility] Alanine Aminotransferase 28 0 - 40 U/L [facility] Total Protein 7.7 6.5 - 8.0 g/dL [facility] Albumin Level 4.6 3.5 - 5.0 g/dL [facility] Alkaline Phosphatase 101 39 - 117 U/L [facility] 08/28/2025 9:21 AM EDT 08/28/2025 1:11 PM EDT us Generic External Data Provider LAB BLOOD ORDERAB LES Final Result [facility] [address] [place] [phone] * (ABNORMAL) POCT HGB A1C (07/01/2025 1:29 PM EDT) Hemoglobin A1C 6.4(A) 4.0 - 5.7 % QC Media Lot # [id number] Lot# Expiration Date ,351,[id number] Blood 07/01/2025 1:29 PM EDT us Karla Garza ANP POINT OF CARE TEST ENTER/EDIT OR DERABLES Final Result * Hepatitis C Antibody with Reflex to HCV, RNA, Quantitative, Real-Time PCR (10/09/2024) Blood Venous blood specimen / Unknown 10/09/2024 Historical Provider LAB BLOOD ORDERABLES Sofiya l Result Performing Organization Address City/[facility]/ZIP Co de Phone Number [facility] [address] [place] [phone] * Lipid Panel, Standard (05/23/2024 9:24 AM EDT) Triglycerides 101 <150 mg/dL [facility] Comment:Desirable Triglyceri de: less than 150 mg/dLBorderline High Triglyceride 150-199 mg/dLHigh Triglyceride: 200-499 mg/dLVery High Triglyceride: greater than or equal to 5OO mg/dL Cholesterol 135 <200 mg/dL [facility] Comment:Desirable Cholestero l: less than 200 mg/dLBorderline High Cholesterol: 200-239 mg/dLHigh Cholesterol: greater than 239 mg/dL LDL Cholesterol Calculated 67 <100 mg/dL [facility] Comment:Desirable LDL: less than 100 mg/dLNear Optimal/Above Optimal LDL: 110- 129 mg/dLBorderline High LDL: 130-159 mg/dLHigh LDL: 160-189 mg/dLVery High LDL: greater than or equal to 190 mg/dL HDL Cholesterol 48 >40 mg/dL [facility] Comment:Desirable HDL: great er than 40 mg/dL Note: This HDL assay may give artificially low results in patients with liver disease. 05/23/2024 9:24 AM EDT 05/23/2024 10:54 AM EDT Karla Garza ANP LAB BLOOD ORDERABLES Final Resul t Performing Organization Address City/[facility]/ZIP Co de Phone Number [facility] [address] [place] [phone] * Albumin, Random Urine W/Creatinine (09/23/2023 10:03 AM EST) Creatinine, Urine 57.91 mg/dL [facility] Microalbumin Urine 7.0 mg/L [facility] Microalbum Creatinine Ratio Ur 12.0 <30 ug/mg cr [facility] Comment:Albumin/Creatinine R atio Reference Ranges: Normal: < 30 ug/mg creatinine Microalbuminuria: 30 - 300 ug/mg creatinineClinical Albuminuria: > 300 ug/mg creatinine Urine (Urine, Random) 09/23/2023 10:03 AM EST 09/23/2023 11:06 AM EST Karla CORDERO LAB URINE ORDERABLES Final Resul t [facility] [address] [place] [phone] * Colonoscopy (03/19/2021) Colonoscopy Normal Normal Historical Provider HEALTH MAINTENANCE Final Result from Last 3 Months or Most Recently Relevant to Health Maintenance Additional Health Concerns Active Problems Noted Date Diagnosed Date Help patients manage their type 2 diabetes 10/03 Weekly blood pressure task 10/03/2025 Help patients manage their type 2 diabetes 10/03 Patient has chronic kidney disease 10/03/2025 Weekly blood pressure task 10/03/2025 Patient has chronic kidney disease 10/03/2025 Weekly blood pressure task 10/14/2025 Weekly blood pressure task 10/14/2025 Patient has chronic kidney disease 10/14/2025 Patient has chronic kidney disease 10/14/2025 Weekly blood pressure task 10/18/2025 Weekly blood pressure task 10/18/2025 Patient has chronic kidney disease 10/18/2025 Patient has chronic kidney disease 10/18/2025 Weekly blood pressure task 11/01/2025 Weekly blood pressure task 11/01/2025 Patient has chronic kidney disease 11/01/2025 Patient has chronic kidney disease 11/01/2025 Insurance [facility] STANDARD FORMERLY [facility] [employer] (HMO D-SNP) [address] [place] [address] DENTAL [facility] Care Teams Side Seam Tender Relationship Specialty Start Date End Date Karla Garza ANP [address] [place] [address] PCP - General Family Medicine 10/05/22 aKng Garvin, Nayely [address] [place] [address] Pharmacist Internal Medicine 04/26/24
--- OUTSIDE RECORDS SUMMARY | 2025-11-13 09:31 | XMS_ITS | Encounter Summary ---
Author Organization [employer] Address [address] [place] [address] [address] [place] [address] Care Team Providers Care Custodian Manager Name Role Phone Karla Garza Primary Care Provider [phone] Kang Garvin PharmD Unavailable [phone] Reason for Visit * Reason Comments Med Change Request Encounter Details Date Type Department Care Team ([facility] Contact Info) Description 12/03/2022 Refill [facility] [address] [place] [address] Karla Garza ANP [address] [place] [address] Type 2 diabetes mellitus with hyperlipidemia ([facility]/HCC) Social History Tobacco Use Types Packs/Day Years [...] Encounters Date Type Department Care Team (Late Contact Info) Description 11/22/2025 10:00 AM EST Medication Management [facility] [address] [place] [address] [phone] Kang Garvin, PharmD [address] [place] [phone] 12/31/2025 2:00 PM EST Office Visit [facility] [address] [place] [phone] Karla Garza ANP [address] [place] [phone] documented as of this encounter Visit Diagnoses Diagnosis Type 2 diabetes mellitus with hyperlipidemia (HCC) documented in this encounter Care Teams Custodian Manager Relationship Specialty Start Date End Date Karla Garza ANP [address] [place] [address] [phone] PCP - General Family Medicine 10/05/22 Kang Garvin, PharmD [address] [place] [address] [phone] Pharmacist Internal Medicine 04/26/24 documented as of this encounter
== END 2025-11-13 09:43 | disposition home or self-care (01) ==
LOC: HO.HPS 09:20
PROVIDERS: PCP Nurse Practitioner Primary Care; Visit Provider Internal Medicine Pulmonary Disease
DX: J44.9 Chronic obstructive pulmonary disease, unspecified (principal)
CPT/HCPCS: 99213

== ENCOUNTER → 2025-11-13 09:19 | Outpatient (BNVA) | payer OTHER, SELFPAY | PROVIDERS: PCP Nurse Practitioner Primary Care; Visit Provider Internal Medicine Pulmonary Disease | DX: J44.89 Other specified chronic obstructive pulmonary disease (principal); Z87.891 Personal history of nicotine dependence; Z79.899 Other long term (current) drug therapy | CPT/HCPCS: 99212 ==